=== PATIENT | female | born 1995 | race Caucasian/White ===

== ENCOUNTER 2024-05-08 23:03 | Inpatient (IN) ==
[2024-05-08] MEDS: LACTATED RINGER'S 1,000 ML IV PRN (23:45)
[2024-05-08] MEDS ORDERED: LIDOCAINE 1% LOCAL 20 ML VIAL INFIL PRN (23:49)
[2024-05-08] MEDS ORDERED: OXYTOCIN 30 UNITS/NSS 30 UNITS/500 ML BAG IV PRN (23:49)
[2024-05-09 00:12] LABS: Hematocrit (blood only) 36.6 % (37.0-47.0); Hemoglobin 12.1 g/dl (12.0-16.0); Mean Corpuscular Hemoglobin 28.9 pg (25.0-34.0); Mean Corpuscular Hgb Conc 33.1 g/dL (32.0-36.0); Mean Corpuscular Volume 87.6 fL (80.0-100.0); Mean Platelet Volume 10.7 fL (9.4-12.4); Platelet Count 194 K/uL (130-400); RDW Coefficient of Variation 13.1 % (11.5-14.5); RDW Standard Deviation 41.2 fL (36.4-46.3); Red Blood Count 4.18 M/uL (4.20-5.40); White Blood Count 13.92 K/ul (4.8-10.8)
[2024-05-09] MEDS ORDERED: BUPIVACAINE 0.25% PF 30 ML VIAL EPI PRN (00:38)
[2024-05-09] MEDS ORDERED: ePHEDrine sulfate 50 MG/ML AMP IV PRN (00:38)
[2024-05-09] MEDS ORDERED: NALOXONE HCL 1 MG in SODIUM CHLORIDE 0.9% 1,000 ML IV PRN (00:38)
[2024-05-09] MEDS ORDERED: NALBUPHINE HCL INJ 10 MG/ML AMP IV PRN (00:38)
[2024-05-09] MEDS ORDERED: LIDOCAINE 2% MPF LOCAL 5 ML VIAL EPI PRN (00:38)
[2024-05-09] MEDS ORDERED: ONDANSETRON INJ 2 MG/ML 2 ML VIAL IV PRN (00:38)
[2024-05-09] MEDS ORDERED: SODIUM CHLORIDE 0.9% PF INJ 10 ML VIAL EPI PRN (00:38)
[2024-05-09] MEDS ORDERED: fentaNYL citrate PF 100 MCG/2 ML VIAL EPI PRN (00:38)
[2024-05-09] MEDS ORDERED: ROPIVACAINE 0.5% PF 5 MG/ML 20 ML VIAL EPI PRN (00:38)
[2024-05-09] MEDS ORDERED: NALOXONE HCL 0.4 MG/1 ML VIAL/CARP IV PRN (00:38)
[2024-05-09] MEDS ORDERED: diphenhydrAMINE 50 MG/ML VIAL IV PRN (00:38)
--- NOTE | 2024-05-09 00:40 | Anesthesiology Consultation ---
Date of Service May 09, 2024 Assessment & Plan (1) Encounter for pre-operative examination: Chart Review Chart Review: Patient NOT seen in Pre Admission Testing and Acceptable Risk for Labor Epidural Consults Requested none History Height/Weight Height: 5 ft 5 in Weight: 114.759 kg Allergies Allergy/AdvReac Type Severity Reaction Status Date / Time No Known Allergies Allergy Unverified 02/27/19 08:46 Medications Home Medications Medication Instructions Recorded Confirmed Last Taken bupropion HCl 75 mg tablet 75 mg PO BID 02/26/19 02/27/19 02/26/19 08:00 desogestrel 0.15 mg-ethinyl 1 tab PO HS 02/26/19 02/27/19 02/25/19 estradiol 0.03 mg tablet (Apri) naltrexone 8 mg-bupropion 90 mg 1 tab PO BID 02/26/19 02/27/19 02/26/19 08:00 tablet,extended release hydrocodone 5 mg-acetaminophen 325 1 tab PO Q8H PRN pain #9 tabs 02/27/19 02/27/19 02/27/19 03:30 mg tablet ([place]) 1 tablet Active Medications Generic Name Dose Route Start Last Admin Trade Name Freq PRN Reason Stop Dose Admin Lactated Ringer's 1,000 mls @ 125 mls/hr 05/08/24 23:49 05/09/24 00:15 Lr IV 05/09/24 23:48 125 mls/hr .Q8H PRN Infusion L&D Protocol Protocol Past Medical History Medical History (Updated 05/09/24 @ 00:40 by Jamar Bedolla MD) Encounter for pre-operative examination No pertinent past medical history Exercise / Class Metabolic Activity II 4-5 Yardwork/Stairs/Walk up hill Past Surgical History Surgical History No pertinent past surgical history Social History Smoking Status: Never smoker Do You Dip or Chew Tobacco: No Hx Alcohol Use: No Hx Substance Use: No substance use type: does not use Physical Exam Vital Signs Last Vital Signs Temp 36.8 C 05/09/24 00:09 Pulse 71 05/09/24 01:00 Resp 18 05/09/24 00:09 BP 128/75 05/09/24 01:00 Pulse Ox 99 05/09/24 00:58 Testing Laboratory Results 05/09/24 00:00 05/09/24 00:00 05/09/24 00:05 POC Glucose 84
[2024-05-09] MEDS: BUPIVACAINE 0.25% PF 30 ML VIAL ONE (01:04)
[2024-05-09] MEDS: fentaNYL citrate PF 100 MCG/2 ML VIAL ONE (01:04)
[2024-05-09] MEDS: LIDOCAINE 2%/EPINEPHRINE 1:200,000 20 ML PF ONE (01:04)
[2024-05-09] MEDS: fentANYL 2 MCG/ML BUPIVacaine 0.125%-NSS 100ML BAG ONE (01:08)
[2024-05-09] MEDS: ePHEDrine sulfate 50 MG/ML AMP ONE (01:09)
[2024-05-09] MEDS: SODIUM CHLORIDE 0.9% PF INJ 10 ML VIAL ONE (01:09)
[2024-05-09] MEDS: SODIUM CHLORIDE 0.9% PF INJ 10 ML VIAL EPI STA (01:51)
[2024-05-09] MEDS: fentaNYL citrate PF 100 MCG/2 ML VIAL EPI STA (01:51)
[2024-05-09] MEDS: BUPIVACAINE 0.25% PF 30 ML VIAL EPI STA (01:51)
[2024-05-09] MEDS: LIDOCAINE 2%/EPINEPHRINE 1:200,000 20 ML PF EPI STA (01:51)
--- OUTSIDE RECORDS SUMMARY | 2024-05-09 03:48 | External Medical Summary ---
Author Name Unknown Address Unknown Organization K01:[facility] [address] [facility] [address] Laboratory Report Ordering Provider Test Date Status JUAN SAM 04/12/2024 15:25:14 Final Observation Date Value Abnormality Reference (Units ) Status Streptococcus agalactiae DNA [Presence] in Specimen by [place] with probe detection 04/12/2024 15:25:14 Negative Negative Final No Group B Streptococcus det ected by culture-enhanced PCR (amplified probe). GBS GBSCT - [facility] 04/12/2024 15:25:14 0.0 Final GBS SPCCT - [facility] 04/12/2024 15:25:14 32.6 Final Performing Location [facility] [place] [facility] [address] [place] [address]
--- OUTSIDE RECORDS SUMMARY | 2024-05-09 03:48 | External Medical Summary | Summary of Care ---
Author Name Unknown Organization [facility] Address [address] [place] [address] Phone [phone] Care Team Providers Care Lead Javascript Engineer Name Role Phone Sheila Hinton DEBRA Primary Care Provider [phone] Encounter Details Date Type Department Care Team (Late st Contact Info) Description 04/26/2024 11:00 AM EST Office Visit [facility], [address] [address] Inna Muro, DO [address] [place] [address] Obesity in , antepartum*; Diet controlled gestational diabetes mellitus (GDM) in third trimester; Ultrasound for screening for growth restriction; 37 weeks gestation of Allergies No known active allergiesdocumented as of this encounter (statuses as of 04/26/2024) Medications ALBUTEROL 90 MCG/ACT IN AERS 2 puffs every 4 hrs. as needed for cough, wheeze, chest tightness or shortness of breath and prior exercise 1 6 6 Active 27-0.8 MG Oral Tablet Take 1 Tablet by mouth daily at noon. Active Vitamin B-6 25 MG Oral TabletIndication s:Nausea and vomiting during Take 1 Tablet by mouth every 6 hours as needed for Nausea. 120 Tablet 1 4 Active Additional Information Patient not taking.Reported on 04/19/2024 Docusate Sodium 100 MG Oral Capsule (Colace)Indicati ons:Constipation during , antepartum Take 1 Capsule by mouth daily as needed for Constipation. 30 Capsule 2 4 Active Triamcinolone Acetonide 0.1 % External Ointment (Aristocort) Apply topically to affected area 2 times a day. To affected area. 15 g 1 4 Active Additional Information Patient not taking.Reported on 04/19/2024 Doxylamine Succinate (Sleep) 25 MG Oral Tablet (Unisom)Indicati ons:Nausea and vomiting during Take 0.5 Tablets by mouth at bedtime as needed for Nausea. 30 Tablet 1 4 Active Additional Information Patient not taking.Reported on 04/19/2024 Aspirin 81 MG Oral Tablet ChewableIndicati ons:Supervision of high-risk , second trimester Take 1 Tablet by mouth daily. 90 Tablet 2 4 Active Güdpod Verio In Vitro Strip (Glucose Blood)Indication s:Gestational diabetes mellitus (GDM) in third trimester, gestational diabetes method of control unspecified Test blood sugars 4 times a day (fasting and 1 hour after breakfast, lunch, and dinner). 125 Strip 3 4 Active Redwood SystemsTouch Verio w/Device KitIndications:G estational diabetes mellitus (GDM) in third trimester, gestational diabetes method of control unspecified Test blood sugars 4 times a day (fasting and 1 hour after breakfast, lunch, and dinner). 1 Kit 4 Active LancetsIndicatio ns:Gestational diabetes mellitus (GDM) in third trimester, gestational diabetes method of control unspecified Test blood sugars 4 times a day (fasting and 1 hour after breakfast, lunch, and dinner). 125 Each 3 4 Active documented as of this encounter (statuses as of 04/26/2024) Active Problems Problem Noted Date Diagnosed Date Diet controlled gestational diabetes mellitus (GDM) in third trimester 03/01/2024 Overview (04/25/2024): Diagnosed at 28 weeks Nutrition referral ordered; visit scheduled 03/08/2024 OneTouch Verio meter Lab Results Component Value Date/Time 50-G GESTATIONAL GLUCOSE, 1 HOUR - [facility] 139 (H) 02/16/2024 02:31 PM 100-G GESTATIONAL GLUCOSE, 1 HOUR - [facility] 180 (H) 02/23/2024 09:46 AM 100-G GESTATIONAL GLUCOSE, 2 HOUR - [facility] 133 02/23/2024 10:46 AM 100-G GESTATIONAL GLUCOSE, 3 HOUR - [facility] 51 (L) 02/23/2024 11:44 AM 100-G GESTATIONAL GLUCOSE, FASTING - [facility] 96 (H) 02/23/2024 08:45 AM 03/06/24: MFM [facility]T consult complete. Referred to Current [facility]. Instructions provided to report blood sugars each week for MFM review; recommend fasting 8-10 hours overnight along with having a bedtime snack of 30g CHO paired with protein; continue diet controlled 03/13/24: RPM reviewed; stable 03/20/20249636-TOO-wdkkgcc stable (< 50% elevated) 03/27/2024-RPM-2 of 8 elevated fasting blood sugars, 3 of 8 elevated post prandial breakfast, 1 elevated post prandial lunch, and 3 of 7 elevated post prandial dinner. Advised to watch diet, eat bedtime snack, and avoid fasting longer than 8 to 10 hours. Will review again next week. 04/03/20248532-GPK-nszzct (1 elevated post prandial breakfast and 1 post prandial dinner) 04/11/20242534-OYI-wfjcrqo stable (< 50% elevated) 04/17/20247718-KWM-jioqivp stable (< 50% elevated) 04/25/2024-RPM-4 of 7 elevated fasting blood sugars. Advised to watch diet, eat bedtime snack, and avoid fasting longer than 8 to 10 hours. Will review again next week. Assessment & Plan (04/26/2024 12:18 PM EST): Working with [facility]T. Assessment & Plan (03/03/2024 11:03 AM EST): CONSIDERATIONS: Reviewed etiology and risks associated with gestational diabetes mellitus (GDM), including risks to , fetus, and maternal progression to Type 2 DM. Instructed on proper use of glucometer; supplies ordered, if indicated. Advised that life-long screening for diabetes is recommended every 1-3 years. RECOMMENDATIONS: Recommend monitoring blood sugars with daily fasting blood sugar (maintained at less than 95) and 1 hour postprandial measurements (maintained at less than 140). Medications should be adjusted to maintain these target values. Report levels to MFM (Maternal- Medicine) weekly. Recommend nutrition consult with RDN (Registered Dietitian Data Entry Email Processor). Lifestyle changes are also indicated including optimizing gestational weight gain and physical activity of 30 minutes per day, if not otherwise contraindicated in . Insulin is preferred if medications are indicated to optimize euglycemia. Metformin (preferred over glyburide) may also be used in some circumstances. Reviewed the risks and benefits of each. Recommend ultrasound, surveillance and delivery as follows: A1GDM, delivery should be accomplished by 41w0d. A2GDM, recommend growth assessment with MFM every 4 weeks, initiate surveillance with twice weekly NSTs at 32 weeks and continue until delivery at 39 weeks. Recommend intrapartum monitoring every 1-2 hours (A2GDM) or every 4 hours (A1GDM) and treat with insulin if indicated. Recommend 2-hour glucose tolerance testing with 75-gram glucose load during admission (or 6-8 weeks if not completed). Assessment & Plan (03/01/2024 10:31 AM EST): 1'GTT and 3'GTT reviewed. Formal ADAPT consult scheduled for next week. Sharee has started checking sugars and reports all are within target range and she has an appt with the cook tortilla as well. We reviewed that additional u/s and surveillance will be needed it GDMA2 develops; encouraged follow up with ADAPT in case sugars do increase and medication is required. Questions answered. Low risk NIPT appreciated. Supervision of high-risk , [facility] 12/28/2023 Overview (04/16/2024): Estimated Date of Delivery: 05/11/24 Continue vitamin. O negative - Rhogam given on 02/16/2024. Rubella and varicella immune. Qnatal testing low risk. S/p anatomy ultrasound. Has GDM. S/p CBC - normal. No anemia. Tdap vaccine completed. GBS culture at 36 weeks. RSV vaccine - completed on 04/12/2024. Completed influenza vaccine. Desires to breastfeed. contraception: IUD at 6 weeks appointment. Constipation during , antepartum 2023 Overview (02/18/2024): Has Colace for constipation. May use Miralax as needed. Rh negative, antepartum 10/12/2023 Overview (02/18/2024): Rhogam given 02/16/2024. Obesity in , antepartum 10/12/2023 Overview (03/06/2024): Pre-gravid BMI 39.15. Class 2 Assessment & Plan (03/03/2024 11:03 AM EST): CONSIDERATIONS: Discussed obstetrical risks associated with class II obesity (pre- BMI of 35 to 39.9) Reviewed that the accuracy of ultrasound at diagnosing anomalies is significantly decreased for women with an increased BMI. RECOMMENDATIONS: Recommend restricting weight gain during to 11-20 pounds. Patient should be referred for a nutrition consult. Recommend evaluation for signs and symptoms (snoring, excessive daytime sleepiness witnessed apnea or unexplained hypoxia) of obstructive sleep apnea. If any of these are present, referral to Sleep Medicine specialist for further evaluation should be considered. Recommend Maternal- Medicine ultrasound for anatomy at 20 weeks and for growth every 4 weeks thereafter. For patients with Class 2 obesity, we recommend weekly surveillance starting at 37 weeks. Nausea and vomiting during 10/12/2023 NONALLERGIC RHINITIS 10/06/2005 Bronchospasm, exercise-induced Polycystic ovaries Estimated Date of Delivery Comme nts Yes 05/11/2024 Based on last me nstrual period of 08/05/2023 (Exact Date) documented as of this encounter (statuses as of 04/26/2024) Resolved Problems Problem Noted Date Diagnosed Date Resolved Date Low-lying placenta 02/18/2024 Overview (02/18/2024): Has follow up ultrasound scheduled. Advised no heavy lifting and no sexual intercourse. Declines Maternal Medicine referral. Assessment & Plan (03/01/2024 10:29 AM EST): Resolved. Migraine 12/23/2022 documented as of this encounter (statuses as of 04/26/2024) Immunizations Name Administration Dates Next Due COVID-19 mRNA, LNP-s, No Pre serve, 2-Dose Series ([facility]) 11/21/2020,10/31/2020 HEPATITIS B VACCINE, RECOMB, 20 MCG/ML, ADULT (HEPLISAV-B) 04/08/2023,03/04/2023 Pneumococcal Conjugate Vacci ne, 20-valent ([id number]) 12/23/2022 RSV Vac., Bivalent, Perfusio n F, Pf,0.5 Ml (Abrysvo) 04/12/2024 Seasonal Influenza Vac, Quad , Cell culture, with Preserve, 6 mon and above, (Flucelvax) 02/06/2019,01/31/2018,12/17/2016 Seasonal Influenza Virus Vac cine, Unspecified Formulation 01/31/2018,12/17/2016 Seasonal Influenza, PF, 6 M & above, IM , (FluLaval or Fluzone) 12/23/2022 Seasonal Influenza, Trivalen t, (IIV3), PF, (Fluzone) 12/22/2023 TDAP, Age 7 and older, IM (Adacel) 02/16/2024,,2004 documented as of this encounter Social History Tobacco Use Types Packs/Day Years Used Date Smoking Tobacco: Former Cigarettes 0.3 3 2 015 - 2018 Passive Smoke Exposure: Past Smokeless Tobacco: Never Comments:no passive smoke ex posures Alcohol Use Standard Drinks/Week Comments Not Currently 0 (1 standard drink = 0.6 oz pur e alcohol) denies in PHQ-2 Answer Date Recorded PHQ Adult Total Score 0 12/23/2022 Hunger Vital Sign Answer Date Recorded Within the past 12 months, y ou worried that your food would run out before you got the money to buy more. Never true 12/09/19 24 Within the past 12 months, t he food you bought just didn't last and you didn't have money to get more. Never true 12/09/2023 [place] Depression Scale Answer Date Recorded [place] Depression Scale Total 5 03/16/2024 The thought of harming myself has occurred to me . Never 03/16/2024 Childcare Answer Date Recorded Do you feel overwhelmed with taking care of a child, family member or friend? No 12/09/2023 Does your family need help f inding childcare? (Household - for ages 0-17 years) Not on file 12/09/2023 Clothing Answer Date Recorded Have you been unable to get clothing when it was really needed? No 12/09/2023 Is your family able to get c lothes or diapers when needed? (Household - for ages 0-17 years) Not on file 12/09/2023 Personal Safety Answer Date Recorded Do you feel unsafe or have concerns for your saf ety? No 12/09/2023 Do you have concerns for you r family's safety? (Household - for ages 0-17 years) Not on file 12/09/2023 Utilities Answer Date Recorded Do you have trouble paying y our heating, water, or electric bill? No 12/09/2023 Is your family able to pay t he heat, water, or electric bill? (Household - for ages 0-17 years) Not on file 12/09/2023 Does your family have access to good internet? (Household - for ages 0-17 years) Not on file 12/09/2023 Employment Status Answer Date Recorded Are you unemployed or without regular income? No 12/09/2023 Does the household have a [facility] source of income? (Household - for ages 0-17 years) Not on file 12/09/2023 Social Connections Answer Date Recorded How often do you feel lonely or isolated from th ose around you? Never 12/09/2023 Financial Resource Strain Answer Date R ecorded Do you have any trouble payi ng for your medications, or do you think you might in the future? No 12/09/2023 Does your family have troubl e paying for medicine? (Household - for ages 0-17 years) Not on file 12/09/2023 Transportation Needs Answer Date Record ed Do you have trouble getting a ride to medical visits or work? (Adult - for ages 18 years and over) Not on file 12/09/2023 Does your family have a hard time getting a ride to doctors visits? (Household - for ages 0-17 years) Not on file 12/09/2023 Has lack of transportation k ept you from medical appointments, meetings, work, or from getting things needed for daily living? Check all that apply. No 12/09/2023 Do you (or your family) have trouble finding or paying for a ride (transportation)? (Household - for ages 0-17 years) Not on file 12/09/2023 Housing Stability Answer Date Recorded Do you currently live in a s helter or have no steady place to sleep at night? No 12/09/2023 Do you think you are at risk of becoming homeless? (Adult - for ages 18 years and over) Not on file 12/09/2023 Does your family worry about paying for your home or becoming homeless? (Household - for ages 0-17 years) Not on file 0 12/09/2023 Are you homeless or worried that you might be in the future? No 12/09/2023 Are you (or your family) rogelio eless or worried that you might be in the future? (Household - for ages 0-17 years) Not on file Food Insecurity Answer Date Recorded Do you need food for this week? No 12/09/2023 Are you able to get enough f ood for your family? (Household - for ages 0-17 years) Not on file 12/09/2023 Does your family need food t his week? (Household - for ages 0-17 years) Not on file 12/09/2023 Do you always have enough fo od for your family? (Household - for ages 0-17 years) Not on file 12/09/2023 Food Insecurity Answer Date Recorded Within the past 12 months, y ou worried that your food would run out before you got the money to buy more. Never true 12/09/19 24 Within the past 12 months, t he food you bought just didn't last and you didn't have money to get more. Never true 12/09/2023 Do you need food for this week? 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 Ultrasound for screening for growth restriction 37 weeks gestation of Ultrasound summary: Patient presented at 37w 6d for growth assessment. Normal growth with EFW 3146 g at 44%ile. Normal SUJATA at 15 cm. Cephalic presentation. I reviewed the ultrasound images. Sharee was given the opportunity to meet with me if she had any questions. Please refer to the ultrasound report for additional details about today's ultrasound examination. RECOMMENDATIONS: Follow up with MFM for ultrasound as clinically indicated. See prior formal MFM consultation note. Thank you for allowing us to participate in the care of this patient. Please call with any questions. Inna Muro DO 04/26/2024 12:18 PM documented in this encounter Miscellaneous Notes * Assessment & Plan Note - Inna Muro DO - 04/26/2024 12:18 PM EST Associated Problem(s): Diet controlled gestational diabetes mellitus (GDM) in third trimester Working with [facility]. documented in this encounter Plan of Treatment Upcoming Encounters Date Type Department Care Team (Late st Contact Info) Description 04/27/2024 2:30 PM EST Telemedicine Nutrition Services [address] [place] [address] Michael Goddard, RDN [facility] [place] [address] 05/03/2024 1:30 PM EST Office Visit Gynecology/Obstetrics Paula Jean [address] [place] [address] Kezia Phillips, DNP, CNM [address] [place] [address] Ted, Non Stress Tests Paula [address] [place] [address] 05/09/2024 1:15 PM EST Office Visit Gynecology/Obstetrics Paula Jean [address] [place] [address] Magda Latif CRNP [address] [place] [address] Ted, Non Stress Tests Paula [address] [place] [address] Health Maintenance Due Date Last Done Comments HPV/Co-Test 09/20/2023 COVID-19 Vaccine ( season) 2023 11/21/2020, 10/31/2020 Depression Screening 12/24/2023 12/23/2022 Cervical Cancer Screening 01/20/2026 Pap Smear 01/20/2026 01/20/2023 DTap/Tdap Vaccines (4 - Td or Tdap) 02/15/2034 02/16/2024, 08/31/2018, 2004 Pneumococcal Vaccine: Pediatrics (0 to 5 Years) and At-Risk Patients (6 to 18 Years and 19+ Years) Completed 12/23/2022 Hepatitis B Vaccine Completed 04/08/2023, Influenza Vaccine (FLU shot) Completed 04/2023, 12/23/2022, 02/06/2019, Additional history exists HPV (Gardasil) Vaccine Aged Out No lo nger eligible based on patient's age to complete this topic MENINGOCOCCAL (MENACTRA/MENVEO) Aged Out No longer eligible based on patient's age to complete this topic documented as of this encounter Medical Devices Not on filedocumented as of this encounter Visit Diagnoses Diagnosis Diet controlled gestational diabetes mellitus (GDM) in third trimester- Primary Low-lying placenta Hemorrhage from placenta previa, unspecified as to episode of care Encounter for anatomic survey 29 weeks gestation of state, incidental Supervision of high risk in third trimester- Primary Unspecified high-risk 30 weeks gestation of state, incidental Diet controlled gestational diabetes mellitus (GDM) in third trimester Obesity in , antepartum Obesity complicating , childbirth, or the puerperium, antepartum condition or complication Obesity in , antepartum- Primary Obesity complicating , childbirth, or the puerperium, antepartum condition or complication Diet controlled gestational diabetes mellitus (GDM) in third trimester Ultrasound for screening for growth restriction screening for growth retardation using ultrasonics 37 weeks gestation of state, incidental documented in this encounter Care Teams Lead Javascript Engineer Relationship Specialty Start Date End Date Sheila Hinton CRNP [address] [place] [id number] PCP - General Nurse Practitioner 12/23/22 documented as of this encounter
--- OUTSIDE RECORDS SUMMARY | 2024-05-09 03:48 | External Medical Summary | Summary of Care ---
Author Name Unknown Organization [facility] Address [address] [place] [address] Phone [phone] Care Team Providers Care Drier Name Role Phone Sheila Hinton DEBRA Primary Care Provider [phone] Reason for Visit * Reason Comments Return Visit Encounter Details Date Type Department Care Team (Late st Contact Info) Description 04/12/2024 1:45 PM EST Office Visit Gynecology/Obstetics [place] [address] [place] [id number] Sasha Lima PA-C [address] [place] [address] Supervision of high-risk , third trimester*; Rh negative, antepartum; Diet controlled gestational diabetes mellitus (GDM) in third trimester; Obesity in , antepartum Allergies No known active allergiesdocumented as of this encounter (statuses as of 04/16/2024) Medications ALBUTEROL 90 MCG/ACT IN AERS 2 puffs every 4 hrs. as needed for cough, wheeze, chest tightness or shortness of breath and prior exercise 1 6 10/06/ 6 Active 27-0.8 MG Oral Tablet Take 1 Tablet by mouth daily at noon. Active Vitamin B-6 25 MG Oral TabletIndication s:Nausea and vomiting during Take 1 Tablet by mouth every 6 hours as needed for Nausea. 120 Tablet 1 4 Active Additional Information Patient not taking.Reported on 03/06/2024 Docusate Sodium 100 MG Oral Capsule (Colace)Indicati ons:Constipation during , antepartum Take 1 Capsule by mouth daily as needed for Constipation. 30 Capsule 2 4 Active Triamcinolone Acetonide 0.1 % External Ointment (Aristocort) Apply topically to affected area 2 times a day. To affected area. 15 g 1 4 Active Additional Information Patient not taking.Reported on 03/06/2024 Doxylamine Succinate (Sleep) 25 MG Oral Tablet (Unisom)Indicati ons:Nausea and vomiting during Take 0.5 Tablets by mouth at bedtime as needed for Nausea. 30 Tablet 1 4 Active Additional Information Patient not taking.Reported on 03/06/2024 Aspirin 81 MG Oral Tablet ChewableIndicati ons:Supervision of high-risk , second trimester Take 1 Tablet by mouth daily. 90 Tablet 2 4 Active OneTouch Verio In Vitro Strip (Glucose Blood)Indication s:Gestational diabetes mellitus (GDM) in third trimester, gestational diabetes method of control unspecified Test blood sugars 4 times a day (fasting and 1 hour after breakfast, lunch, and dinner). 125 Strip 3 4 Active OneTouch Verio w/Device KitIndications:G estational diabetes mellitus (GDM) [...] as of this encounter (statuses as of 04/16/2024) Active Problems Problem Noted Date Diagnosed Date Diet controlled gestational diabetes mellitus (GDM) in third trimester 03/01/2024 Overview (04/11/2024): Diagnosed at 28 weeks Nutrition referral ordered; [...] continue diet controlled 03/13/24: RPM reviewed; stable 03/20/20242394-RHR-omrpszo stable (< 50% elevated) 03/27/2024-RPM-2 of 8 elevated fasting blood sugars, 3 of 8 elevated post prandial breakfast, 1 elevated post prandial lunch, and 3 of 7 elevated post prandial dinner. Advised to watch diet, eat bedtime snack, and avoid fasting longer than 8 to 10 hours. Will review again next week. 04/03/20246733-EOW-rhcxix (1 elevated post prandial breakfast and 1 post prandial dinner) 04/11/20249714-YYC-selakuz stable (< 50% elevated) Assessment & Plan (03/03/2024 11:03 AM EST): [...] Recommend nutrition consult with RDN (Registered Dietitian Malted Milk Supervisor). Lifestyle changes are also indicated including optimizing [...] and she has an appt with the closet builder as well. We reviewed that additional u/s and surveillance will be needed it GDMA2 develops; encouraged follow up with [facility] in case sugars do increase and medication is required. Questions answered. Low risk NIPT appreciated. Supervision of high-risk , third [facility] 12/28/2023 Overview (04/16/2024): Estimated Date [...] as of this encounter (statuses as of 04/16/2024) Resolved Problems Problem Noted Date Diagnosed Date Resolved Date Low-lying placenta 02/18/2024 Overview (02/18/2024): Has follow up ultrasound scheduled. Advised no heavy lifting and no sexual intercourse. Declines Maternal Medicine referral. Assessment & Plan (03/01/2024 10:29 AM EST): Resolved. Migraine 12/23/2022 documented as of this encounter (statuses as of 04/16/2024) Immunizations Name Administration Dates Next Due COVID-19 mRNA, LNP-s, No Pre serve, 2-Dose Series ([employer]) 11/21/2020,10/31/2020 HEPATITIS B VACCINE, RECOMB, 20 MCG/ML, ADULT (HEPLISAV-B) 04/08/2023,03/04/2023 Pneumococcal Conjugate Vacci ne, 20-valent ([id number]) 12/23/2022 RSV Vac., Bivalent, Perfusio n F, [...] Former Cigarettes 0.3 3 2 015 - 2017 Passive Smoke Exposure: Past Smokeless Tobacco: Never [...] money to get more. Never true 12/09/2023 [place] Depression Scale Answer Date Recorded [place] Depression Scale Total 5 03/16/2024 The thought [...] No 12/09/2023 Does the household have a re lar source of income? 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 BP 108/72 | Wt 114 kg (251 lb 4.8 oz) | LMP 08/05/2023 (Exact Date) | BMI 41.87 kg/m | BSA 2.29 m Doing well. Denies vaginal bleeding, leaking of fluid, vaginal pressure, abdominal pain, or abnormal vaginal discharge. Denies blurry vision or right upper quadrant pain. Patient states she feels good movement. Patient has about two raisa ly contractions per day. Patient had a headache yesterday, but resolved. Physical Exam General: alert and oriented, no acute distress Pulmonary: normal respiratory effort, no accessory muscle use. Abdomen: gravid, soft, non-tender heart rate: 140's bpm Pelvic Exam: external genitalia and vagina anatomy within normal limits, GBS culture obtained today. Network Internship Documentation Patient offered fruit buying grader and declined. [facility] Problems (from 09/24/23 to present) Problem Noted Diagnosed Resolved Diet controlled gestational diabetes mellitus (GDM) in third trimester 03/01/2024 by Inna Muro DO No Diagnosed at 28 weeks Nutrition referral ordered; [...] continue diet controlled 03/13/24: RPM reviewed; stable 03/20/20241334-MMV-cifmkis stable (< 50% elevated) 03/27/2024-RPM-2 of 8 elevated fasting blood sugars, 3 of 8 elevated post prandial breakfast, 1 elevated post prandial lunch, and 3 of 7 elevated post prandial dinner. Advised to watch diet, eat bedtime snack, and avoid fasting longer than 8 to 10 hours. Will review again next week. 04/03/20249859-DTO-ebglub (1 elevated post prandial breakfast and 1 post prandial dinner) 04/11/20245884-JYE-iadvcym stable (< 50% elevated) Supervision of high-risk , third trimester 12/28/2023 by Sasha Lima PA-C No Estimated Date of Delivery: 05/11/24 Continue vitamin. O negative - Rhogam given on 02/16/2024. Rubella and varicella immune. Qnatal testing low risk. S/p anatomy ultrasound. Has GDM. S/p CBC - normal. No anemia. Tdap vaccine completed. GBS culture at 36 weeks. RSV vaccine - given on 04/12/2024. Completed influenza vaccine. contraception: IUD at 6 weeks appointment. Constipation during , antepartum 10/16/2023 by Sasha Lima PA-C No Has Colace for constipation. May use Miralax as needed. Rh negative, antepartum 10/12/2023 by Sasha Lima PA-C No Rhogam given 02/16/2024. Obesity in , antepartum 10/12/2023 by Sasha Lima PA-C No Pre-gravid BMI 39.15. Class 2 Plan: -GBS culture obtained today. -Desires to deliver at [facility]. Advised next appointment at [facility]. Patient agrees. -Desires to breastfeed. - contraception: IUD at 6 weeks appointment. -Advised weekly non stress test starting at 37 weeks. Patient aware. Counseled patient to call triage/go to labor and delivery if she has any vaginal bleeding, leaking of fluid, vaginal pressure, 6 or more painful contractions in an hour, abdominal pain, decreased movements, headaches, blurry vision, or right upper quadrant pain. Patient verbalized understanding. RTO in 1 week for return appointment or sooner if any concerns. Sasha Larson PA-C documented in this encounter Nursing Notes * Kath Fischer RN - 04/12/2024 2:26 PM EST Pre-Administration Time Out Procedure Performed: Yes Patient Identified (Ask Name/Date of ): Yes Does the patient have a fever greater than 101 degrees today? No Patient allergic to latex? No Has the patient ever fainted after receiving an injection? No VFC Stock: No Immunization(s) verified: Yes, Immunization Name: RSV Abrysvo, VIS Sheet(s) given: Yes Verified Side and Site: Yes Verified Shot(s) with Parent(s)/Patient: Yes * Kath Fischer RN - 04/12/2024 1:49 PM EST Pt presents for ALLA. Reports she has questions regarding her recent u/s results. documented in this encounter Plan of Treatment Upcoming Encounters Date Type Department Care Team (Late st Contact Info) Description 04/19/2024 1:45 PM EST Office Visit Gynecology/Obstetrics [facility] [address] [place] [address] BackerMagda CRNP [address] [place] [address] 04/26/2024 11:00 AM EST Imaging Radiology, [facility] [address] [place] [address] 04/26/2024 1:45 PM EST Office Visit Gynecology/Obstetics [place] [address] [place] [phone] Sasha Lima PA-C [address] [place] [address] 04/27/2024 2:30 PM EST Telemedicine Nutrition Services [place] [address] [place] [address] Michael Goddard, RDN [address] [place] [phone] 05/10/2024 1:45 PM EST Office Visit Gynecology/Obstetics [place] [address] [place] [phone] Sasha Lima PA-C [address] [place] [address] 05/17/2024 1:45 PM EST Office Visit Gynecology/Obstetics [place] [address] [place] [phone] Sasha Lima PA-C [address] [place] [address] Health Maintenance Due Date Last Done Comments [...] Not on filedocumented as of this encounter Procedures Procedure Name Priority Date/Time Associated Diagnosis Comments GROUP B STREP CULTURE/PCR Routine 04/12/2024 3:25 PM EST Supervision of high-risk , third trimester documented in this encounter Results * GROUP B STREP CULTURE/PCR (04/12/2024 3:25 PM EST) Group B Strep PCR Result Negative Negative 04/13/2024 7:52 PM EST LABORATORY [facility] Comment:No Group B Streptoco ccus detected by culture-enhanced PCR (amplified probe). GBS GBSCt 0.0 04/13/2024 7:52 PM EST LABORATORY [facility] GBS SPCCt 32.6 04/13/2024 7:52 PM EST LABORATORY [facility] Swab Rectum and vagina, CS / Unknown 04/12/2024 3:25 PM EST 04/12/2024 4:36 PM EST us Sasha Bosch PA-C LAB MICRO - GENER AL ORDERABLES Final Result LABORATORY [facility] [address] [place] [address] documented in this encounter Visit Diagnoses Diagnosis Diet controlled [...] or the puerperium, antepartum condition or complication Supervision of high-risk , third trimester- Primary Rh negative, antepartum Rhesus isoimmunization affecting management of mother, antepartum condition Diet controlled gestational diabetes mellitus (GDM) in third trimester Obesity in , antepartum Obesity complicating , childbirth, or the puerperium, antepartum condition or complication documented in this encounter Care Teams Drier Relationship Specialty Start Date End Date Sheila Hinton CRNP [address] [address] PCP - General Nurse Practitioner 12/23/22 documented as of this encounter"
--- OUTSIDE RECORDS SUMMARY | 2024-05-09 03:48 | External Medical Summary | Summary of Care ---
Author Name Unknown Organization [facility] Address [address] [place] [address] Phone [phone] Care Team Providers Care Mold Builder Name Role Phone Sheila Hinton DEBRA Primary Care Provider [phone] Reason for Visit * Reason Comments DSMT Follow-Up * Evaluate & Treat - Unlimited Visits (Within 3 days (urgent)) - Authorized Specialty Diagnoses / Procedures Referred By Contac t Referred To Contact Homicide Squad Captain / Nutrition Services Diagnoses Gestational diabetes mellitus (GDM) in third trimester, gestational diabetes method of control unspecified Sasha Lima PA-C [address] [place] [address] Phone: tel: fax: Referral ID Status Reason Start Date Expiration Date Visits Requested Visits Authorized [id number] Authorized Specialty Services Required 02/24/2024 02/26/[phone] Encounter Details Date Type Department Care Team (Late st Contact Info) Description 04/27/2024 2:30 PM EST Telemedicine Nutrition Services [place] [address] [place] [address] Rd [address] [place] [address] Michael Goddard RDN [address] [place] [address] Diet controlled gestational diabetes mellitus (GDM) in third trimester*; Gestational diabetes mellitus (GDM) in third trimester, gestational diabetes method of control unspecified Allergies No known active allergiesdocumented as of this encounter (statuses as of 04/28/2024) Medications ALBUTEROL 90 MCG/ACT IN AERS 2 [...] as of this encounter (statuses as of 04/28/2024) Active Problems Problem Noted Date Diagnosed Date [...] continue diet controlled 03/13/24: RPM reviewed; stable 03/20/20242263-CWF-cuqwjsk stable (< 50% elevated) 03/27/2024-RPM-2 of 8 elevated fasting blood sugars, 3 of 8 elevated post prandial breakfast, 1 elevated post prandial lunch, and 3 of 7 elevated post prandial dinner. Advised to watch diet, eat bedtime snack, and avoid fasting longer than 8 to 10 hours. Will review again next week. 04/03/20242689-CBI-jgyhwh (1 elevated post prandial breakfast and 1 post prandial dinner) 04/11/20245352-QZZ-pcskgny stable (< 50% elevated) 04/17/20241409-DLC-hvvvlwt stable (< 50% elevated) 04/25/2024-RPM-4 of 7 [...] Recommend nutrition consult with RDN (Registered Dietitian Consulting Business Developer). Lifestyle changes are also indicated including optimizing [...] and she has an appt with the bumper machine operator as well. We reviewed that additional u/s and surveillance will be needed it GDMA2 develops; encouraged follow up with [facility] in case sugars do increase and medication is required. Questions answered. Low risk NIPT appreciated. Supervision of high-risk , third trimbrenda ter 12/28/2023 Overview (04/16/2024): Estimated Date of Delivery: [...] as of this encounter (statuses as of 04/28/2024) Resolved Problems Problem Noted Date Diagnosed Date Resolved Date Low-lying placenta 02/18/2024 Overview (02/18/2024): Has follow up ultrasound scheduled. Advised no heavy lifting and no sexual intercourse. Declines Maternal Medicine referral. Assessment & Plan (03/01/2024 10:29 AM EST): Resolved. Migraine 12/23/2022 documented as of this encounter (statuses as of 04/28/2024) Immunizations Name Administration Dates Next Due COVID-19 mRNA, LNP-s, No Pre serve, 2-Dose Series ([employer]) 11/21/2020,10/31/2020 HEPATITIS B VACCINE, RECOMB, 20 MCG/ML, ADULT (HEPLISAV-B) 04/08/2023,03/04/2023 Pneumococcal Conjugate Vacci ne, 20-valent ([id number]) 12/23/2022 RSV Vac., Bivalent, Perfusio n F, [...] money to get more. Never true 12/09/2023 [place] Depression Scale Answer Date Recorded [place] Depression Scale Total 5 03/16/2024 The thought [...] 12/09/2023 Does the household have a re gular source of income? 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 I was not in a hospital or clinic location. After connecting through [email or web address], patient was verified with two unique identifiers. Patient (or authorized legal signs sales representative) was then informed that this was a Telemedicine visit and being conducted confidentially over secure lines. Methods to assure confidentiality were taken. Patient acknowledged consent and understanding of privacy and security of the Telemedicine visit. The patient agreed to participate. Last order of DIABETES MANAGEMENT EDUCATION (ADA) REFERRAL was found on 02/24/2024 from Telephone on02/24/2024 Last order of CLINICAL NUTRITION AND DIABETES EDUCATION ANNUAL RENEWAL was found on 03/27/2024 from Telephone on 03/27/2024 No order of PEDIATRIC DIABETES MANAGEMENT EDUCATION (ADA) REFERRAL OP is found. 38 weeks. JOSE ALFREDO 05/11/[address]? Yes Participant scheduled for 1:1 training due to lack of classes scheduled within 2 months of appointment. What diabetes concerns and/or barriers to care would you like to discuss in your appointment: No specific questions or concerns. In your words, what is diabetes? Managing blood sugar. Do you know the risks of uncontrolled diabetes? Yes Do you believe that diabetes can be controlled? Yes Are you ready to make small changes to help with diabetes self-management: Yes What type of diabetes do you have? Gestational Diabetes Mellitus: Are you aware of the post- glucose screening recommendations? Yes Diabetes diagnosis year: 2024 Do you have a family history of diabetes? Yes Have you had any previous diabetes education? Yes Support systems: Spouse Parents Barriers to care: None Special Needs: None Psychosocial Screening: Lately have you been feeling down, depressed or hopeless most of the day? No How Do You Manage Stress? Asked/Not Answered Food Insecurity: Within the past 12 months, I worried whether our food would run out before we got money to buy more. No Within the past 12 months, the food we bought just did not last and we did not have money to buy more. No Sleep Health: Reports she sleeps "like a rotisserie chicken." Diabetes Medications: None Monitoring blood glucose, interpreting and using results Self-Monitoring Blood Glucose Source of Information: Participant verbally reviewed from memory After meals >140mg/dL After potatoes: 160mg/dL AM <95mg/dL: 96mg/dL today but not regularly. Summary: High blood glucose ~3 times a week since taking GDM class. Hypoglycemia?: No Diet: Describes typical diet history/24-hour recall Breakfast: breakfast sandwich from work (126mg/dL) Snack: Protein bar Lunch: Chicken wrap (118mg/dL) Snacks: protein bar Dinner: Chicken and veg tonight. Taco in a carb friendly wrap last night. Snacks: none Drinks: Water, liquid IV, diet soda, poppy Restaurant meals: daily Counting Carbohydrates Weight management review: Wt Readings from Last 6 Encounters: 04/25/24 115.7 kg (255 lb) 04/19/24 115.4 kg (254 lb 6.4 oz) 04/12/24 114 kg (251 lb 4.8 oz) 03/29/24 115.6 kg (254 lb 12.8 oz) 03/16/24 116.4 kg (256 lb 9.6 oz) 03/01/24 116 kg (255 lb 11.2 oz) Recent weight changes: 38 weeks. weight gain 20lb Physical Activity: On feet all day at work. ADA STANDARDS OF CARE/BUNDLE MEASURES Diabetes Bundle / Standards of Care: Gestational Diabetes Participant Therapy Management Plan: Hypertension: BP Readings from Last 3 Encounters: 04/25/24 112/70 04/19/24 110/70 04/12/24 108/72 Gestational Diabetes Participant, being monitored by SUPERVISOR SOUND TECHNICIAN. Dyslipidemia: Lab Results Component Value Date/Time LDL CHOLESTEROL (CALCULATED) - [facility] 128 02/27/2023 09:56 AM Lab Results Component Value Date/Time TRIGLYCERIDES - [facility] 53 02/27/2023 09:56 AM CHOLESTEROL - [facility] 193 02/27/2023 09:56 AM HDL CHOLESTEROL - [facility] 54 02/27/2023 09:56 AM Gestational Diabetes Mellitus Participant Kidney function review: No results found for: "ESTIMATED GLOMERULAR FILTRATION RATE - [facility]" No results found for: "ALBUMIN / CREATININE RATIO", "ALBUMIN / CREATININE RATIO, URINE - [facility]" No results found for: "PROTEIN/ CREATININE RATIO", "PROTEIN/ CREATININE RATIO, URINE - [facility]" Gestational Diabetes Mellitus Participant DSMT/Diabetes MNT Diagnosis: Food and nutrition related knowledge deficit related to gestational diabetes management as evidenced by need for education DSMT Initial Visit Assessment of Content Areas: Choose the answer that represents the participant's competency in each area. All need to be assessed at initial. Areas taught must match intervention. If content area not assessed and/or intervened today, it will be deferred to future session. Diabetes disease process and treatment process: Needs review (2) Incorporating nutrition management into lifestyle: Needs review (2) Incorporating physical activity into lifestyle: Needs review (2) Using medications safely: Not assessed (0) Monitoring blood glucose, interpreting and using results: Comprehends storey points (3) Prevention, detection, and treatment of acute complications: Not assessed (0) Prevention, detection, and treatment of chronic complications: Needs review (2) Developing strategies to address psychosocial issues: Needs review (2) Developing strategies to promote health/change behavior: Needs review (2) DSMT/ Diabetes MNT intervention: Promote health/Change behavior: : Reviewed importance of glucose screening after having gestational diabetes. Participant Selected Behavioral Objective: Promoting health changes: I will follow up with GTT Recommended Medication Changes: No changes. Education materials given to participant/caregiver and reviewed during today's visit: None given today Diabetes Self-Management Support:: Websites: www.diabetes.org Possible Future Topics: Content areas that were not assessed in first visit: Medications Acute complications Time Spent With Patient: Time in: 2:33 PM Time out: 3:03 PM Billing: DSMT: 30 Minutes Plan for Return: PRN. JOSE ALFREDO 05/11/24. Participant provided with contact information for Diabetes Care and Mica Inspector. All [facility] providers within the system are able to see [place] [employer] education and outcomes within the participant's electronic medical record. Michael Goddard RDN, NUTRITION SERVICES [facility] Diabetes Care and Mica Inspector documented in this encounter Plan of Treatment Upcoming Encounters Date Type Department Care Team (Late st Contact Info) Description 05/03/2024 1:30 PM EST Office Visit Gynecology/Obstetrics [facility] [address] [place] [address] Kezia Phillips DNP, CNM [address] [place] [address] Ted Non Stress Tests [facility] [address] [place] [address] 05/09/2024 1:15 PM EST Office Visit Gynecology/Obstetrics [facility] [address] [place] [address] Backer, DEBRA [place] [address] [place] [address] Ted, Non Stress Tests [facility] [address] [place] [address] Health Maintenance Due Date Last Done Comments [...] ultrasonics 37 weeks gestation of state, incidental Gestational diabetes mellitus (GDM) in third trimester, gestational diabetes method of control unspecified documented in this encounter Care Teams Mold Builder Relationship Specialty Start Date End Date Sheila Hinton CRNP [address] [facility] [place] [address] PCP - General Nurse Practitioner 12/23/22 documented as of this encounter
--- OUTSIDE RECORDS SUMMARY | 2024-05-09 03:48 | External Medical Summary | Summary of Care ---
Author Name Unknown Organization [facility] Address [address] [place] [address] Phone [phone] Care Team Providers Care Restaurant General Manager Name Role Phone Sheila Hinton Primary Care Provider [phone] Reason for Visit * Reason Comments Return Visit Non Stress Test Encounter Details Date Type Department Care Team (Late st Contact Info) Description 04/25/2024 11:45 AM EST Office Visit Gynecology/Obstetric s [facility] [address] [place] [address] BackerMagda CRNP [address] [place] [address] Supervision of high-risk , third trimester*; Rh negative, antepartum; Obesity in , antepartum; Nausea and vomiting during ; Constipation during , antepartum; Diet controlled gestational diabetes mellitus (GDM) in third trimester Allergies No known active allergiesdocumented as of this encounter (statuses as of 04/25/2024) Medications ALBUTEROL 90 MCG/ACT IN AERS 2 [...] as of this encounter (statuses as of 04/25/2024) Active Problems Problem Noted Date Diagnosed Date [...] continue diet controlled 03/13/24: RPM reviewed; stable 03/20/20241176-NZZ-akxfgnt stable (< 50% elevated) 03/27/2024-RPM-2 of 8 elevated fasting blood sugars, 3 of 8 elevated post prandial breakfast, 1 elevated post prandial lunch, and 3 of 7 elevated post prandial dinner. Advised to watch diet, eat bedtime snack, and avoid fasting longer than 8 to 10 hours. Will review again next week. 04/03/20244330-VCO-qhbaew (1 elevated post prandial breakfast and 1 post prandial dinner) 04/11/20240962-DTS-vuphmgs stable (< 50% elevated) 04/17/20247757-GMR-mwhmhih stable (< 50% elevated) 04/25/2024-RPM-4 of 7 elevated fasting blood sugars. Advised to watch diet, eat bedtime snack, and avoid fasting longer than 8 to 10 hours. Will review again next week. Assessment & Plan (03/03/2024 11:03 AM EST): [...] Recommend nutrition consult with RDN (Registered Dietitian Box Loader). Lifestyle changes are also indicated including optimizing [...] and she has an appt with the last trimmer as well. We reviewed that additional u/s and surveillance will be needed it GDMA2 develops; encouraged follow up with [facility] in case sugars do increase and medication is required. Questions answered. Low risk NIPT appreciated. Supervision of high-risk , [facility] 12/28/2023 Overview (04/16/2024): Estimated Date of Delivery: [...] as of this encounter (statuses as of 04/25/2024) Resolved Problems Problem Noted Date Diagnosed Date Resolved Date Low-lying placenta 02/18/2024 Overview (02/18/2024): Has follow up ultrasound scheduled. Advised no heavy lifting and no sexual intercourse. Declines Maternal Medicine referral. Assessment & Plan (03/01/2024 10:29 AM EST): Resolved. Migraine 12/23/2022 documented as of this encounter (statuses as of 04/25/2024) Immunizations Name Administration Dates Next Due COVID-19 mRNA, LNP-s, No Pre serve, 2-Dose Series ([employer]) 11/21/2020,10/31/2020 HEPATITIS B VACCINE, RECOMB, 20 MCG/ML, ADULT (HEPLISAV-B) 04/08/2023,03/04/2023 Pneumococcal Conjugate Vacci ne, 20-valent ([id number]) 12/23/2022 RSV Vac., Bivalent, Perfusio n F, [...] money to get more. Never true 12/09/2023 [place] Depression Scale Answer Date Recorded [place] Depression Scale Total 5 03/16/2024 The thought [...] No 12/09/2023 Does the household have a [facility] source [facility] income? 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 No ctx, leaking/bleeding. Discussed MFM recommendation for delivery by 41 weeks due to GDMA 1, pt agreeable to IOL in 40th week. Scheduled for 05/11 at 40w0d. Scheduled for MFM growth scan tomorrow. Return in 1 week for ALLA/NST. ASSESSMENT assessment with Non-stress Test completed on 04/25/2024 at 37.5 weeks gestation for indication of obesity heart baseline: 140 bpm Variability: Moderate Decelerations: absent Accelerations: present Contractions: None NST start time: 1155 NST stop time: 1223 NST strip reviewed, interpreted, and approved by OB provider, DEBRA Solorzano . NST strip stored in clinic storage file documented in this encounter Plan of Treatment Upcoming Encounters Date Type Department Care Team (Late st Contact Info) Description 04/26/2024 11:00 AM EST Imaging Radiology, [address] [address] 04/26/2024 11:00 AM EST Office Visit Staff [employer] Officer Obstetrics Maternal Medicine, [address] [address] Inna Muro, DO [address] [facility] [address] 04/27/2024 2:30 PM EST Telemedicine Nutrition Services [address] [place] [address] Michael Goddard, RDN [address] [place] [id number] 05/03/2024 1:30 PM EST Office Visit Gynecology/Obstetrics [facility] [address] [place] [address] Kezia Phillips, DNP, CNM [address] [place] [address] Ted, Non Stress Tests Paula [address] [place] [address] 05/09/2024 1:15 PM EST Office Visit Gynecology/Obstetrics [facility] [address] [place] [address] Backer, DEBRA Townsend [address] [place] [address] Ted, Non Stress Tests Paula [address] [place] [address] Health Maintenance Due Date Last Done Comments [...] isoimmunization affecting management of mother, antepartum condition Obesity in , antepartum Obesity complicating , childbirth, or the puerperium, antepartum condition or complication Nausea and vomiting during Constipation during , antepartum Diet controlled gestational diabetes mellitus (GDM) in third trimester documented in this encounter Care Teams Restaurant General Manager Relationship Specialty Start Date End Date Sheila Hinton CRNP [address] [facility] [place] [address] PCP - General Nurse Practitioner 12/23/22 documented as of this encounter
--- OUTSIDE RECORDS SUMMARY | 2024-05-09 03:48 | External Medical Summary | Summary of Care ---
Author Name Unknown Organization [facility] Address [address] [place] [address] Phone [phone] Care Team Providers Care Seamless Tube Drawer Name Role Phone Sheila Hinton Primary Care Provider [phone] Reason for Visit * Reason Comments Return Visit Non Stress Test Encounter Details Date Type Department Care Team (Late st Contact Info) Description 05/03/2024 9:15 AM EST Office Visit Gynecology/Obstetric s [facility] [address] [place] [address] BackerMagda CRNP [address] [place] [address] Ted Non Stress Tests Paula [address] [place] [address] Supervision of high-risk , third trimester*; Rh negative, antepartum; Obesity in , antepartum; Nausea and vomiting during ; Constipation during , antepartum; Diet controlled gestational diabetes mellitus (GDM) in third trimester Allergies No known active allergiesdocumented as of this encounter (statuses as of 05/03/2024) Medications ALBUTEROL 90 MCG/ACT IN AERS 2 [...] as of this encounter (statuses as of 05/03/2024) Active Problems Problem Noted Date Diagnosed Date Diet controlled gestational diabetes mellitus (GDM) in third trimester 03/01/2024 Overview (05/01/2024): Diagnosed at 28 weeks Nutrition referral ordered; [...] continue diet controlled 03/13/24: RPM reviewed; stable 03/20/20246042-RTT-pxapzhw stable (< 50% elevated) 03/27/2024-RPM-2 of 8 elevated fasting blood sugars, 3 of 8 elevated post prandial breakfast, 1 elevated post prandial lunch, and 3 of 7 elevated post prandial dinner. Advised to watch diet, eat bedtime snack, and avoid fasting longer than 8 to 10 hours. Will review again next week. 04/03/20243751-ILR-otryzc (1 elevated post prandial breakfast and 1 post prandial dinner) 04/11/20246342-JXZ-lhvrkgv stable (< 50% elevated) 04/17/20244953-RDZ-pupgkil stable (< 50% elevated) 04/25/2024-RPM-4 of 7 elevated fasting blood sugars. Advised to watch diet, eat bedtime snack, and avoid fasting longer than 8 to 10 hours. Will review again next week. 05/01/2024-RPM-2 of 7 elevated fasting blood sugars and 3 of 6 elevated post prandial dinner values. Advised to watch diet and will follow up next week. Assessment & Plan (04/26/2024 12:18 [...] Recommend nutrition consult with RDN (Registered Dietitian Speech Assistant). Lifestyle changes are also indicated including optimizing [...] and she has an appt with the software systems engineer as well. We reviewed that additional u/s and surveillance will be needed it GDMA2 develops; encouraged follow up with [facility] in case sugars do increase and medication is required. Questions answered. Low risk NIPT appreciated. Supervision of high-risk , [facility] 12/28/2023 Overview (04/16/2024): Estimated Date of [...] as of this encounter (statuses as of 05/03/2024) Resolved Problems Problem Noted Date Diagnosed Date Resolved Date Low-lying placenta 02/18/2024 Overview (02/18/2024): Has follow up ultrasound scheduled. Advised no heavy lifting and no sexual intercourse. Declines Maternal Medicine referral. Assessment & Plan (03/01/2024 10:29 AM EST): Resolved. Migraine 12/23/2022 documented as of this encounter (statuses as of 05/03/2024) Immunizations Name Administration Dates Next Due COVID-19 mRNA, LNP-s, No Pre serve, 2-Dose Series ([employer]) 11/21/2020,10/31/2020 HEPATITIS B VACCINE, RECOMB, 20 MCG/ML, ADULT (HEPLISAV-B) 04/08/2023,03/04/2023 Pneumococcal Conjugate Vacci ne, 20-valent ([id number]) 12/23/2022 RSV Vac., Bivalent, Perfusio n F, [...] money to get more. 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 No regular ctx, LOF, bleeding. Notes increase in physiologic discharge. Working with [facility]. Normal growth with MFM last week. Reviewed [facility] and labor signs. Return in 1 week for NST/ALLA. DEBRA Solorzano ASSESSMENT assessment with Non-stress Test completed on 05/03/2024 at 38.6 weeks gestation for indicationof class 2 obesity heart baseline: 130 bpm Variability: Moderate Decelerations: absent Accelerations: present Contractions: None NST start time: 911 NST stop time: 950 NST strip reviewed, interpreted, and approved by OB provider, DEBRA Solorzano . NST strip stored in clinic storage file documented in this encounter Plan of Treatment Upcoming Encounters Date Type Department Care Team (Late st Contact Info) Description 05/09/2024 1:15 PM EST Office Visit Gynecology/Obstetrics [facility] [address] [place] [address] Magda Latif CRNP [address] [place] [address] Ted, Non Stress Tests Paula [address] [place] [address] Health Maintenance Due Date Last Done Comments [...] ultrasonics 37 weeks gestation of state, incidental Supervision of high-risk , third trimester- Primary Rh negative, antepartum [place] isoimmunization affecting management of mother, antepartum condition Obesity in , antepartum Obesity complicating , childbirth, or the puerperium, antepartum condition or complication Nausea and vomiting during Constipation during , antepartum Diet controlled gestational diabetes mellitus (GDM) in third trimester documented in this encounter Care Teams Seamless Tube Drawer Relationship Specialty Start Date End Date Sheila Hinton CRNP [address] [place] [address] PCP - General Nurse Practitioner 12/23/22 documented as of this encounter
--- OUTSIDE RECORDS SUMMARY | 2024-05-09 03:48 | External Medical Summary | Summary of Care ---
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 / Nutrition Services Diagnoses Gestational diabetes mellitus (GDM) in third trimester, gestational diabetes method of control unspecified Sasha Lima PA-C [address] [place] [address] Phone: tel: fax: Referral ID Status Reason Start Date Expiration Date Visits Requested Visits Authorized [id number] Authorized Specialty Services Required 02/24/2024 02/26/[id number] Encounter Details Date Type Department Care Team (Late st Contact Info) Description 03/28/2024 3:00 PM EST Telemedicine Virtual, Nutrition Services [address] [place] [address] Melquiades Parra, LILLY [address] [place] [address] [place] [id number] Gestational diabetes mellitus (GDM) in third trimester, gestational diabetes method of control unspecified* Allergies No known active allergiesdocumented as of this encounter (statuses as of 04/12/2024) Medications ALBUTEROL 90 MCG/ACT IN AERS 2 [...] mouth daily. 90 Tablet 2 4 Active [employer] Verio In Vitro Strip (Glucose Blood)Indication s:Gestational diabetes mellitus (GDM) in third trimester, gestational diabetes method of control unspecified Test blood sugars 4 times a day (fasting and 1 hour after breakfast, lunch, and dinner). 125 Strip 3 4 Active OcscTouch Verio w/Device KitIndications:G estational diabetes mellitus (GDM) [...] as of this encounter (statuses as of 04/12/2024) Active Problems Problem Noted Date Diagnosed Date [...] continue diet controlled 03/13/24: RPM reviewed; stable 03/20/20248986-OFV-hxdvuci stable (< 50% elevated) 03/27/2024-RPM-2 of 8 elevated fasting blood sugars, 3 of 8 elevated post prandial breakfast, 1 elevated post prandial lunch, and 3 of 7 elevated post prandial dinner. Advised to watch diet, eat bedtime snack, and avoid fasting longer than 8 to 10 hours. Will review again next week. 04/03/20247038-RDJ-zsiuhq (1 elevated post prandial breakfast and 1 post prandial dinner) 04/11/20246678-UXX-mdocarz stable (< 50% elevated) Assessment & Plan [...] Recommend nutrition consult with RDN (Registered Dietitian Medical Front Desk Coordinator). Lifestyle changes are also indicated including optimizing [...] and she has an appt with the color room attendant as well. We reviewed that additional u/s and surveillance will be needed it GDMA2 develops; encouraged follow up with [facility] in case sugars do increase and medication is required. Questions answered. Low risk NIPT appreciated. Supervision of high-risk , calvin trujillo 12/28/2023 Overview (03/18/2024): Estimated Date of Delivery: 05/11/24 Continue vitamin. O negative - Rhogam given on 02/16/2024. Rubella and varicella immune. Qnatal testing low risk. S/p anatomy ultrasound. Has GDM. S/p CBC - normal. No anemia. Tdap vaccine completed. GBS culture at 36 weeks. RSV vaccine at 32 to 36 weeks - desires NEXT appointment. Completed influenza vaccine. Constipation during , antepartum 2023 Overview (02/18/2024): [...] as of this encounter (statuses as of 04/12/2024) Resolved Problems Problem Noted Date Diagnosed Date Resolved Date Low-lying placenta 02/18/2024 Overview (02/18/2024): Has follow up ultrasound scheduled. Advised no heavy lifting and no sexual intercourse. Declines Maternal Medicine referral. Assessment & Plan (03/01/2024 10:29 AM EST): Resolved. Migraine 12/23/2022 documented as of this encounter (statuses as of 04/12/2024) Immunizations Name Administration Dates Next Due COVID-19 mRNA, LNP-s, No Pre serve, 2-Dose Series ([employer]) 11/21/2020,10/31/2020 HEPATITIS B VACCINE, RECOMB, 20 MCG/ML, ADULT (HEPLISAV-B) 04/08/2023,03/04/2023 Pneumococcal Conjugate Vacci ne, 20-valent (Ymvdeqj16) 12/23/2022 RSV Vac., Bivalent, Perfusio n F, [...] money to get more. 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 Not on file Not on file Not on michael e documented as of this encounter Patient Instructions * Patient Instructions* Melquiades Parra RDN - 03/28/2024 4:01 PM EST Nutrition: To improve blood glucose control I will follow meal plan of Breakfast: 15-30 grams carbohydrate Snack: 15-30 grams carbohydrate Lunch: 30-60 grams carbohydrate Snack: 15-30 grams carbohydrate Dinner: 30-60 grams carbohydrate Bedtime snack: 15-30 grams carbohydrate documented in this encounter Progress Notes * Melquiades Parra RDN - 03/28/2024 3:00 PM EST DIABETES SELF-MANAGEMENT TRAINING Gestational Diabetes Group Session Date: 03/28/2024 Patient location: HOME. I was in a hospital or clinic location. After connecting through [employer],patient was verified with two unique identifiers. Patient (or authorized legal nutrition representative) was then informed that this was a Telemedicine visit and being conducted confidentially over secure lines. Methods to assure confidentiality were taken. Patient acknowledged consent and understanding of pr ivacy and security of the Telemedicine visit. The patient agreed to participate. ADA referral in place? Yes What diabetes concerns and/or barriers to care would you like to discuss in your appointment: Diabetes with gestational diabetes. Here for education. What is gestational diabetes? What are the risks to me and my baby? When do I test my blood sugar? Will I need medication for gestational diabetes? What diet do I follow for gestational diabetes? What does exercise do to my blood sugar? Will this go away for me and the baby? What type of diabetes to you have? Gestational Diabetes DSMT Initial Visit Assessment of Content Areas: Choose the answer that represents the participant's competency in each area. All need to be assessed at initial. Areas taught must match intervention. If content area not assessed and/or intervened today, it will be deferred to future session. Diabetes disease process and treatment process: Needs instruction (1) Incorporating nutrition management into lifestyle: Needs instruction (1) Incorporating physical activity into lifestyle: Needs instruction (1) Using medications safely: Needs instruction (1) Monitoring blood glucose, interpreting and using results: Needs instruction (1) Prevention, detection, and treatment of acute complications: Needs instruction (1) Prevention, detection, and treatment of chronic complications: Needs instruction (1) Developing strategies to address psychosocial issues: Needs instruction (1) Developing strategies to promote health/change behavior: Needs instruction (1) Nutrition Diagnosis: Food and Nutrition Related Knowledge Deficit related to limited prior nutrition- related education as evidenced by referral to be seen for gestational diabetes and enrolled in group session for education. DSMT/ Diabetes MNT intervention: Pathophysiology: Defined disease process. Defined and discussed role of insulin resistance. Nutrition: GDM nutrition: Educated on rationale and guidelines of nutritional management of GDM. Emphasis on need for carbohydrate control/consistency with structured meal schedule. Taught participant how to read a food label. Importance of also meeting nutritional needs of reinforced. Stressed importance of avoiding sugar sweetened beverages, fruit juices. Encouraged bedtime snack 8-10 hours before fasting test the next day. Recommended starting meal pattern provided = Breakfast: 15-30 grams carbohydrate Snack: 15-30 grams carbohydrate Lunch: 30-60 grams carbohydrate Snack: 15-30 grams carbohydrate Dinner: 30-60 grams carbohydrate Bedtime snack: 15-30 grams carbohydrate Educated on using the plate method as a guide for balancing meals during Educated on nutrition related items affecting such as calcium, fish, caffeine, herbal supplements, and preventing listeria. Encouraged prenatals with folic acid, potassium iodide, and DHA/EPA. Physical Activity: Educated on the role of physical activity on glucose control. Educated on the options for physical activity given participant's diabetes complications or other health issues. Medication: Reviewed that due to hormonal insulin resistance in , there may be a need for medication to achieve blood glucose levels in target. Monitoring: blood glucose and targets: Educated on blood glucose monitoring and recommended testing times of fasting and 1-OR 2-hour post meals with targets of less than 95 fasting, 1-hour post meal ofless than 140 OR 2-hour post meal of less than 120. Encouraged logging blood glucoses and reported readings to care team. Provided troubleshooting trick/tips for Current Health Mili (Maternal Medicine) Educated on ways to improve fasting glucose levels Chronic Complications: Educated on the risks of uncontrolled blood glucose during and post for mom and /. Promote health/Change behavior: Reviewed importance of glucose screening after having gestational diabetes. Participant Selected Behavioral Objective: Nutrition: To improve blood glucose control I will follow meal plan of Breakfast: 15-30 grams carbohydrate Snack: 15-30 grams carbohydrate Lunch: 30-60 grams carbohydrate Snack: 15-30 grams carbohydrate Dinner: 30-60 grams carbohydrate Bedtime snack: 15-30 grams carbohydrate Education materials given to participant/caregiver and reviewed during today's visit: Vaishali Materials: What is Gestational Diabetes? Healthy Meals for Diabetes Possible Future Topics: Content areas that were not assessed in first visit: Acute complications Psychosocial/healthy coping Time Spent With Patient: Time in: 300 Time out: 349 Billing: MNT: 2 units This visit was completed as a virtual group session. Plan for Return: 2-4 week return Participant provided with contact information for Diabetes Care and People Manager. All [facility] providers within the system are able to see ADA education and outcomes within the participant electronic medical record. Melquiades Parra RDN, NUTRITION SERVICES VIRTUAL Diabetes Care and People Manager documented in this encounter Miscellaneous Notes * Addendum Note - Melquiades Parra RDN - 04/12/2024 3:06 PM ESTAddended by: MELQUIADES PARRA on: 04/12/2024 03:06 PM Modules accepted: Level of Service * Pt Handout (on AVS) - Melquiades Parra RDN - 03/28/2024 4:01 PM EST Images from the original note were not included. [id number] What Is Gestational Diabetes? Gestational diabetes is a type of diabetes that happens during . Unlike type 1 diabetes, gestational diabetes is not caused by having too little insulin. Instead, hormones made by your placenta keep your body from using insulin as it should. This is called insulin resistance. Blood sugar (glucose) then builds up in your blood instead of being absorbed by the cells in your body and used for energy. This can cause high blood sugar and can cause problems for both you and your baby. You can take steps to control your blood sugar. This will help reduce the risks for you and your baby. Managing gestational diabetes You need to control your blood sugar while you are . Your healthcare team will help you make a plan to do this. This plan will include: Eating the right foods. This is the main way to control your blood sugar. You need to eat a variety of healthy foods each day. To help you plan changes in your diet, you will likely work with a registered dietitian (GARRISON). This is an expert on food and nutrition. The dietitian may have you take part in a nutrition program to help you reach your goals. Getting exercise. Your body uses more blood sugar when you exercise. Your healthcare team can help you pick the best kinds of exercise for you. Checking your blood sugar. You will likely need to check your blood sugar at home. You will do this 2 or more times a day. You will likely check your fasting blood sugar and after meal (postprandial) blood sugar. Your healthcare team will teach you how. They will talk with you about your blood sugar goals. Your blood sugar may also be tested every week or so at a clinic. If your blood sugar stays too high, you may need to have insulin shots during your . Risks to your baby If your blood sugar stays high, your baby is at risk for these problems: Your baby may grow too large. If your blood sugar stays too high, your baby may grow too large. This is called macrosomia. This means a baby is too big for a safe vaginal . A large baby may get their shoulder stuck behind the pubic bone during . This is called shoulder dystocia. The baby's arms and shoulders could be injured. This may cause permanent arm damage. The baby may also have low oxygen levels (hypoxia) while they are stuck. Hypoxia can lead to cerebral palsy. In rare cases, it can lead to . Your baby?s organs may not be fully grown at . If you have diabetes, your baby may need to be delivered early. This may be because of problems with the . Or it may be because of risks to you or your baby. If your baby is delivered early, their lungs may not work well. This is called respiratory distress syndrome. Your baby's liver also may not work normally. And your baby may have yellow color in their skin and eyes (jaundice) after . Your baby?s blood sugar may be low after . If your blood sugar is too high, your baby makesextra insulin. The baby will keep making extra insulin right after . Your baby may need to be treated for low blood sugar. Your baby could be stillborn. This is very rare. But your baby could before if your blood sugar stays high for too long. Risks to you If you don?t control your blood sugar, you are more likely to have: High blood pressure. High blood sugar makes you more likely to have high blood pressure during your . This is a danger to your health. It could lead to early delivery for your baby. Infections. High blood sugar makes you more likely to have bladder, kidney, and vaginal infections. Trouble breathing. You may feel short of breath. High blood sugar can cause too much fluid around the baby. This is called polyhydramnios. Your abdomen gets big and pushes up on your lungs. Difficult labor. Your delivery may be harder. And your recovery may take longer. If your blood sugar stays too high, your baby may grow too large. A large baby might cause injury to you during . Or the baby may have to be delivered by section (). This means making a cut (incision) in your abdomen and uterus. A is a common risk of gestational diabetes. Reduce your future risk for type 2 diabetes Women who have gestational diabetes are at higher risk of type 2 diabetes later. You are also at higher risk for gestational diabetes in your next . You can help reduce your risk in these ways: Lose excess weight. Be as active as you can. Eat more fruits and vegetables. Eat fewer processed foods. Get regular blood tests to check for diabetes. Breastfeed your baby. Who is at risk for gestational diabetes? You're more at risk if you: Are overweight Have a family history of diabetes Have had a baby who before Had gestational diabetes in the past Are , , , South or East , or How daily issues affect your health Many things in your daily life impact your health. This can include transportation, money problems,housing, access to food, and childcare. If you can?t get to medical appointments, you may not receive the care you need. When money is tight, it may be difficult to pay for medicines. And living far from a grocery store can make it hard to buy healthy food. If you have concerns in any of these or other areas, talk with your healthcare team. They may know of local resources to assist you. Or they may have a staff person who can help. Last Reviewed Date: 2022 00:00:00 [id number] [employer]. All rights reserved. This information is not intended as a substitute for professional medical care. Always follow your healthcare professional's instructions. * Pt Handout (on AVS) - Melquiades Parra RDN - 03/28/2024 4:01 PM EST Images from the original note were not included. [id number] Healthy Meals for Diabetes Figuring out what to eat can be one of the most confusing parts of diabetes. It will help you to have a meal plan. You can ask your healthcare team to help you make a meal plan that fits your needs. Your meal plan tells you when to eat your meals and snacks, what kinds of foods to eat, and how muchof each food to eat. You don?t have to give up all the foods you like but following some guidelines will set you up for success in managing your diabetes. A healthcare provider will help you develop a meal plan that fits your needs. Choose healthy carbohydrates Starches, sugars, and fiber are all types of carbohydrates (carbs). Carbs can get a bad reputation since they affect your blood sugar the most. It is important to remember that your body benefits from the right amount of healthy carbs. Fiber can help lower your cholesterol and triglycerides. Fiber is also healthy for your heart. You should have 20 to 35 grams of total fiber each day. Fiber comes from plants. Fiber-rich foods include: Whole-grain breads and cereals Nuts Brown rice and quinoa Whole-wheat pasta Fruits and vegetables Beans and peas Keep track of the amount of carbs you eat. This can help you keep the right balance of physical activity and medicine. The amount of carbs needed will vary for each person. It depends on many things such as your health, the medicines you take, and how active you are. Your healthcare team will help you figure out the right amount of carbs for you. You may start with around 45 to 60 grams of carbs per meal, depending on your needs. Here are some examples of foods that have about 15 grams of carbs (1 serving of carbs): 1/2 cup of canned or frozen fruit A small piece of fresh fruit (4 ounces) 1 slice of bread 1/2 cup of oatmeal 1/3 cup of rice 4 to 6 crackers 1/2 Telugu muffin 1/2 cup of black beans 1/4 of a large baked potato (3 ounces) 2/3 cup of plain fat-free yogurt 1 cup of soup 1/2 cup of casserole 6 chicken nuggets [id number] brownie or cake without frosting 2 small cookies 1/2 cup of ice cream or sherbet Choose healthy protein foods Proteins play a storey role in building healthy muscles, bones, skin, and many other parts of your body. Eating protein that's low in fat can help you control your weight. It also helps keep your heart healthy. Low-fat protein foods include: Fish Plant proteins, such as lentils, beans, peas, nuts, and soy products like tofu and soymilk Lean meat with all visible fat removed Poultry with the skin removed Low-fat or nonfat milk, cheese, and yogurt Limit unhealthy fats and sugar Saturated and trans fats are unhealthy for your heart. They raise LDL (bad) cholesterol. Fat is also high in calories. To cut down on unhealthy fats and sugar, limit these foods: Butter or margarine Palm and palm kernel oils and coconut oil Cream Cheese Ashley Lunch meats Ice cream Sweet bakery goods such as pies, muffins, and donuts Jams and jellies Candy bars Regular sodas How much to eat The amount of food you eat affects your blood sugar. It also affects your weight. Your healthcare team will tell you how much of each type of food you should eat. Use measuring cups and spoons and a food scale to measure serving sizes. Learn what a correct serving size looks like on your plate. This will help when you're away fromhome and can?t measure your servings. For instance, a serving of meat is about the size of the palmof your hand. Eat only the number of servings given on your meal plan for each food. Don?t take seconds. Learn to read food labels. Be sure to look at serving size, total carbohydrates, fiber, calories, sugar, salt, and saturated and trans fats. Look for healthier options such as foods with no added sugar or salt. Plan ahead for parties. Then you can still have a good time without diving into unhealthy food choices. Bring a healthy dish to [employer]. Choose healthy snacks When it comes to snacks, we often think about foods with added sugar and fats. But there are many other options for healthier snack choices. Here are a few snack ideas to choose from: Snacks with less than 5 grams of carbohydrates 1 piece of string cheese 3 celery sticks plus 1 tablespoon of peanut butter 5 parada tomatoes plus 1 tablespoon of ranch dressing 1 hard-boiled egg 1/4 cup of fresh blueberries 5 baby carrots 1 cup of light popcorn 1/2 cup of sugar-free gelatin 15 almonds Snacks with about 10 to 20 grams of carbohydrates 1/3 cup of hummus plus 1 cup of fresh cut non-starchy vegetables (carrots, green peppers, broccoli, celery, or a mix) 1/2 cup of fresh or canned fruit plus 1/4 cup of cottage cheese 1/2 cup of tuna salad with 4 crackers 2 rice cakes and a tablespoon of peanut butter 1 small apple or orange 3 cups light popcorn 1/2 of a turkey sandwich (1 slice of whole-wheat bread, 2 ounces of turkey, and mustard) Portion sizes are important for controlling your blood sugar and staying at a healthy weight. Stockup on healthy snack foods so you always have them on hand. When to eat Your meal plan will likely include breakfast, lunch, dinner, and some snacks. Try to eat your meals and snacks at about the same times each day. Eat all your meals and snacks. Skipping a meal or snack can make your blood sugar drop too low. It can also cause you to eat too much at the next meal or snack. Then your blood sugar could get toohigh. Be patient It can be stressful trying to figure out what to eat. But over time, you?ll form new habits around your meal plan and healthy guidelines. Then eating right for your blood sugar will be much easier. Last Reviewed Date: 2023 00:00:00 [id number] [employer]. All rights reserved. This information is not intended as a substitute for professional medical care. Always follow your healthcare professional's instructions. documented in this encounter Plan of Treatment Upcoming Encounters Date Type Department Care Team (Late st Contact Info) Description 04/19/2024 1:45 PM EST Office Visit Gynecology/Obstetrics [facility] [address] [place] [id number] [place], DEBRA Townsend [address] [place] [id number] 04/26/2024 11:00 AM EST Imaging Radiology, [facility] [address] [place] [address] 04/26/2024 1:45 PM EST Office Visit Gynecology/Obstetics [facility] [address] [place] [phone] Sasha Lima PA-C [address] [place] [address] 04/27/2024 2:30 PM EST Telemedicine Nutrition Services [address] [place] [address] Michael Goddard, LILLY [address] [place] [address] 05/10/2024 1:45 PM EST [facility] [phone] Sasha Lima PA-C [address] [place] [address] 05/17/2024 1:45 PM EST Office Visit Gynecology/Obstetics [facility] [address] [place] [phone] Sasha Lima PA-C [address] [place] [address] Scheduled Referrals Name Type Priority Associated Diagnoses Orde r Schedule DIABETES MANAGEMENT EDUCATION (ADA) REFERRAL Referral Within 3 days (urgent) Gestational diabetes mellitus (GDM) in third trimester, gestational diabetes method of control unspecified Ordered: 02/24/2024 Health Maintenance Due Date Last Done Comments [...] or the puerperium, antepartum condition or complication Gestational diabetes mellitus (GDM) in third trimester, gestational diabetes method of control unspecified- Primary documented in this encounter Care Teams Cover Stripper Relationship Specialty Start Date End Date Sheila Hinton CRNP [address] [place] [id number] PCP - General Nurse Practitioner 12/23/22 documented as of this encounter
--- OUTSIDE RECORDS SUMMARY | 2024-05-09 03:49 | External Medical Summary | Summary of Care ---
Author Name Unknown Organization [facility] Address [address] [place] [address] Phone [phone] Care Team Providers Care Financial Aid Name Role Phone Sheila Hinton DEBRA Primary Care Provider [phone] Reason for Visit * Reason Comments Return Visit Encounter Details Date Type Department Care Team (Late st Contact Info) Description 03/29/2024 1:45 PM EST Office Visit Gynecology/Obstetics [facility] [address] [place] [phone] Sasha Lima PA-C [address] [place] [address] Supervision of high-risk , third trimester*; Rh negative, antepartum; Diet controlled gestational diabetes mellitus (GDM) in third trimester; Obesity in , antepartum; Constipation during , antepartum Allergies No known active allergiesdocumented as of this encounter (statuses as of 04/02/2024) Medications ALBUTEROL 90 MCG/ACT IN AERS 2 puffs every 4 hrs. as needed for cough, wheeze, chest tightness or shortness of breath and prior exercise 1 6 07/18/20 06 Active 27-0.8 MG Oral Tablet Take 1 Tablet by mouth daily at noon. Active Vitamin B-6 25 MG Oral TabletIndications :Nausea and vomiting during Take 1 Tablet by mouth every 6 hours as needed for Nausea. 120 Tablet 1 10/12/19 Active Additional Information Patient not taking.Reported on 03/06/2024 Docusate Sodium 100 MG Oral Capsule (Colace)Indicatio ns:Constipation during , antepartum Take 1 Capsule by mouth daily as needed for Constipation. 30 Capsule 2 10/12/19 24 Active Triamcinolone Acetonide 0.1 % External Ointment (Aristocort) Apply topically to affected area 2 times a day. To affected area. 15 g 1 10/12/19 Active Additional Information Patient not taking.Reported on 03/06/2024 Doxylamine Succinate (Sleep) 25 MG Oral Tablet (Unisom)Indicatio ns:Nausea and vomiting during Take 0.5 Tablets by mouth at bedtime as needed for Nausea. 30 Tablet 1 10/14/19 Active Additional Information Patient not taking.Reported on 03/06/2024 Aspirin 81 MG Oral Tablet ChewableIndicatio ns:Supervision of high-risk , second trimester Take 1 Tablet by mouth daily. 90 Tablet 2 12/22/19 Active [employer]Touch Verio In Vitro Strip (Glucose Blood)Indications :Gestational diabetes mellitus (GDM) in third trimester, gestational diabetes method of control unspecified Test blood sugars 4 times a day (fasting and 1 hour after breakfast, lunch, and dinner). 125 Strip 3 02/24/20 Active OneTouch Verio w/Device KitIndications:Ge stational diabetes mellitus (GDM) in third trimester, gestational diabetes method of control unspecified Test blood sugars 4 times a day (fasting and 1 hour after breakfast, lunch, and dinner). 1 Kit 02/24/20 Active LancetsIndication s:Gestational diabetes mellitus (GDM) in third trimester, gestational diabetes method of control unspecified Test blood sugars 4 times a day (fasting and 1 hour after breakfast, lunch, and dinner). 125 Each 3 02/24/20 24 Active Abrysvo 120 MCG/0.5ML Intramuscular Solution Reconstituted (RSV Pre-Fusion F A&B Vac Rcmb)Indications: Supervision of high-risk , third trimester Inject 0.5 mL into a large muscle once for 1 dose. 1 Each 03/29/19 25 025 documented as of this encounter (statuses as of 04/02/2024) Active Problems Problem Noted Date Diagnosed Date Diet controlled gestational diabetes mellitus (GDM) in third trimester 03/01/2024 Overview (03/27/2024): Diagnosed at 28 weeks Nutrition referral ordered; [...] continue diet controlled 03/13/24: RPM reviewed; stable 03/20/20248432-GJH-apfxaao stable (< 50% elevated) 03/27/2024-RPM-2 of 8 [...] Recommend nutrition consult with RDN (Registered Dietitian Sales Operations Consultant). Lifestyle changes are also indicated including optimizing [...] and she has an appt with the band presser as well. We reviewed that additional u/s and surveillance will be needed it GDMA2 develops; encouraged follow up with [facility] in case sugars do increase and medication is required. Questions answered. Low risk NIPT appreciated. Supervision of high-risk , [facility] 12/28/2023 Overview (03/18/2024): Estimated Date of Delivery: [...] as of this encounter (statuses as of 04/02/2024) Resolved Problems Problem Noted Date Diagnosed Date Resolved Date Low-lying placenta 02/18/2024 Overview (02/18/2024): Has follow up ultrasound scheduled. Advised no heavy lifting and no sexual intercourse. Declines Maternal Medicine referral. Assessment & Plan (03/01/2024 10:29 AM EST): Resolved. Migraine 12/23/2022 documented as of this encounter (statuses as of 04/02/2024) Immunizations Name Administration Dates Next Due COVID-19 mRNA, LNP-s, No Pre serve, 2-Dose Series ([employer]) 11/21/2020,10/31/2020 HEPATITIS B VACCINE, RECOMB, 20 MCG/ML, ADULT (HEPLISAV-B) 04/08/2023,03/04/2023 Pneumococcal Conjugate Vacci ne, 20-valent ([id number]) 12/23/2022 Seasonal Influenza Vac, Quad , Cell culture, [...] money to get more. 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 BP 128/74 | Wt 115.6 kg (254 lb 12.8 oz) | LMP 08/05/2023 (Exact Date) | BMI 42.45 kg/m | BSA 2.3m Doing well. Denies vaginal bleeding, leaking of fluid, vaginal pressure, abdominal pain, or abnormal vaginal discharge. Denies headaches, blurry vision, or right upper quadrant pain. Patient states she feels good movement. Patient reports that blood sugars are well controlled with diet. Patient has intermittent raisa ly contractions - not often. Patient had a headache today, but resolved with rest. Patient denies headaches typically. Physical Exam General: alert and oriented, no acute distress Pulmonary: normal respiratory effort, no accessory muscle use. Abdomen: gravid, soft, non-tender heart rate: 140's bpm OB [facility] Problems (from 09/24/23 to present) Problem Noted [...] continue diet controlled 03/13/24: RPM reviewed; stable 03/20/20247633-UTH-jogfasy stable (< 50% elevated) 03/27/2024-RPM-2 of 8 elevated fasting blood sugars, 3 of 8 elevated post prandial breakfast, 1 elevated post prandial lunch, and 3 of 7 elevated post prandial dinner. Advised to watch diet, eat bedtime snack, and avoid fasting longer than 8 to 10 hours. Will review again next week. Supervision of high-risk , third trimester 12/28/2023 by Sasha Lima PA-C No Estimated Date of Delivery: 05/11/24 Continue vitamin. O negative - Rhogam given on 02/16/2024. Rubella and varicella immune. Qnatal testing low risk. S/p anatomy ultrasound. Has GDM. S/p CBC - normal. No anemia. Tdap vaccine completed. GBS culture at 36 weeks. RSV vaccine - ordered. Completed influenza vaccine. Constipation during , antepartum 10/16/2023 by Sasha Lima PA-C No Has Colace for constipation. May use Miralax as needed. Rh negative, antepartum 10/12/2023 by Sasha Lima PA-C No Rhogam given 02/16/2024. Obesity in , antepartum 10/12/2023 by Sasha Lima PA-C No Pre-gravid BMI 39.15. Class 2 Plan: -Rhogam injection and Tdap vaccine completed. -RSV vaccine ordered. -Blood sugars well controlled with diet. -NSTs weekly at 37 weeks. Counseled patient to call triage/go to labor and delivery if she has any vaginal bleeding, leaking of fluid, vaginal pressure, 6 or more painful contractions in an hour, abdominal pain, decreased movements, headaches, blurry vision, or right upper quadrant pain. Patient verbalized understanding. RTO in 2 weeks for return appointment or sooner if any concerns. Sasha Larson PA-C documented in this encounter Nursing Notes * Elli Reza CMA - 03/29/2024 1:47 PM EST Routine OB check. Denies questions or complaints. documented in this encounter Plan of Treatment Upcoming Encounters Date Type Department Care Team (Late st Contact Info) Description 04/12/2024 1:45 PM EST Office Visit Gynecology/Obstetics [facility] [address] [place] [phone] Sasha Lima PA-C [address] [place] [address] 04/19/2024 1:45 PM EST Office Visit Gynecology/Obstetrics [facility] [address] [place] [address] Magda Latif CRNP [address] [facility] [address] 04/26/2024 11:00 AM EST Imaging Radiology, [facility] [address] [place] [address] 04/26/2024 1:45 PM EST Office Visit Gynecology/Obstetics [facility] [address] [place] [address] Sasha Lima PA-C [address] [place] [address] 04/27/2024 2:30 PM EST Telemedicine Nutrition Services [address] [place] [address] Michael Goddard, N [address] [place] [phone] 05/10/2024 1:45 PM EST Office Visit Gynecology/Obstetics [facility] [address] [place] [phone] Sasha Lima PA-C [address] [place], [place] [phone] 05/17/2024 1:45 PM EST Office Visit Gynecology/Obstetics [facility] [address] [facility] [place] [phone] Sasha Lima PA-C [address] [place] [address] Health Maintenance Due Date Last Done Comments [...] or the puerperium, antepartum condition or complication Constipation during , antepartum documented in this encounter Care Teams Financial Aid Relationship Specialty Start Date End Date Sheila Hinton CRNP [address] [place] [address] PCP - General Nurse Practitioner 12/23/22 documented as of this encounter"
--- OUTSIDE RECORDS SUMMARY | 2024-05-09 03:49 | External Medical Summary | Summary of Care ---
Author Name Unknown Organization [facility] Address [address] [place] [address] Phone [phone] Care Team Providers Care Licensed Massage Practitioner Name Role Phone Sheila Hinton DEBRA Primary Care Provider Encounter Details Date Type Department Care Team (Late st Contact Info) Description 03/29/2024 11:45 AM EST Office Visit Board Handler Obstetrics Maternal Medicine, [address] [address] Inna Muro, DO [address] [place] [address] Obesity in , antepartum*; Diet controlled gestational diabetes mellitus (GDM) in third trimester; Ultrasound for screening for growth restriction; with 33 completed weeks gestation Allergies No known active allergiesdocumented as of this encounter (statuses as of 03/29/2024) Medications ALBUTEROL 90 MCG/ACT IN AERS 2 [...] mouth daily. 90 Tablet 2 4 Active [employer] Verio In Vitro Strip (Glucose Blood)Indication s:Gestational diabetes mellitus (GDM) in third trimester, gestational diabetes method of control unspecified Test blood sugars 4 times a day (fasting and 1 hour after breakfast, lunch, and dinner). 125 Strip 3 4 Active [employer] Verio w/Device KitIndications:G estational diabetes mellitus (GDM) [...] as of this encounter (statuses as of 03/29/2024) Active Problems Problem Noted Date Diagnosed Date [...] continue diet controlled 03/13/24: RPM reviewed; stable 03/20/20240455-UIM-zjajwso stable (< 50% elevated) 03/27/2024-RPM-2 of 8 [...] Recommend nutrition consult with RDN (Registered Dietitian Soubrette). Lifestyle changes are also indicated including optimizing [...] and she has an appt with the buttonhole tacker as well. We reviewed that additional u/s and surveillance will be needed it GDMA2 develops; encouraged follow up with [facility] in case sugars do increase and medication is required. Questions answered. Low risk NIPT appreciated. Supervision of high-risk , third ltac, [facility] 12/28/2023 Overview (03/18/2024): Estimated Date of Delivery: [...] as of this encounter (statuses as of 03/29/2024) Resolved Problems Problem Noted Date Diagnosed Date Resolved Date Low-lying placenta 02/18/2024 Overview (02/18/2024): Has follow up ultrasound scheduled. Advised no heavy lifting and no sexual intercourse. Declines Maternal Medicine referral. Assessment & Plan (03/01/2024 10:29 AM EST): Resolved. Migraine 12/23/2022 documented as of this encounter (statuses as of 03/29/2024) Immunizations Name Administration Dates Next Due COVID-19 mRNA, LNP-s, No Pre serve, 2-Dose Series ([employer]) 11/21/2020,10/31/2020 HEPATITIS B VACCINE, RECOMB, 20 MCG/ML, ADULT (HEPLISAV-B) 04/08/2023,03/04/2023 Pneumococcal Conjugate Vacci ne, 20-valent ([id number]) 12/23/2022 Seasonal Influenza Vac, Quad , Cell [...] money to get more. 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 No evidence of structural abnormalities noted today, however some structures remain suboptimal as above. Normal interval growth with EFW 2383 g at 55%. Normal SUJATA. Cephalic presentation. I reviewed the ultrasound images. Sharee was given the opportunity to meet with me if she had any questions. Please refer to the ultrasound report for additional details about today's ultrasound examination. RECOMMENDATIONS: Recommend follow up ultrasound with MFM in 4-6 weeks for growth secondary to above indications. See prior formal MFM consultation note. Thank you for allowing us to participate in the care of this patient. Please call with any questions. Inna Muro DO 03/29/2024 3:17 PM documented in this encounter Plan of Treatment Upcoming Encounters Date Type Department Care Team (Late st Contact Info) Description 04/12/2024 1:45 PM EST Office Visit Gynecology/Obstetics [place] [address] [facility] [place] [phone] Sasha Lima PA-C [address] [facility] [place] [address] 04/19/2024 1:45 PM EST Office Visit Gynecology/Obstetrics [facility] [address] [facility] [place] [address] BackerMagda CRNP [address] [place] [address] 04/26/2024 11:00 AM EST Imaging Radiology, [facility] [address] [place] [address] 04/26/2024 1:45 PM EST Office Visit Gynecology/Obstetics [place] [address] [facility] [place] [phone] Sasha Lima PA-C [address] [facility] [address] 04/27/2024 2:30 PM EST Telemedicine Nutrition Services [address] [place] [address] Michael Goddard, RDN [facility] [facility] [place] [address] 05/10/2024 1:45 PM EST Office Visit Gynecology/Obstetics [place] [address] [facility] [place] [phone] Sasha Lima PA-C [address] [place] [address] 05/17/2024 1:45 PM EST Office Visit Gynecology/Obstetics [facility] [address] [place] [phone] Sasha Lima PA-C [address] [place] [address] Health Maintenance Due Date Last Done Comments [...] restriction screening for growth retardation using ultrasonics with 33 completed weeks gestation documented in this encounter Care Teams Licensed Massage Practitioner Relationship Specialty Start Date End Date Sheila Hinton CRNP [address] [facility] [place] [address] PCP - General Nurse Practitioner 12/23/22 documented as of this encounter
--- OUTSIDE RECORDS SUMMARY | 2024-05-09 03:49 | External Medical Summary | Summary of Care ---
Author Name Unknown Organization [facility] Address [address] [place] [address] Phone [phone] Care Team Providers Care Child Center Assistant Name Role Phone Sheila Hinton DEBRA Primary Care Provider [phone] Reason for Visit * Reason Comments DSMT INITIAL * Evaluate & Treat - Unlimited Visits (Within 3 days (urgent)) - Authorized Specialty Diagnoses / Procedures Referred By Contac t Referred To Contact Wine Sales Representative / Nutrition Services Diagnoses Gestational diabetes mellitus (GDM) in third trimester, gestational diabetes method of control unspecified Sasha Lima PA-C [address] [place] [address] Phone: tel: fax: Referral ID Status Reason Start Date Expiration Date Visits Requested Visits Authorized [id number] Authorized Specialty Services Required 02/24/2024 02/26/[phone] Encounter Details Date Type Department Care Team (Late st Contact Info) Description 03/28/2024 3:00 PM EST Telemedicine Virtual, Nutrition Services [address] [place] [address] Mirna Parra, LILLY [address] [place] [address] [place] [address] Gestational diabetes mellitus (GDM) in third trimester, gestational diabetes method of control unspecified* Allergies No known active allergiesdocumented as of this encounter (statuses as of 03/28/2024) Medications ALBUTEROL 90 MCG/ACT IN AERS 2 [...] mouth daily. 90 Tablet 2 4 Active [employer] Verio In Vitro Strip (Glucose Blood)Indication s:Gestational diabetes mellitus (GDM) in third trimester, gestational diabetes method of control unspecified Test blood sugars 4 times a day (fasting and 1 hour after breakfast, lunch, and dinner). 125 Strip 3 4 Active DiscGen[employer]Touch Verio w/Device KitIndications:G estational diabetes mellitus (GDM) [...] as of this encounter (statuses as of 03/28/2024) Active Problems Problem Noted Date Diagnosed Date [...] continue diet controlled 03/13/24: RPM reviewed; stable 03/20/20240047-OAY-iwffmdi stable (< 50% elevated) 03/27/2024-RPM-2 of 8 [...] Recommend nutrition consult with RDN (Registered Dietitian Concert Promoter). Lifestyle changes are also indicated including optimizing [...] and she has an appt with the automation consultant as well. We reviewed that additional u/s and surveillance will be needed it GDMA2 develops; encouraged follow up with [facility] in case sugars do increase and medication is required. Questions answered. Low risk NIPT appreciated. Low-lying placenta 02/18/2024 Overview (02/18/2024): Has follow up ultrasound scheduled. Advised no heavy lifting and no sexual intercourse. Declines Maternal Medicine referral. Assessment & Plan (03/01/2024 10:29 AM EST): Resolved. Supervision of high-risk , third trimes ter 12/28/2023 Overview (03/18/2024): Estimated Date of Delivery: [...] as of this encounter (statuses as of 03/28/2024) Resolved Problems Problem Noted Date Diagnosed Date Resolved Date Migraine 12/23/2022 documented as of this encounter (statuses as of 03/28/2024) Immunizations Name Administration Dates Next Due COVID-19 mRNA, LNP-s, No Pre serve, 2-Dose Series ([employer]) 11/21/2020,10/31/2020 HEPATITIS B VACCINE, RECOMB, 20 MCG/ML, ADULT (HEPLISAV-B) 04/08/2023,03/04/2023 Pneumococcal Conjugate Vacci ne, 20-valent ([id number]) 12/23/2022 Seasonal Influenza Vac, Quad , Cell [...] money to get more. Never true 12/09/2023 Saxton Depression Scale Answer Date Recorded Sa[place] Depression Scale Total 5 03/16/2024 The thought [...] No 12/09/2023 Does the household have a [facility] source of income? 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 Not on file Not on michael e documented as of this encounter Patient Instructions * Patient Instructions* Mirna Parra RDN - 03/28/2024 4:01 PM EST Nutrition: To improve blood glucose control I will follow meal plan of Breakfast: 15-30 grams carbohydrate Snack: 15-30 grams carbohydrate Lunch: 30-60 grams carbohydrate Snack: 15-30 grams carbohydrate Dinner: 30-60 grams carbohydrate Bedtime snack: 15-30 grams carbohydrate documented in this encounter Progress Notes * Mirna Parra RDN - 03/28/2024 3:00 PM EST DIABETES SELF-MANAGEMENT TRAINING Gestational Diabetes Group Session Date: 03/28/2024 Patient location: HOME. I was in a hospital or clinic location. After connecting through [employer],patient was verified with two unique identifiers. Patient (or authorized legal volunteer patient representative) was then informed that this was [...] with contact information for Diabetes Care and Hot Box Operator. All [facility] providers within the system are able to see ADA education and outcomes within the participant electronic medical record. Mirna Parra RDN, NUTRITION SERVICES VIRTUAL Diabetes Care and Hot Box Operator documented in this encounter Miscellaneous Notes * Pt Handout (on AVS) - Mirna Parra RDN - 03/28/2024 4:01 PM EST Images from the original note were not included. [id number] What Is Gestational Diabetes? Gestational diabetes is [...] can help. Last Reviewed Date: 2022 00:00:00 [id number] [employer]. All rights reserved. This information is not intended as a substitute for professional medical care. Always follow your healthcare professional's instructions. * Pt Handout (on AVS) - Mirna Parra RDN - 03/28/2024 4:01 PM EST Images from the original note were not included. [id number] Healthy Meals for Diabetes Figuring out what [...] of rice 4 to 6 crackers 1/2 Yemeni muffin 1/2 cup of black beans 1/4 of a large baked potato (3 ounces) 2/3 cup of plain fat-free yogurt 1 cup of soup 1/2 cup of casserole 6 chicken nuggets 5-pwvr-fctpfd brownie or cake without frosting 2 small [...] plate. This will help when you're [facility] and can?t measure your servings. For instance, [...] food choices. Bring a healthy dish to [employer]. Choose healthy snacks When it comes to [...] much easier. Last Reviewed Date: 2023 00:00:00 [id number] [employer]. All rights reserved. This information is not intended as a substitute for professional medical care. Always follow your healthcare professional's instructions. documented in this encounter Plan of Treatment Upcoming Encounters Date Type Department Care Team (Late st Contact Info) Description 03/29/2024 11:45 AM EST [facility] [place] [address] [place] [address] 03/29/2024 11:45 AM EST Office Visit Public Interviewer Obstetrics Maternal Medicine, [place] [address] [place] [address] Inna Muro Adam Paulina, DO [address] [place] [address] 03/29/2024 1:45 PM EST Office Visit Gynecology/Obstetics [place] [address] [place] [phone] Sasha Lima PA-C [address] [place] [address] 04/12/2024 1:45 PM EST Office Visit Gynecology/Obstetics [place] [address] [place] [phone] Sasha Lima PA-C [address] [place] [address] 04/19/2024 1:45 PM EST Office Visit Gynecology/Obstetics [place] [address] [place] [phone] Sasha Lima PA-C [address] [place] [address] 04/26/2024 1:45 PM EST Office Visit Gynecology/Obstetics [place] [address] [place] [phone] Sasha Lima PA-C [address] [place] [address] 05/10/2024 1:45 PM EST Office Visit Gynecology/Obstetics [place] [address] [place] [phone] Sasha Lima PA-C [address] [place] [address] 05/17/2024 1:45 PM EST Office Visit Gynecology/Obstetics [place] [address] [place] [phone] Sasha Lima PA-C [address] [place] [address] Scheduled Referrals Name Type Priority Associated Diagnoses [...] Primary documented in this encounter Care Teams Child Center Assistant Relationship Specialty Start Date End Date Sheila Hinton CRNP [address] [place] [address] PCP - General Nurse Practitioner 12/23/22 documented as of this encounter
--- OUTSIDE RECORDS SUMMARY | 2024-05-09 03:49 | External Medical Summary | Summary of Care ---
Author Name Unknown Organization [facility] Address [address] [place] [address] Phone [phone] Care Team Providers Care Band Tacker Name Role Phone Sheila Hinton DEBRA Primary Care Provider [phone] Reason for Visit * Reason Onset Date Comments Med Request 03/29/2024 Encounter Details Date Type Department Care Team ([facility] st Contact Info) Description 03/29/2024 Telephone Gynecology/Obstetics [place] [address] [place] [address] Sasha Lima PA-C [address] [place] [address] Med Request Allergies No known active allergiesdocumented as of this encounter (statuses as of 04/01/2024) Medications ALBUTEROL 90 MCG/ACT IN AERS 2 [...] as of this encounter (statuses as of 04/01/2024) Active Problems Problem Noted Date Diagnosed Date [...] continue diet controlled 03/13/24: RPM reviewed; stable 03/20/20241028-XJJ-erwjowh stable (< 50% elevated) 03/27/2024-RPM-2 of 8 [...] Recommend nutrition consult with RDN (Registered Dietitian Sba Business Development Officer). Lifestyle changes are also indicated including optimizing [...] and she has an appt with the counterintelligence agent as well. We reviewed that additional u/s and surveillance will be needed it GDMA2 develops; encouraged follow up with [facility] in case sugars do increase and medication is required. Questions answered. Low risk NIPT appreciated. Supervision of high-risk , third [facility] 12/28/2023 Overview (03/18/2024): Estimated Date of Delivery: [...] as of this encounter (statuses as of 04/01/2024) Resolved Problems Problem Noted Date Diagnosed Date Resolved Date Low-lying placenta 02/18/2024 Overview (02/18/2024): Has follow up ultrasound scheduled. Advised no heavy lifting and no sexual intercourse. Declines Maternal Medicine referral. Assessment & Plan (03/01/2024 10:29 AM EST): Resolved. Migraine 12/23/2022 documented as of this encounter (statuses as of 04/01/2024) Immunizations Name Administration Dates Next Due COVID-19 mRNA, LNP-s, No Pre serve, 2-Dose Series ([employer]) 11/21/2020,10/31/2020 HEPATITIS B VACCINE, RECOMB, 20 MCG/ML, ADULT (HEPLISAV-B) 04/08/2023,03/04/2023 Pneumococcal Conjugate Vacci ne, 20-valent ([id number]) 12/23/2022 Seasonal Influenza Vac, Quad , Cell [...] money to get more. 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 documented in this encounter Plan of Treatment Upcoming Encounters Date Type Department Care Team (Late st Contact Info) Description 04/12/2024 1:45 PM EST Office Visit Gynecology/Obstetics [place] [address] [place] [phone] Sasha Lima PA-C [address] [facility] [address] 04/19/2024 1:45 PM EST [facility] [address] [facility] [place] [address] BackerMagda CRNP [address] [facility] [place] [address] 04/26/2024 11:00 AM EST Imaging Radiology, [facility] [address] [place] [address] 04/26/2024 1:45 PM EST Office Visit Gynecology/Obstetics [place] [address] [place] [address] Sasha Lima PA-C [address] [place] [address] 04/27/2024 2:30 PM EST Telemedicine Nutrition Services [address] [place] [address] Michael Goddard, RDN [address] [place] [phone] 05/10/2024 1:45 PM EST Office Visit Gynecology/Obstetics [place] [address] [place] [address] Sasha Lima PA-C [address] [place] [address] 05/17/2024 1:45 PM EST Office Visit Gynecology/Obstetics [place] [address] [place] [address] Sasha Lima PA-C [address] [place] [address] Health Maintenance Due Date Last Done Comments [...] Not on filedocumented as of this encounter Care Teams Band Tacker Relationship Specialty Start Date End Date Sheila Hinton CRNP [address] [facility] [place] [address] PCP - General Nurse Practitioner 12/23/22 documented as of this encounter
--- OUTSIDE RECORDS SUMMARY | 2024-05-09 03:49 | External Medical Summary | Summary of Care ---
Author Name Unknown Organization [facility] Address [address] [place] [address] Phone [phone] Care Team Providers Care Center Punch Operator Name Role Phone Sheila Hinton DEBRA Primary Care Provider [phone] Reason for Referral * Evaluate & Treat - Unlimited Visits (Within 30 days (routine)) - Pending Review Specialty Diagnoses / Procedures Referred By Hadley layne Referred To Contact Dietitian Diagnoses Diet controlled gestational diabetes mellitus (GDM) in third trimester Sasha Lima PA-C [address] [place] [address] Phone: tel: fax: Referral ID Status Reason Start Date Expiration Date Visits Requested Visits Authorized [id number] Pending Review Specialty Services Required 03/27/[phone] Question Answer Referral Priority Within 30 days (routine) Where should this appointment be scheduled? Kristel Comments This referral/annual renewal order is for Medical Nutrition Therapy (MNT) or Diabetes Self-Management Training (DSMT). MNT is provided by a Registered Dietitian At Risk Paraprofessional. MNT is an evidence-based medical approach to treating certain chronic conditions through the use of an individually-tailored nutrition, lifestyle changes and behavior modification plan. Diabetes Self-Management Training (DSMT) is provided by a recognized [place] Diabetes Association (ADA) coding educator: Nurse (RN), Registered Dietitian At Risk Paraprofessional (RDN), and/or Diabetes Medical Nutrition Therapy (MNT) Management (dietitian only). Diabetes educators are responsible for assessing the participant's diabetes education needs, and providing diabetes self-management training in accordance with the standards set by the ADA for DSMT. Any adjustment in diabetes therapy will be made within the guidelines of standards of practice and [facility] approved policies and procedures. I understand that the coding educator will keep me informed. Areas of Education: Pathophysiology Nutrition Physical Activity Medications Monitoring Acute Complications Chronic Complications Psychosocial Management Promote Health/Behavior Change Participant will be offered 1:1 education training if there is a lack of classes available within 2 months. Providers can also order 1:1 training if indicated for participant for the following reasons: 1:1 Training for Insulin Initiation Participant Inappropriate for Class Setting By my electronic signature, I understand that my patient will be offered the comprehensive ADA content area above unless deemed not appropriate of I specify otherwise here: Reason for Visit * Reason Onset Date Comments Referral 03/27/2024 Encounter Details Date Type Department Care Team (Late st Contact Info) Description 03/27/2024 Telephone Nutrition Services [facility] Ena Lagos [address] [place] [address] [place] [address] Mirna Parra, RDN [address] [place] [address] Referral Allergies No known active allergiesdocumented as of this encounter (statuses as of 03/27/2024) Medications ALBUTEROL 90 MCG/ACT IN AERS 2 puffs every 4 hrs. as needed for cough, wheeze, chest tightness or shortness of breath and prior exercise 1 6 07/18/200 6 Active 27-0.8 MG Oral Tablet Take [...] mouth daily. 90 Tablet 2 4 Active OctmamiTouch Verio In Vitro Strip (Glucose Blood)Indication s:Gestational [...] as of this encounter (statuses as of 03/27/2024) Active Problems Problem Noted Date Diagnosed Date [...] continue diet controlled 03/13/24: RPM reviewed; stable 03/20/20247254-SPX-bgcnirj stable (< 50% elevated) 03/27/2024-RPM-2 of 8 [...] Recommend nutrition consult with RDN (Registered Dietitian At Risk Paraprofessional). Lifestyle changes are also indicated including optimizing [...] and she has an appt with the food and drug research scientist as well. We reviewed that additional u/s [...] AM EST): Resolved. Supervision of high-risk , [facility] 12/28/2023 Overview (03/18/2024): Estimated Date of [...] as of this encounter (statuses as of 03/27/2024) Resolved Problems Problem Noted Date Diagnosed Date Resolved Date Migraine 12/23/2022 documented as of this encounter (statuses as of 03/27/2024) Immunizations Name Administration Dates Next Due COVID-19 mRNA, LNP-s, No Pre serve, 2-Dose Series ([employer]OL[employer]) 11/21/2020,10/31/2020 HEPATITIS B VACCINE, RECOMB, 20 MCG/ML, ADULT (HEPLISAV-B) 04/08/2023,03/04/2023 Pneumococcal Conjugate Vacci ne, 20-valent ([id number]) 12/23/2022 Seasonal Influenza Vac, Quad , Cell [...] money to get more. Never true 12/09/2023 [place] Depression Scale Answer Date Recorded [place] Depression Scale Total 5 03/16/2024 The thought [...] No 12/09/2023 Does the household have a [facility] hospit[facility] source of income? 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 * Telephone Encounter - Mirna Prara RDN - 03/27/2024 3:42 PM EST Participant being seen for nutrition and/or diabetes education. For billing purposes, do you mind signing the pended referral for education for this present calendar year? Thank you, Electronically signed by: Mirna Parra RDN, KEVINN, CDCES Registered Dietitian, Certified Diabetes Care and Fountain Server documented in this encounter Plan of Treatment Upcoming Encounters Date Type Department Care Team (Late st Contact Info) Description 03/28/2024 3:00 PM EST Telemedicine Virtual, Nutrition Services [address] [place] [address] Mirna Parra, RDN [address] [place] [address] 03/29/2024 11:45 AM EST [facility] [address] [place] [address] 03/29/2024 11:45 AM EST Office Visit [employer] Commerce Retailer Obstetrics Maternal Medicine, [address] [address] Inna Muro, DO [address] [place] [address] 03/29/2024 1:45 PM EST Office Visit Gynecology/Obstetics [place] [address] [place] [phone] aSsha Lima PA-C [address] [place] [address] 04/12/2024 1:45 PM EST Office Visit Gynecology/Obstetics [place] [address] [place] [phone] Sasha Lima PA-C [address] [place] [address] 04/19/2024 1:45 PM EST Office Visit Gynecology/Obstetics [place] [address] [place] [phone] Sasha Lima PA-C [address] [place] [address] 04/26/2024 1:45 PM EST Office Visit Gynecology/Obstetics [place] [address] [place] [phone] Sasha Lima PA-C [address] [place] [address] 05/10/2024 1:45 PM EST Office Visit Gynecology/Obstetics [place] [address] [place] [phone] Sasha Lima PA-C [address] [place] [address] 05/17/2024 1:45 PM EST Office Visit Gynecology/Obstetics [place] [address] [place] [phone] Sasha Lima PA-C [address] [place] [address] Scheduled Referrals Name Type Priority Associated Diagnoses Orde r Schedule CLINICAL NUTRITION AND DIABETES EDUCATION ANNUAL RENEWAL Referral Within 30 days (routine) Diet controlled gestational diabetes mellitus (GDM) in third trimester Ordered: 03/27/2024 Health Maintenance Due Date Last Done Comments [...] diabetes mellitus (GDM) in third trimester- Primary Gestational diabetes mellitus (GDM) in third trimester, gestational diabetes method of control unspecified- Primary documented in this encounter Care Teams Center Punch Operator Relationship Specialty Start Date End Date Sheila Hinton CRNP [address] [place] [address] PCP - General Nurse Practitioner 12/23/22 documented as of this encounter
--- OUTSIDE RECORDS SUMMARY | 2024-05-09 03:49 | External Medical Summary | Summary of Care ---
Author Name Unknown Organization [facility] Address [address] [place] [address] Phone [phone] Care Team Providers Care Prescription Clerk Name Role Phone Sheila Hinton DEBRA Primary Care Provider [phone] Reason for Visit * Reason Onset Date Comments Med Request 03/29/2024 Encounter Details Date Type Department Care Team ([facility] st Contact Info) Description 03/29/2024 Telephone Gynecology/Obstetics [place] [address] [place] [address] Sasha Lima PA-C [address] [place] [address] Med Request Allergies No known active allergiesdocumented as of this encounter (statuses as of 04/03/2024) Medications ALBUTEROL 90 MCG/ACT IN AERS 2 [...] as of this encounter (statuses as of 04/03/2024) Active Problems Problem Noted Date Diagnosed Date [...] continue diet controlled 03/13/24: RPM reviewed; stable 03/20/20245208-QUY-johhmae stable (< 50% elevated) 03/27/2024-RPM-2 of 8 [...] Recommend nutrition consult with RDN (Registered Dietitian Service Director). Lifestyle changes are also indicated including optimizing [...] and she has an appt with the one piece expansion maker hand as well. We reviewed that additional u/s and surveillance will be needed it GDMA2 develops; encouraged follow up with [facility] in case sugars do increase and medication is required. Questions answered. Low risk NIPT appreciated. Supervision of high-risk , third [facility] 12/28/2023 Overview (03/18/2024): Estimated Date of Delivery: [...] as of this encounter (statuses as of 04/03/2024) Resolved Problems Problem Noted Date Diagnosed Date Resolved Date Low-lying placenta 02/18/2024 Overview (02/18/2024): Has follow up ultrasound scheduled. Advised no heavy lifting and no sexual intercourse. Declines Maternal Medicine referral. Assessment & Plan (03/01/2024 10:29 AM EST): Resolved. Migraine 12/23/2022 documented as of this encounter (statuses as of 04/03/2024) Immunizations Name Administration Dates Next Due COVID-19 mRNA, LNP-s, No Pre serve, 2-Dose Series ([employer]) 11/21/2020,10/31/2020 HEPATITIS B VACCINE, RECOMB, 20 MCG/ML, ADULT (HEPLISAV-B) 04/08/2023,03/04/2023 Pneumococcal Conjugate Vacci ne, 20-valent ([id number]) 12/23/2022 Seasonal Influenza Vac, Quad , Cell [...] money to get more. 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 * Telephone Encounter - Sasha Lima PA-C [...] 04/12/2024 1:45 PM EST Office Visit Gynecology/Obstetics [address] [place] [address] Sasha Lima PA-C [address] [place] [address] 04/19/2024 1:45 PM EST Office Visit Gynecology/Obstetrics [facility] [address] [facility] [place] [address] BackerMagda CRNP [address] [facility] [place] [address] 04/26/2024 11:00 AM EST Imaging Radiology, [facility] [address] [place] [address] 04/26/2024 1:45 PM EST Office Visit Gynecology/Obstetics [place] [address] [place] [address] Sasha Lima PA-C [address] [place] [address] 04/27/2024 2:30 PM EST Telemedicine Nutrition Services [address] [place] [address] Michael Goddard, RDN [address] [place] [phone] 05/10/2024 1:45 PM EST Office Visit Gynecology/Obstetics [place] [address] [facility] [place] [address] Sasha Lima PA-C [address] [place] [address] 05/17/2024 1:45 PM EST Office Visit Gynecology/Obstetics [place] [address] [facility] [place] [address] Sasha Lima PA-C [address] [place] [address] Health Maintenance Due Date Last Done Comments HPV/Co-Test 09/20/2023 COVID-19 Vaccine (2023- season) 2023 11/21/2020, 10/31/2020 Depression Screening 12/24/2023 [...] filedocumented as of this encounter Care Teams Prescription Clerk Relationship Specialty Start Date End Date Sheila Hinton CRNP [address] [place] [address] PCP - General Nurse Practitioner 12/23/22 documented as of this encounter
--- OUTSIDE RECORDS SUMMARY | 2024-05-09 03:50 | External Medical Summary | Summary of Care ---
Author Name Unknown Organization [facility] Address [address] [place] [address] Phone [phone] Care Team Providers Care Student Truck Driver Name Role Phone Sheila Hinton Primary Care Provider [phone] Reason for Visit * Reason Onset Date Comments Home Monitoring Orders Only 03/06/2024 Encounter Details Date Type Department Care Team ([facility] st Contact Info) Description 03/06/2024 Home Monitoring Diagnostic Imaging Manager Obstetric MFM [facility] [address] [place] [address] Deneen Martines CRNP [address] [place] [address] Diet controlled gestational diabetes mellitus (GDM) in third trimester* Allergies No known active allergiesdocumented as of this encounter (statuses as of 03/06/2024) Medications ALBUTEROL 90 MCG/ACT IN AERS 2 [...] mouth daily. 90 Tablet 2 4 Active [employer] Verio In Vitro Strip (Glucose Blood)Indication s:Gestational diabetes mellitus (GDM) in third trimester, gestational diabetes method of control unspecified Test blood sugars 4 times a day (fasting and 1 hour after breakfast, lunch, and dinner). 125 Strip 3 4 Active CAPS EntrepriseTouch Verio w/Device KitIndications:G estational diabetes mellitus (GDM) [...] as of this encounter (statuses as of 03/06/2024) Active Problems Problem Noted Date Diagnosed Date Diet controlled gestational diabetes mellitus (GDM) in third trimester 03/01/2024 Overview (03/06/2024): Diagnosed at 28 weeks Nutrition referral ordered; [...] - [facility] 96 (H) 02/23/2024 08:45 AM She reports her home blood glucose as following: DATE Fasting 1 hr after Breakfast 1 hr after Lunch 1 hr after Dinner 02/29/24 73 105 103 97 03/01/24 89 111 114 88 03/02/24 96 104 122 123 03/03/24 78 134 119 114 03/04/24 104 133 122 116 03/05/24 118 84 108 104 03/06/24 89 x x x 03/06/24: MFM [facility] consult complete. Referred to [facility]. Instructions provided to report blood sugars each week for MFM review; recommend fasting 8-10 hours overnight along with having a bedtime snack of 30g CHO paired with protein; continue diet controlled Assessment & Plan (03/03/2024 11:03 AM EST): [...] Recommend nutrition consult with RDN (Registered Dietitian Timber Management Assistant). Lifestyle changes are also indicated including [...] and she has an appt with the family consumer scientist as well. We reviewed that additional [...] EST): Resolved. Supervision of high-risk , third [facility] ter 12/28/2023 Overview (03/04/2024): Estimated Date of Delivery: 05/11/24 Continue vitamin. O negative - Rhogam given on 02/16/2024. Rubella and varicella immune. Qnatal testing low risk. S/p anatomy ultrasound. Has GDM. S/p CBC - normal. No anemia. Tdap vaccine completed. GBS culture at 36 weeks. RSV vaccine at 32 to 36 weeks - desires. Completed influenza vaccine. Constipation during , antepartum [...] as of this encounter (statuses as of 03/06/2024) Resolved Problems Problem Noted Date Diagnosed Date Resolved Date Migraine 12/23/2022 documented as of this encounter (statuses as of 03/06/2024) Immunizations Name Administration Dates Next Due COVID-19 mRNA, LNP-s, No Pre serve, 2-Dose Series ([employer]) 11/21/2020,10/31/2020 HEPATITIS B VACCINE, RECOMB, 20 MCG/ML, ADULT (HEPLISAV-B) 04/08/2023,03/04/2023 Pneumococcal Conjugate Vacci ne, 20-valent ([id number]) 12/23/2022 Seasonal Influenza Vac, Quad , Cell [...] money to get more. Never true 12/09/2023 [place] Depression Scale Answer Date Recorded [place] Depression Scale Total 5 10/12/2023 The thought of harming myself has occurred to me . 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 Standard alarm settings have been set as follows: Singular glucose level > 200 Singular glucose level < 60 Patient has been advised to take blood sugar four times a day (fasting upon waking, and one hour after each meal). Patient has been oriented to remote patient monitoring, assisted with initial device set-up, and provided with instruction and education regarding the program. Patient understands that this monitoring should not be used as a replacement for emergency and/or urgent care. If patient experiences any urgent symptoms, they are aware to call office/trigonometry tutor provider for additional instructions. In emergency situations, they will report directly to the ED for further evaluation. If you would like to customize the alert parameters and/or instructions for this patient, please let me know and we can have them changed. documented in this encounter Plan of Treatment Upcoming Encounters Date Type Department Care Team (Late st Contact Info) Description 03/08/2024 8:00 AM EST Telemedicine Virtual, Nutrition Services [address] [place] [address] Sasha Watts, RDN [address] [place] [address] [place] [address] 03/16/2024 3:00 PM EST Office Visit Gynecology/Obstetics [place] [address] [place] [phone] Sasha Lima PA-C [address] [place] [address] 03/23/2024 8:15 AM EST Imaging Radiology, [address] [address] 03/29/2024 11:45 AM EST Imaging Radiology, [facility] [address] [place] [address] 03/29/2024 1:45 PM EST Office Visit Gynecology/Obstetics [place] [address] [place] [phone] Sasha Lima PA-C [address] [place] [address] 04/12/2024 1:45 PM EST Office Visit Gynecology/Obstetics [place] [address] [place] [phone] Sasha Lima PA-C [address] [place] [address] 04/19/2024 1:45 PM EST Office Visit Gynecology/Obstetics [place] [address] [place] [phone] Sasha Lima PA-C [address] [place] [address] 04/26/2024 1:45 PM EST Office Visit Gynecology/Obstetics [place] [address] [facility] [place] [address] Sasha Lima PA-C 68 [place] [address] 05/03/2024 1:45 PM EST Office Visit Gynecology/Obstetics [place] [address] [facility] [place] [phone] Sasha Lima PA-C 68 [place] [address] 05/10/2024 1:45 PM EST Office Visit Gynecology/Obstetics [place] [address] [facility] [place] [phone] Sasha Lima PA-C [address] [place] [address] 05/17/2024 1:45 PM EST Office Visit Gynecology/Obstetics [place] [address] [facility] [place] [phone] Sasha Lima PA-C 68 [place] [address] Health Maintenance Due Date Last Done Comments HPV/Co-Test 09/20/2023 COVID-19 Vaccine ( season) 2023 11/21/2020, 10/31/2020 Depression Screening 12/24/2023 12/23/2022 Cervical Cancer Screening 01/20/2026 Pap Smear 01/20/2026 01/20/2023 DTap/Tdap Vaccines (4 - Td or Tdap) 02/15/2034 02/16/2024, 08/31/2018, 2004 Pneumococcal Vaccine: Pediatrics (0 to 5 Years) and At-Risk Patients (6 to 64 Years) Completed 12/23/2022 Hepatitis B Vaccine Completed [...] diabetes mellitus (GDM) in third trimester- Primary documented in this encounter Care Teams Student Truck Driver Relationship Specialty Start Date End Date Sheila Hinton CRNP [address] [place] [address] PCP - General Nurse Practitioner 12/23/22 documented as of this encounter
--- OUTSIDE RECORDS SUMMARY | 2024-05-09 03:50 | External Medical Summary | Summary of Care ---
Author Name Unknown Organization [facility] Address [address] [place] [address] Phone [phone] Care Team Providers Care Log Stacker Operator Name Role Phone Sheila Hinton DEBRA Primary Care Provider [phone] Reason for Visit * Reason Onset Date Comments Appointment 02/28/2024 Encounter Details Date Type Department Care Team (Late st Contact Info) Description 02/28/2024 Telephone Chief Nuclear Medicine Technologist Obstetrics Maternal Medicine, [place] [address] [place] [address] [place], Nurse Chief Nuclear Medicine Technologist [facility] [address] [place], [place] [id number] Appointment Allergies No known active allergiesdocumented as of this encounter (statuses as of 02/28/2024) Medications ALBUTEROL 90 MCG/ACT IN AERS 2 [...] for Nausea. 120 Tablet 1 4 Active Docusate Sodium 100 MG Oral Capsule (Colace)Indicati ons:Constipation during , antepartum Take 1 Capsule by mouth daily as needed for Constipation. 30 Capsule 2 4 Active Triamcinolone Acetonide 0.1 % External Ointment (Aristocort) Apply topically to affected area 2 times a day. To affected area. 15 g 1 4 Active Doxylamine Succinate (Sleep) 25 MG Oral Tablet (Unisom)Indicati ons:Nausea and vomiting during Take 0.5 Tablets by mouth at bedtime as needed for Nausea. 30 Tablet 1 4 Active Aspirin 81 MG Oral Tablet ChewableIndicati ons:Supervision [...] as of this encounter (statuses as of 02/28/2024) Active Problems Problem Noted Date Diagnosed Date Low-lying placenta 02/18/2024 Overview (02/18/2024): Has follow up ultrasound scheduled. Advised no heavy lifting and no sexual intercourse. Declines Maternal Medicine referral. Supervision of high-risk , second trime ster 12/28/2023 Overview (02/18/2024): Estimated Date of Delivery: 05/11/24 Continue vitamin. O negative - Rhogam given on 02/16/2024. Rubella and varicella immune. Qnatal testing low risk. S/p anatomy ultrasound. Doing lab work on 02/16/2024: CBC, type and screen, syphilis screen, and one hour glucose test to be completed at 28 weeks. Tdap vaccine completed. GBS culture at 36 weeks. RSV vaccine at 32 to 36 weeks. Completed influenza vaccine. Constipation during , antepartum 2023 Overview (02/18/2024): Has Colace for constipation. May use Miralax as needed. Rh negative, antepartum 10/12/2023 Overview (02/18/2024): Rhogam given 02/16/2024. BMI 39.0-39.9,adult 10/12/2023 Overview (11/14/2023): Pre-gravid BMI 39.15. 11 to 20 lbs weight gain during . Baseline pre-eclampsia lab work completed. Passed early one hour glucose test. Growth ultrasound every 4 weeks. NST's weekly at 34 weeks. Delivery at 39 weeks. Patient declines MATERNAL MEDICINE referral. Nausea and vomiting during 10/12/2023 NONALLERGIC RHINITIS 10/06/2005 Bronchospasm, exercise-induced Polycystic ovaries Estimated Date of Delivery Comme nts Yes 05/11/2024 Based on last me nstrual period of 08/05/2023 (Exact Date) documented as of this encounter (statuses as of 02/28/2024) Resolved Problems Problem Noted Date Diagnosed Date Resolved Date Migraine 12/23/2022 documented as of this encounter (statuses as of 02/28/2024) Immunizations Name Administration Dates Next Due COVID-19 mRNA, LNP-s, No Pre serve, 2-Dose Series (mLED) 11/21/2020,10/31/2020 HEPATITIS B VACCINE, RECOMB, 20 MCG/ML, ADULT (HEPLISAV-B) 04/08/2023,03/04/2023 Pneumococcal Conjugate Vacci ne, 20-valent ([id number]) 12/23/2022 Seasonal Influenza Vac, Quad , Cell [...] drink = 0.6 oz pur e alcohol) occasionally PHQ-2 Answer Date Recorded PHQ Adult Total [...] money to get more. 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 Appointment scheduled. Patient aware of date, time and location of Maternal Medicine appointment. documented in this encounter Plan of Treatment Upcoming Encounters Date Type Department Care Team (Late st Contact Info) Description 03/01/2024 1:45 PM EST Office Visit Gynecology/Obstetics [facility] [address] [place] [address] Sasha Lima PA-C [address] [facility] [place] [address] 03/06/2024 8:10 AM EST Telemedicine Chief Nuclear Medicine Technologist Obstetric [facility] [address] [place] [phone] Deneen Martines CRNP [address] [place] [address] 03/08/2024 8:00 AM EST Telemedicine Virtual, Nutrition Services [address] [place] [address] Sasha Watts, RDN [address] [place] [address] 03/16/2024 3:00 PM EST Office Visit Gynecology/Obstetics [facility] [address] [place] [phone] Sasha Lima PA-C [address] [place] [address] 03/23/2024 8:15 AM EST Imaging Radiology, [facility] [address] [place] [phone] 03/29/2024 1:45 PM EST Office Visit Gynecology/Obstetics [facility] [address] [place] [phone] Sasha Lima PA-C [address] [place] [address] 04/12/2024 1:45 PM EST Office Visit Gynecology/Obstetics [facility] [address] [place] [address] Sasha Lima PA-C [address] [place] [address] 04/19/2024 1:45 PM EST Office Visit Gynecology/Obstetics [facility] [address] [place] [phone] Sasha Lima PA-C [address] [place] [address] 04/26/2024 1:45 PM EST Office Visit Gynecology/Obstetics [facility] [address] [place] [address] Sasha Lima PA-C [address] [place] [address] 05/03/2024 1:45 PM EST Office Visit Gynecology/Obstetics [facility] [address] [place] [phone] Sasha Lima PA-C [address] [place] [address] 05/10/2024 1:45 PM EST Office Visit Gynecology/Obstetics [facility] [address] [place] [address] Sasha Lima PA-C [address] [place] [address] 05/17/2024 1:45 PM EST Office Visit Gynecology/Obstetics [facility] [address] [facility] [place] [phone] Sasha Lima PA-C [address] [place] [address] Health Maintenance Due Date Last Done Comments HPV/Co-Test 09/20/2023 COVID-19 Vaccine ( season) 2023 11/21/2020, 10/31/2020 Depression Screening 12/24/2023 12/23/2022 Cervical Cancer Screening 01/20/2026 Pap Smear 01/20/2026 01/20/2023 DTap/Tdap Vaccines (4 - Td or Tdap) 02/15/2034 02/16/2024, 08/31/2018, 2004 Pneumococcal Vaccine: Pediatrics (0 to 5 Years) and At-Risk Patients (6 to 64 Years) Completed 12/23/2022 Hepatitis B Vaccine Completed 04/08/2023, 3 Influenza Vaccine (FLU shot) Completed 04/2023, 12/23/2022, 02/06/2019, Additional history exists HPV (Gardasil) Vaccine Aged Out No lo nger eligible based on patient's age to complete this topic MENINGOCOCCAL (MENACTRA/MENVEO) Aged Out No longer eligible based on patient's age to complete this topic documented as of this encounter Medical Devices Not on filedocumented as of this encounter Care Teams Log Stacker Operator Relationship Specialty Start Date End Date Sheila Hinton CRNP [address] [place] [address] PCP - General Nurse Practitioner 12/23/22 documented as of this encounter
--- OUTSIDE RECORDS SUMMARY | 2024-05-09 03:50 | External Medical Summary | Summary of Care ---
Author Name Unknown Organization [facility] Address [address] [place] [address] Phone [phone] Care Team Providers Care Storage Management Architect Name Role Phone Sheila Hinton DEBRA Primary Care Provider [phone] Reason for Referral * Evaluate & Treat - Unlimited Visits (Within 3 days (urgent)) - Pending Review Specialty Diagnoses / Procedures Referred By Hadley layne Referred To Contact Obstetrics/Gynecology / Maternal Medicine Diagnoses Gestational diabetes mellitus (GDM) in third trimester, gestational diabetes method of control unspecified Sasha Lima PA-C [address] [place] [phone] Phone: tel: fax: Referral ID Status Reason Start Date Expiration Date Visits Requested Visits Authorized [id number] Pending Review Specialty Services Required 02/24/2024 [id number] Question Answer Referral Priority Within 3 days (urgent) Has the patient had a viability scan? Yes Date performed 10/12/2023 Location performed Radiology Reason for referral Diabetes Diabetes type Gestational Where should this appointment be scheduled? [facility] Comments /Para: LMP: Patient's last menstrual period was 08/05/2023 (exact date). Patient is . JOSE ALFREDO: 05/11/2024, by Last Menstrual Period Pre-Gravid BMI: 39.15 * Evaluate & Treat - Unlimited Visits (Within 3 days (urgent)) - Pending Review Specialty Diagnoses / Procedures Referred By Hadley layne Referred To Contact Packing Shed Supervisor / Nutrition Services Diagnoses Gestational diabetes mellitus (GDM) in third trimester, gestational diabetes method of control unspecified Sasha Lima PA-C [address] [place] [address] Phone: tel: fax: Referral ID Status Reason Start Date Expiration Date Visits Requested Visits Authorized [id number] Pending Review Specialty Services Required 02/24/[phone] Question Answer Referral Priority Within 3 days (urgent) Where should this appointment be scheduled? [facility] Is the patient ? Yes Reason for Referral Gestational Diabetes Comments This referral is for Diabetes Self-Management Training (DSMT) by a recognized [place] Diabetes Association (ADA) nurse informatics educator: Nurse (RN), Registered Dietitian Director Of Outpatient Services (RDN), and/or Diabetes Medical Nutrition Therapy (MNT) Management (dietitian only). Diabetes educators are responsible for assessing the participant's diabetes education needs, and providing diabetes self-management training in accordance with the standards set by the ADA for DSMT. Any adjustment in diabetes therapy will be made within the guidelines of standards of practice and [facility] approved policies and procedures. I understand that the nurse informatics educator will keep me informed. Areas of [...] for Visit * Reason Onset Date Comments Test Results 02/24/2024 Encounter Details Date Type Department Care Team (Late st Contact Info) Description 02/24/2024 Telephone Gynecology/Obstetics [place] [address] [place] [phone] Sasha Lima PA-C [address] [place] [address] Test Results Allergies No known active allergiesdocumented as of this encounter (statuses as of 02/24/2024) Medications ALBUTEROL 90 MCG/ACT IN AERS 2 [...] after breakfast, lunch, and dinner). 1 Kit Active LancetsIndicatio ns:Gestational diabetes mellitus (GDM) in third trimester, gestational diabetes method of control unspecified Test blood sugars 4 times a day (fasting and 1 hour after breakfast, lunch, and dinner). 125 Each 3 4 Active documented as of this encounter (statuses as of 02/24/2024) Active Problems Problem Noted Date Diagnosed Date [...] as of this encounter (statuses as of 02/24/2024) Resolved Problems Problem Noted Date Diagnosed Date Resolved Date Migraine 12/23/2022 documented as of this encounter (statuses as of 02/24/2024) Immunizations Name Administration Dates Next Due COVID-19 mRNA, LNP-s, No Pre serve, 2-Dose Series ([employer]) 11/21/2020,10/31/2020 HEPATITIS B VACCINE, RECOMB, 20 MCG/ML, ADULT (HEPLISAV-B) 04/08/2023,03/04/2023 Pneumococcal Conjugate Vacci ne, 20-valent ([id number]) 12/23/2022 Seasonal Influenza Vac, Quad , Cell [...] money to get more. 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 Patient notified that ultrasound for growth is normal. Patient notified that her blood sugars show that she has gestational diabetes. Prescription sent for glucose meter and testing supplies. Advised patient to start testing blood sugars and record numbers. Patient agrees. Patient agreeable to MATERNAL MEDICINE referral for blood sugar monitoring only - advised patient to notify MATERNAL MEDICINE about this. Nutrition referral made. Next ultrasound ordered for in 4 weeks. documented in this encounter Plan of Treatment Upcoming Encounters Date Type Department Care Team (Late st Contact Info) Description 03/01/2024 1:45 PM EST Office Visit Gynecology/Obstetics [place] [address] [place] [address] [phone] Sasha Lima PA-C [address] [place] [address] 03/16/2024 3:00 PM EST Office Visit Gynecology/Obstetics [place] [address] [place] [address] Sasha Lima PA-C [address] [place] [address] 03/29/2024 1:45 PM EST Office Visit Gynecology/Obstetics [place] [address] [place] [address] Sasha Lima PA-C [address] [place] [address] 04/12/2024 1:45 PM EST Office Visit Gynecology/Obstetics [place] [address] [place] [address] Sasha Lima PA-C [address] [place] [address] 04/19/2024 1:45 PM EST Office Visit Gynecology/Obstetics [place] [address] [place] [phone] Sasha Lima PA-C [address] [place] [address] 04/26/2024 1:45 PM EST Office Visit Gynecology/Obstetics [place] [address] [place] [phone] Sasha Lima PA-C [address] [place] [address] 05/03/2024 1:45 PM EST Office Visit Gynecology/Obstetics [place] [address] [place] [phone] Sasha Lima PA-C [address] [place] [address] 05/10/2024 1:45 PM EST Office Visit Gynecology/Obstetics [place] [address] [place] [address] Sasha Lima PA-C [address] [place] [address] 05/17/2024 1:45 PM EST Office Visit Gynecology/Obstetics [place] [address] [place] [phone] Sasha Lima PA-C [address] [place] [address] Scheduled Orders Name Type Priority Associated Diagnoses Orde r Schedule MFM US MATERNAL 1ST FETUS Medical Imaging Routine Gestational diabetes mellitus (GDM) in third trimester, gestational diabetes method of control unspecified Expected: 02/24/2024, Expires: 03/26/2025 PREG FOLLOW-UP EACH FETUS Medical Imaging Routine Obesity during Expected: 03/23/2024 (Approximate), Expires: 08/24/2024 Scheduled Referrals Name Type Priority Associated Diagnoses Orde r Schedule DIABETES MANAGEMENT EDUCATION (ADA) REFERRAL Referral Within 3 days (urgent) Gestational diabetes mellitus (GDM) in third trimester, gestational diabetes method of control unspecified Ordered: 02/24/2024 MATERNAL MEDICINE REFERRAL OP Referral Within 3 days (urgent) Gestational diabetes [...] as of this encounter Visit Diagnoses Diagnosis Gestational diabetes mellitus (GDM) in third trimester, gestational diabetes method of control unspecified- Primary related conditions, unspecified, second trimester Obesity during documented in this encounter Care Teams Storage Management Architect Relationship Specialty Start Date End Date Sheila Hinton CRNP [address] [place] [address] PCP - General Nurse Practitioner 12/23/22 documented as of this encounter
--- OUTSIDE RECORDS SUMMARY | 2024-05-09 03:50 | External Medical Summary | Summary of Care ---
Author Name Unknown Organization [facility] Address [address] [place] [address] Phone [phone] Care Team Providers Care Investments Manager Name Role Phone Sheila Hinton DEBRA Primary Care Provider [phone] Encounter Details Date Type Department Care Team (Late st Contact Info) Description 03/01/2024 8:00 AM EST Office Visit Customer Specialist Obstetrics Maternal Medicine, [address] [address] Inna Muro, DO [address] [place] [address] Diet controlled gestational diabetes mellitus (GDM) in third trimester*; Low-lying placenta; Encounter for anatomic survey; 29 weeks gestation of Allergies No known active allergiesdocumented as of this encounter (statuses as of 03/01/2024) Medications ALBUTEROL 90 MCG/ACT IN AERS 2 [...] as of this encounter (statuses as of 03/01/2024) Active Problems Problem Noted Date Diagnosed Date Diet controlled gestational diabetes mellitus (GDM) in third trimester 03/01/2024 Assessment & Plan (03/01/2024 10:31 AM EST): 1'GTT and 3'GTT reviewed. Formal ADAPT consult scheduled for next week. Sharee has started checking sugars and reports all are within target range and she has an appt with the pipe stem aligner as well. We reviewed that additional u/s [...] AM EST): Resolved. Supervision of high-risk , second trime ster [...] as of this encounter (statuses as of 03/01/2024) Resolved Problems Problem Noted Date Diagnosed Date Resolved Date Migraine 12/23/2022 documented as of this encounter (statuses as of 03/01/2024) Immunizations Name Administration Dates Next Due COVID-19 mRNA, LNP-s, No Pre serve, 2-Dose Series ([employer]) 11/21/2020,10/31/2020 HEPATITIS B VACCINE, RECOMB, 20 MCG/ML, ADULT (HEPLISAV-B) 04/08/2023,03/04/2023 Pneumococcal Conjugate Vacci ne, 20-valent ([id number]) 12/23/2022 Seasonal Influenza Vac, Quad , Cell [...] money to get more. 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 I was not in a hospital or clinic location. After connecting through televideo, patient was verified with two unique identifiers. Patient (or authorized legal field support representative) was then informed that this was a Telemedicine visit and being conducted confidentially over secure lines. My office door was closed. No one else was in the room with me. Patient acknowledged consent and understanding of privacy and security of the Telemedicine visit, and gave permission to have atelemedicine presenter stay in the room in order to assist with the history and to conduct the examas needed. I informed the patient that I have reviewed their record in [employer] and presented the opportunity for them to ask any questions regarding the visit today. The patient agreed to participate. Sharee Whitfield presented today at 29w6d for an ultrasound and follow-up of her high risk . She was seen for the following indications: Problem List Items Addressed This Visit Low-lying placenta Resolved. Diet controlled gestational diabetes mellitus (GDM) in third trimester - Primary 1'GTT and 3'GTT reviewed. Formal ADAPT consult scheduled for next week. Sharee has started checking sugars and reports all are within target range and she has an appt with the pipe stem aligner as well. We reviewed that additional u/s and surveillance will be needed it GDMA2 develops; encouraged follow up with ADAPT in case sugars do increase and medication is required. Questions answered. Low risk NIPT appreciated. Other Visit Diagnoses Encounter for anatomic survey 29 weeks gestation of We reviewed today's ultrasound findings. Normal growth with no evidence of structural abnormalities, however exam suboptimal dueto advanced gestational age and position. (For full details, please refer to ultrasound report provided separately). Ms. Whitfield's questions were answered to her satisfaction. She was advised to contact our office or her OB provider for any additional questions regarding her . RECOMMENDATIONS: Follow up with MFM for ultrasound as clinically indicated pending sugar control. Thank you for allowing us to participate in the care of this patient. Please call with any questions. Inna Muro DO 03/01/2024 10:31 AM documented in this encounter Miscellaneous Notes * Assessment & Plan Note - Inna Muro DO - 03/01/2024 10:30 AM EST Associated Problem(s): Diet controlled gestational diabetes mellitus (GDM) in third trimester 1'GTT and 3'GTT reviewed. Formal ADAPT consult scheduled for next week. Sharee has started checking sugars and reports all are within target range and she has an appt with the pipe stem aligner as well. We reviewed that additional u/s and surveillance will be needed it GDMA2 develops; encouraged follow up with ADAPT in case sugars do increase and medication is required. Questions answered. Low risk NIPT appreciated. * Assessment & Plan Note - Inna Muro DO - 03/01/2024 10:29 AM EST Associated Problem(s): Low-lying placenta Resolved. documented in this encounter Plan of Treatment Upcoming Encounters Date Type Department Care Team (Late st Contact Info) Description 03/01/2024 1:45 PM EST Office Visit Gynecology/Obstetics [place] [address] [place] [phone] Sasha Lima PA-C [address] [place] [address] 03/06/2024 8:10 AM EST Telemedicine Customer Specialist Obstetric MFM [facility] [address] [place] [phone] Deneen Martines CRNP [address] [place] [address] 03/08/2024 8:00 AM EST Telemedicine Virtual, Nutrition Services [address] [place] [address] Sasha Watts RDN [address] [place] [address] [place] [address] 03/16/2024 3:00 PM EST Office Visit Gynecology/Obstetics [place] [address] [place] [phone] Sasha Lima PA-C [address] [place] [address] 03/23/2024 8:15 AM EST Imaging Radiology, [place] [address] [place] [address] 03/29/2024 1:45 PM EST Office Visit Gynecology/Obstetics [place] [address] [place] [phone] Sasha Lima PA-C [address] [place] [address] 04/12/2024 1:45 PM EST Office Visit Gynecology/Obstetics [place] [address] [place] [phone] Sasha Lima PA-C [address] [place] [address] 04/19/2024 1:45 PM EST Office Visit Gynecology/Obstetics [place] [address] [place] [phone] Sasha Lima PA-C [address] [place] [address] 04/26/2024 1:45 PM EST Office Visit Gynecology/Obstetics [place] [address] [place] [phone] Sasha Lima PA-C [address] [place] [address] 05/03/2024 1:45 PM EST Office Visit Gynecology/Obstetics [place] [address] [place] [address] Sasha Lima PA-C [address] [place] [address] 05/10/2024 1:45 PM EST Office Visit Gynecology/Obstetics [place] [address] [place] [phone] Sasha Lima PA-C [address] [place] [address] 05/17/2024 1:45 PM EST Office Visit Gynecology/Obstetics [place] [address] [place] [phone] Sasha Lima PA-C [address] [place], [place] [phone] Scheduled Orders Name Type Priority Associated Diagnoses Orde r Schedule MFM US PREG FOLLOW UP EACH FETUS Medical Imaging Routine Low-lying placenta Diet controlled gestational diabetes mellitus (GDM) in third trimester Encounter for anatomic survey 29 weeks gestation of 2 Occurrences starting 03/01/2024 until 05/11/2024 Health Maintenance Due Date Last Done Comments [...] survey 29 weeks gestation of state, incidental documented in this encounter Care Teams Investments Manager Relationship Specialty Start Date End Date Sheila Hinton CRNP [address] [facility] [place] [address] PCP - General Nurse Practitioner 12/23/22 documented as of this encounter
--- OUTSIDE RECORDS SUMMARY | 2024-05-09 03:50 | External Medical Summary | Summary of Care ---
Author Name Unknown Organization [facility] Address [address] [place] [address] Phone [phone] Care Team Providers Care Warp Spinner Name Role Phone Sheila Hinton DEBRA Primary Care Provider [phone] Reason for Visit * Reason Comments Non Stress Test Encounter Details Date Type Department Care Team (Late st Contact Info) Description 03/07/2024 2:00 PM EST Nurse Only Gynecology/Obstetics [place] [address] [place] [phone] [place], Nurse Soft Tile Setter [place] [address] [place] [address] Non Stress Test Allergies No known active allergiesdocumented as of this encounter (statuses as of 03/07/2024) Medications ALBUTEROL 90 MCG/ACT IN AERS 2 [...] as of this encounter (statuses as of 03/07/2024) Active Problems Problem Noted Date Diagnosed Date [...] Recommend nutrition consult with RDN (Registered Dietitian Ballast Cleaning Operator). Lifestyle changes are also indicated including optimizing [...] and she has an appt with the public relations analyst as well. We reviewed that additional u/s [...] EST): Resolved. Supervision of high-risk , third [facility] ter 12/28/2023 Overview (03/04/2024): Estimated Date of [...] as of this encounter (statuses as of 03/07/2024) Resolved Problems Problem Noted Date Diagnosed Date Resolved Date Migraine 12/23/2022 documented as of this encounter (statuses as of 03/07/2024) Immunizations Name Administration Dates Next Due COVID-19 mRNA, LNP-s, No Pre serve, 2-Dose Series (Triage) 11/21/2020,10/31/2020 HEPATITIS B VACCINE, RECOMB, 20 MCG/ML, ADULT (HEPLISAV-B) 04/08/2023,03/04/2023 Pneumococcal Conjugate Vacci ne, 20-valent ([id number]) 12/23/2022 Seasonal Influenza Vac, Quad , Cell [...] money to get more. 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 NON STRESS TEST is reactive. Patient has felt good movements that past several days. Sasha Larson PA-C documented in this encounter Nursing Notes * Elana Esparza RN - 03/07/2024 2:04 PM EST Patient presents for NST. Denies any concerns. EFM applied at 1402. documented in this encounter Plan of Treatment Upcoming Encounters Date Type Department Care Team (Late st Contact Info) Description 03/08/2024 8:00 AM EST Telemedicine Virtual, Nutrition Services [address] [place] [address] Sasha Watts, LILLY [address] [place] [address] [place] [address] 03/16/2024 3:00 PM EST Office Visit Gynecology/Obstetics [place] [address] [place] [address] Sasha Lima PA-C [address] [place] [address] 03/29/2024 11:45 AM EST Imaging Radiology, [facility] [address] [place] [address] 03/29/2024 1:45 PM EST Office Visit Gynecology/Obstetics [place] [address] [place] [address] Sasha Lima PA-C [address] [place] [address] 04/12/2024 1:45 PM EST Office Visit Gynecology/Obstetics [place] [address] [place] [address] Sasha Lima PA-C [address] [place] [address] 04/19/2024 1:45 PM EST Office Visit Gynecology/Obstetics [place] [address] [place] [address] Sasha Lima PA-C [address] [place] [address] 04/26/2024 1:45 PM EST Office Visit Gynecology/Obstetics [place] [address] [place] [address] Sasha Lima PA-C [address] [place] [address] 05/10/2024 1:45 PM EST Office Visit Gynecology/Obstetics [place] [address] [place] [address] Sasha Lima PA-C [address] [place] [address] 05/17/2024 1:45 PM EST Office Visit Gynecology/Obstetics [place] [address] [place] [address] Sasha Lima PA-C [address] [place] [address] Health Maintenance Due Date Last Done Comments [...] Procedure Name Priority Date/Time Associated Diagnosis Comments NON-STRESS TEST Routine 03/07/2024 2:02 PM EST Decreased movements in third trimester, single or unspecified fetus documented in this encounter Results * NON-STRESS TEST (03/07/2024 2:02 PM EST) NST Reactive 03/07/2024 2:02 PM EST Narrative Sasha Lima PA-C - 03/07/2024 2:02 PM EST ASSESSMENT assessment with Non-stress Test completed on 03/07/2024 at 30 weeks, 5 days gestation for indication of decreased movements. heart baseline: 145 bpm Variability: Moderate Decelerations: absent Accelerations: present (more than two 15 x 15 accelerations) Contractions: None NST start time: 2:02 pm NST stop time: 2:23 pm NST strip reviewed, interpreted, and approved by OB provider, Sasha Larson PA-C. NST strip stored in clinic storage file. Sasha Bosch PA-C SURGERY F inal Result documented in this encounter Visit Diagnoses Diagnosis [...] or the puerperium, antepartum condition or complication Decreased movements in third trimester, single or unspecified fetus- Primary documented in this encounter Care Teams Warp Spinner Relationship Specialty Start Date End Date Sheila Hinton CRNP [address] [facility] [place] [address] PCP - General Nurse Practitioner 12/23/22 documented as of this encounter
--- OUTSIDE RECORDS SUMMARY | 2024-05-09 03:50 | External Medical Summary | Summary of Care ---
Author Name Unknown Organization [facility] Address [address] [place] [address] Phone [phone] Care Team Providers Care Home Office Representative Name Role Phone Sheila Hinton DEBRA Primary Care Provider [phone] Reason for Visit * Reason Comments Outpatient Testing Encounter Details Date Type Department Care Team (Late st Contact Info) Description 02/23/2024 8:30 AM [facility] Laboratory [facility] [phone] [place], Lab Lock [address] [place] [address] Abnormal glucose tolerance in mother complicating Allergies No known active allergiesdocumented as of this encounter (statuses as of 02/24/2024) Medications ALBUTEROL 90 MCG/ACT IN AERS 2 puffs every 4 hrs. as needed for cough, wheeze, chest tightness or shortness of breath and prior exercise 1 6 6 Active 27-0.8 MG Oral Tablet Take 1 Tablet by mouth daily at noon. Active Vitamin B-6 25 MG Oral TabletIndicatio ns:Nausea and vomiting during Take 1 Tablet by mouth every 6 hours as needed for Nausea. 120 Tablet 1 4 Active Docusate Sodium 100 MG Oral Capsule (Colace)Indicat ions:Constipati on during , antepartum Take 1 Capsule by mouth daily as needed for Constipation. 30 Capsule 2 4 Active Triamcinolone Acetonide 0.1 % External Ointment (Aristocort) Apply topically to affected area 2 times a day. To affected area. 15 g 1 4 Active Doxylamine Succinate (Sleep) 25 MG Oral Tablet (Unisom)Indicat ions:Nausea and vomiting during Take 0.5 Tablets by mouth at bedtime as needed for Nausea. 30 Tablet 1 4 Active Aspirin 81 MG Oral Tablet ChewableIndicat ions:Supervisio n of high-risk , second trimester Take 1 Tablet by mouth daily. 90 Tablet 2 4 Active documented as of this encounter [...] mRNA, LNP-s, No Pre serve, 2-Dose Series (howsimple) 11/21/2020,10/31/2020 HEPATITIS B VACCINE, RECOMB, 20 MCG/ML, ADULT (HEPLISAV-B) 04/08/2023,03/04/2023 Pneumococcal Conjugate Vacci ne, 20-valent ([id number]) 12/23/2022 Seasonal Influenza Vac, Quad , Cell [...] money to get more. 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 Not on file Not on file documented as of this encounter Plan of Treatment Upcoming Encounters Date Type Department Care Team (Late st Contact Info) Description 03/01/2024 1:45 PM EST Office Visit Gynecology/Obstetics [place] [address] [place] [phone] Sasha Lima PA-C [address] [place] [address] 03/16/2024 3:00 PM EST Office Visit Gynecology/Obstetics [place] [address] [place] [address] Sasha Lima PA-C [address] [place] [address] 03/29/2024 1:45 PM EST Office Visit Gynecology/Obstetics [place] [address] [place] [phone] Sasha Lima PA-C [address] [place] [address] 04/12/2024 1:45 PM EST Office Visit Gynecology/Obstetics [place] [address] [facility] [place] [address] Sasha Lima PA-C [address] [place] [address] 04/19/2024 1:45 PM EST Office Visit Gynecology/Obstetics [place] [address] [place] [phone] Sasha Lima PA-C [address] [place] [address] 04/26/2024 1:45 PM EST Office Visit Gynecology/Obstetics [place] [address] [facility] [place] [address] Sasha Lima PA-C [address] [facility] [address] 05/03/2024 1:45 PM EST Office Visit Gynecology/Obstetics [place] [address] [facility] [place] [address] Sasha Lima PA-C [address] [place] [address] 05/10/2024 1:45 PM EST Office Visit Gynecology/Obstetics [place] [address] [facility] [place] [address] Sasha Lima PA-C [address] [place] [address] 05/17/2024 1:45 PM EST Office Visit Gynecology/Obstetics [place] [address] [place] [address] Sasha Lima PA-C [address] [place] [address] Health Maintenance Due Date Last Done Comments [...] Procedure Name Priority Date/Time Associated Diagnosis Comments 100-G GESTATIONAL GLUCOSE, 3 HOUR Routine 02/23/2024 11:44 AM EST Abnormal glucose tolerance in mother complicating 100-G GESTATIONAL GLUCOSE, 2 HOUR Routine 02/23/2024 10:46 AM EST Abnormal glucose tolerance in mother complicating 100-G GESTATIONAL GLUCOSE, 1 HOUR Routine 02/23/2024 9:46 AM EST Abnormal glucose tolerance in mother complicating GESTATIONAL GLUCOSE TOLERANCE, 3 HOUR Routine 02/23/2024 8:45 AM EST Abnormal glucose tolerance in mother complicating 100-G GESTATIONAL GLUCOSE, FASTING Routine 02/23/2024 8:45 AM EST Abnormal glucose tolerance in mother complicating documented in this encounter Results * (ABNORMAL) 100-G GESTATIONAL GLUCOSE, 3 HOUR (02/23/2024 11:44 AM EST) 100-g Gestational Glucose, 3 Hour 51(L) 70 - 139 mg/dL 02/23/2024 8:40 PM EST [facility] Blood Venous blood specimen / Unknown Venipuncture / Unknown 02/23/2024 11:44 AM EST 02/23/2024 11:44 AM EST Sasha Bosch PA-C LAB BLOOD ORDERAB LES Final Result Performing Organization Address [facility] Co de Phone Number [facility]ATORY [facility] [address] [place] [address] * 100-G GESTATIONAL GLUCOSE, 2 HOUR (02/23/2024 10:46 AM EST) 100-g Gestational Glucose, 2 Hour 133 70 - 154 mg/dL 02/23/2024 8:21 PM EST LAB[facility]ATORY [facility] Blood Venous blood specimen / Unknown Venipuncture / Unknown 02/23/2024 10:46 AM EST 02/23/2024 10:46 AM EST us Sasha Bosch PA-C LAB BLOOD ORDERAB LES Final Result Performing Organization Address [facility] de Phone Number [facility]ATORY [facility] [address] [place] [address] * (ABNORMAL) 100-G GESTATIONAL GLUCOSE, 1 HOUR (02/23/2024 9:46 AM EST) 100-g Gestational Glucose, 1 Hour 180(H) 70 - 179 mg/dL 02/23/2024 5:48 PM EST LAB[facility]ORY [facility] Blood Venous blood specimen / Unknown Venipuncture / Unknown 02/23/2024 9:46 AM EST 02/23/2024 9:46 AM EST us Sasha Bosch PA-C LAB BLOOD ORDERAB LES Final Result Performing Organization Address [facility] Co de Phone Number [facility]ORY [facility] [address] [place] [address] * (ABNORMAL) 100-G GESTATIONAL GLUCOSE, FASTING (02/23/2024 8:45 AM EST) 100-g Gestational Glucose, Fasting 96(H) 70 - 94 mg/dL 02/23/2024 8:24 PM EST [facility] Blood Venous blood specimen / Unknown Venipuncture / Unknown 02/23/2024 8:45 AM EST 02/23/2024 8:45 AM EST Narrative [facility] - 02/23/2024 8:24 PM EST Based on ACOG guideline, gestational diabetes mellitus is diagnosed when any of the following is met: Fasting is greater than or equal to 95 mg/dL 1 hour is greater than or equal to 180 mg/dL 2 hour is greater than or equal to 155 mg/dL 3 hour is greater than or equal to 140 mg/dL Sasha Bosch PA-C LAB BLOOD ORDERAB LES Final Result [facility] [address] [facility] [place] [address] documented in this encounter Visit Diagnoses Diagnosis Abnormal glucose tolerance in mother complicating Abnormal maternal glucose tolerance, complicating , childbirth, or the puerperium, unspecified as to episode of care documented in this encounter Care Teams Home Office Representative Relationship Specialty Start Date End Date Sheila Hinton CRNP [address] [facility] [place] [address] PCP - General Nurse Practitioner 12/23/22 documented as of this encounter
--- OUTSIDE RECORDS SUMMARY | 2024-05-09 03:50 | External Medical Summary | Summary of Care ---
Author Name Unknown Organization [facility] Address [address] [place] [address] Phone [phone] Care Team Providers Care Stringer Machine Tender Name Role Phone Sheila Hinton DEBRA Primary Care Provider [phone] Reason for Visit * Reason Onset Date Comments Appointment 03/06/2024 Encounter Details Date Type Department Care Team ([facility] st Contact Info) Description 03/06/2024 Telephone Gynecology/Obstetics [place] [address] [place] [address] Sasha Lima PA-C [address] [place] [address] Appointment Allergies No known active allergiesdocumented as [...] Recommend nutrition consult with RDN (Registered Dietitian Criminal Attorney). Lifestyle changes are also indicated including optimizing [...] and she has an appt with the video news editor as well. We reviewed that additional u/s [...] high-risk , third trimes ter 12/28/2023 Overview (03/04/2024): Estimated Date of [...] mRNA, LNP-s, No Pre serve, 2-Dose Series ([employer]) 11/21/2020,10/31/2020 HEPATITIS B VACCINE, RECOMB, 20 MCG/ML, ADULT (HEPLISAV-B) 04/08/2023,03/04/2023 Pneumococcal Conjugate Vacci ne, 20-valent ([id number]) 12/23/2022 Seasonal Influenza Vac, Quad , Cell [...] money to get more. 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 I informed pt the NST is handled by clinic but they are not in for the day so I would pass a message over for a return call if able. Please assist. Thank you. * Telephone Encounter - Sasha Lima PA-C - 03/06/2024 6:45 PM EST Please get patient scheduled for NON STRESS TEST on Wednesday at 2:45 pm. Thank you. documented in this encounter Plan of Treatment Upcoming Encounters Date Type Department Care Team (Late st Contact Info) Description 03/08/2024 8:00 AM EST Telemedicine Virtual, Nutrition Services [address] [place] [address] Sasha Watts, RDN [address] [place] [address] [place] [address] 03/16/2024 3:00 PM EST Office Visit Gynecology/Obstetics [place] [address] [place] [phone] Sasha Lima PA-C [address] [place] [address] 03/29/2024 11:45 AM EST Imaging Radiology, [place] [address] [place] [address] 03/29/2024 1:45 PM EST Office Visit Gynecology/Obstetics [place] [address] [place] [address] Sasha Lima PA-C [address] [place] [address] 04/12/2024 1:45 PM EST Office Visit Gynecology/Obstetics [place] [address] [place] [phone] Sasha Lima PA-C [address] [place] [address] 04/19/2024 1:45 PM EST Office Visit Gynecology/Obstetics [place] [address] [place] [address] Sasha Lima PA-C [address] [place] [address] 04/26/2024 1:45 PM EST Office Visit Gynecology/Obstetics [place] [address] [place] [phone] Sasha Lima PA-C [address] [place] [address] 05/10/2024 1:45 PM EST Office Visit Gynecology/Obstetics [place] [address] [place] [address] Sasha Lima PA-C [address] [place] [address] 05/17/2024 1:45 PM EST Office Visit Gynecology/Obstetics [place] [address] [place] [address] Sasha Lima PA-C [address] [place] [address] Health Maintenance Due Date Last Done Comments [...] filedocumented as of this encounter Care Teams Stringer Machine Tender Relationship Specialty Start Date End Date Sheila Hinton CRNP [address] [place] [address] PCP - General Nurse Practitioner 12/23/22 documented as of this encounter
--- OUTSIDE RECORDS SUMMARY | 2024-05-09 03:50 | External Medical Summary | Summary of Care ---
Author Name Unknown Organization [facility] Address [address] [place] [address] Phone [phone] Care Team Providers Care Tomahawk Weapon System Operator Name Role Phone Sheila Hinton DEBRA Primary Care Provider [phone] Reason for Visit * Reason Comments Return Visit Encounter Details Date Type Department Care Team (Late st Contact Info) Description 03/01/2024 1:45 PM EST Office Visit Gynecology/Obstetics [place] [address] [place] [phone] Sasha Lima PA-C [address] [place] [address] Supervision of high-risk , third trimester*; Rh negative, antepartum; Diet controlled gestational diabetes mellitus (GDM) in third trimester; BMI 39.0-39.9,adult Allergies No known active allergiesdocumented as of this encounter (statuses as of 03/04/2024) Medications ALBUTEROL 90 MCG/ACT IN AERS 2 puffs every 4 hrs. as needed for cough, wheeze, chest tightness or shortness of breath and prior exercise 1 6 10/06/200 6 Active 27-0.8 MG Oral Tablet Take [...] as of this encounter (statuses as of 03/04/2024) Active Problems Problem Noted Date Diagnosed Date Diet controlled gestational diabetes mellitus (GDM) in third trimester 03/01/2024 Overview (03/03/2024): Diagnosed at 28 weeks Nutrition referral ordered; [...] - [facility] 96 (H) 02/23/2024 08:45 AM Assessment & Plan (03/01/2024 10:31 AM EST): 1'GTT and 3'GTT reviewed. Formal ADAPT consult scheduled for next week. Sharee has started checking sugars and reports all are within target range and she has an appt with the short filler bunch machine operator as well. We reviewed that [...] as of this encounter (statuses as of 03/04/2024) Resolved Problems Problem Noted Date Diagnosed Date Resolved Date Migraine 12/23/2022 documented as of this encounter (statuses as of 03/04/2024) Immunizations Name Administration Dates Next Due COVID-19 mRNA, LNP-s, No Pre serve, 2-Dose Series ([employer]) 11/21/2020,10/31/2020 HEPATITIS B VACCINE, RECOMB, 20 MCG/ML, ADULT (HEPLISAV-B) 04/08/2023,03/04/2023 Pneumococcal Conjugate Vacci ne, 20-valent ([id number]) 12/23/2022 Seasonal Influenza Vac, Quad , Cell [...] money to get more. 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 BP 116/62 | Wt 116 kg (255 lb 11.2 oz) | LMP 08/05/2023 (Exact Date) | BMI 42.60 kg/m | BSA 2.31 m Doing well. Denies vaginal bleeding, leaking of fluid, vaginal pressure, contractions, abdominal pain, or abnormal vaginal discharge. Denies headaches, blurry vision, or right upper quadrant pain. Patient states she feels good movement. Patient reports that she has noticed some toenail concerns. Blood sugars: Fastin, 97, 91, 73, 89, 1 Hour After Meals: All less than 140, one 170 Physical Exam General: alert and oriented, no acute distress Pulmonary: normal respiratory effort, no accessory muscle use. Abdomen: gravid, soft, non-tender heart rate: 140's bpm OB [place] Problems (from 09/24/23 to present) Problem Noted Diagnosed Resolved Diet controlled gestational diabetes mellitus (GDM) in third trimester 03/01/2024 by Jina, Inna De Paulina, DO No Diagnosed at 28 weeks Nutrition [...] - [facility] 96 (H) 02/23/2024 08:45 AM Supervision of high-risk , third trimester 12/28/2023 [...] Sasha Lima PA-C No Rhogam given 02/16/2024. BMI 39.0-39.9,adult 10/12/2023 by Sasha Lima PA-C No Pre-gravid BMI 39.15. 11 to 20 lbs weight gain during . Baseline pre-eclampsia lab work completed. Passed early one hour glucose test. Growth ultrasound every 4 weeks. NST's weekly at 34 weeks. Delivery at 39 weeks. Plan: -Advised Epsom Salts baths for toenails. -Rhogam given and Tdap given. -Following with [facility]ERNAL [facility]ICINE for blood sugar management with gestational diabetes. -CBC shows no anemia. -RSV vaccine at 32 to 36 weeks. Counseled patient to call triage/go to [...] documented in this encounter Nursing Notes * Leora Monroy LPN - 03/01/2024 1:50 PM EST Routine OB check. Denies questions or complaints. documented in this encounter Plan of Treatment Upcoming Encounters Date Type Department Care Team (Late st Contact Info) Description 03/06/2024 8:10 AM EST Telemedicine Terrazzo Worker Obstetric MFM [facility] [address] [place] [address] Deneen Martines CRNP [address] [place] [address] 03/08/2024 8:00 AM EST Telemedicine Virtual, Nutrition Services [address] [place] [address] Sasha Watts, RDN [address] [place] [address] [place] [address] 03/16/2024 3:00 PM EST Office Visit Gynecology/Obstetics [place] [address] [place] [address] Sasha Lima PA-C [address] [place] [address] 03/23/2024 8:15 AM EST Imaging Radiology, [place] [address] [place] [address] 03/29/2024 1:45 PM EST Office Visit Gynecology/Obstetics [place] [address] [place] [address] Sasha Lima PA-C [address] [facility] [place] [address] 04/12/2024 1:45 PM EST Office Visit Gynecology/Obstetics [place] [address] [place] [address] Sasha Lima PA-C [address] [place] [address] 04/19/2024 1:45 PM EST Office Visit Gynecology/Obstetics [place] [address] [place] [address] Sasha Lima PA-C [address] [place] [address] 04/26/2024 1:45 PM EST Office Visit Gynecology/Obstetics [place] [address] [place] [address] Sasha Lima PA-C [address] [place] [address] 05/03/2024 1:45 PM EST Office Visit Gynecology/Obstetics [place] [address] [place] [address] Sasha Lima PA-C [address] [place] [address] 05/10/2024 1:45 PM EST Office Visit Gynecology/Obstetics [place] [address] [facility] [place] [address] Sasha Lima PA-C [address] [place] [address] 05/17/2024 1:45 PM EST Office Visit Gynecology/Obstetics [place] [address] [place] [address] Sasha Lima PA-C [address] [place] [address] Health Maintenance Due Date Last Done Comments [...] as of this encounter Visit Diagnoses Diagnosis Supervision of high-risk , third trimester- Primary Rh negative, antepartum Rhesus isoimmunization affecting management of mother, antepartum condition Diet controlled gestational diabetes mellitus (GDM) in third trimester BMI 39.0-39.9,adult Body Mass Index 39.0-39.9, adult Diet controlled gestational diabetes mellitus (GDM) in third trimester- Primary Low-lying placenta Hemorrhage from placenta previa, unspecified as to episode of care Encounter for anatomic survey 29 weeks gestation of state, incidental documented in this encounter Care Teams Tomahawk Weapon System Operator Relationship Specialty Start Date End Date Sheila Hinton CRNP [address] [place] [address] PCP - General Nurse Practitioner 12/23/22 documented as of this encounter"
--- OUTSIDE RECORDS SUMMARY | 2024-05-09 03:50 | External Medical Summary | Summary of Care ---
Author Name Unknown Organization [facility] Address [address] [place] [address] Phone [phone] Care Team Providers Care Water Filter Cleaner Name Role Phone Sheila Hinton DEBRA Primary Care Provider [phone] Encounter Details Date Type Department Care Team (Late st Contact Info) Description 03/06/2024 Telephone Wildlife Veterinarian Obstetrics Maternal Medicine, [place] [address] [place] [address] [place], Nurse Wildlife Veterinarian [facility] [address] [place] [address] Allergies No known active allergiesdocumented as of [...] Tablet by mouth daily. 90 Tablet 2 Active OneTouch Verio In Vitro Strip (Glucose [...] Recommend nutrition consult with RDN (Registered Dietitian Votator Machine Operator). Lifestyle changes are also indicated including [...] and she has an appt with the inspector multifocal lens as well. We reviewed that additional u/s [...] EST): Resolved. Supervision of high-risk , [facility] 12/28/2023 Overview (03/04/2024): Estimated Date [...] mRNA, LNP-s, No Pre serve, 2-Dose Series ([employer]edge[employer]) 11/21/2020,10/31/2020 HEPATITIS B VACCINE, RECOMB, 20 MCG/ML, ADULT (HEPLISAV-B) 04/08/2023,03/04/2023 Pneumococcal Conjugate Vacci ne, 20-valent ([id number]) 12/23/2022 Seasonal Influenza Vac, Quad , Cell [...] money to get more. 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 Appointment scheduled. Patient aware of date, time and location of Maternal Medicine appointment. * Telephone Encounter - Nikole Gleason OSA - 03/06/2024 9:39 AM EST ----- Message from Deneen Martines sent at 03/06/2024 9:21 AM EST ----- Regarding: needs growth scan Please assist patient with scheduling a growth scan in 3-4 weeks; last MFM scan was 03/01/2024; indications of gestational diabetes and class 2 obesity. Thanks! documented in this encounter Plan of Treatment Upcoming Encounters Date Type Department Care Team (Late st Contact Info) Description 03/08/2024 8:00 AM EST Telemedicine Virtual, Nutrition Services [facility] [address] [place] [phone] Sasha Watts, LILLY [address] [place] [address] RENEE Ferreira [phone] 03/16/2024 3:00 PM EST Office Visit Gynecology/Obstetics [place] [address] [place] [phone] Sasha Lima PA-C [address] [place] [address] 03/23/2024 8:15 AM EST Imaging Radiology, [place] [address] [place] [phone] 03/29/2024 11:45 AM EST Imaging Radiology, [facility] [address] [place] [address] 03/29/2024 1:45 PM EST Office Visit Gynecology/Obstetics [place] [address] [place] [phone] Sasha Lima PA-C [address] [place] [address] 04/12/2024 1:45 PM EST Office Visit Gynecology/Obstetics [place] [address] [place] [phone] Sasha Lima PA-C [address] [place] [address] 04/19/2024 1:45 PM EST Office Visit Gynecology/Obstetics [place] [address] [place] [phone] Sasha Lima PA-C [address] [place] [address] [phone] 04/26/2024 1:45 PM EST Office Visit Gynecology/Obstetics [place] [address] [place] [phone] Sasha Lima PA-C [address] [place] [address], [place] [address] 05/03/2024 1:45 PM EST Office Visit Gynecology/Obstetics [place] [address] [facility] [place] [phone] Sasha Lima PA-C [address] [facility] [place] [address] 05/10/2024 1:45 PM EST Office Visit Gynecology/Obstetics [place] [address] [facility] [place] [phone] Sasha Lima PA-C [address] [facility] [place] [address] 05/17/2024 1:45 PM EST Office Visit Gynecology/Obstetics [place] [address] [facility] [place] [phone] Sasha Lima PA-C [address] [place] [address] Health Maintenance Due Date Last Done Comments [...] filedocumented as of this encounter Care Teams Water Filter Cleaner Relationship Specialty Start Date End Date Sheila Hinton CRNP [address] [place] [phone] PCP - General Nurse Practitioner 12/23/22 documented as of this encounter
--- OUTSIDE RECORDS SUMMARY | 2024-05-09 03:50 | External Medical Summary | Summary of Care ---
Author Name Unknown Organization [facility] Address [address] [place] [address] Phone [phone] Care Team Providers Care Grain Miller Helper Name Role Phone Sheila Hinton Primary Care Provider Reason for Referral * Evaluate & Treat - Unlimited Visits (Within 3 days (urgent)) - Pending Review Specialty Diagnoses / Procedures Referred By Hadley layne Referred To Contact Thermospray Operator Diagnoses Supervision of high risk in third trimester Diet controlled gestational diabetes mellitus (GDM) in third trimester Deneen Martines CRNP [address] [place] [address] Phone: tel: fax: Referral ID Status Reason Start Date Expiration Date Visits Requested Visits Authorized [id number] Pending Review Specialty Services Required 4 1 1 Question Answer Referral Priority Within 3 days (urgent) [facility] Chronic Disease Management Chronic Disease Management Diabetes in Alarm Settings Standard per protocol Reason for Visit * Reason Comments Consultation High-risk * Evaluate & Treat - Unlimited Visits (Within 3 days (urgent)) - Pending Review Specialty Diagnoses / Procedures Referred By Hadley layne Referred To Contact Obstetrics/Gynecology / Maternal Medicine Diagnoses Gestational diabetes mellitus (GDM) in third trimester, gestational diabetes method of control unspecified Sasha Lima PA-C [address] [place] [address] Phone: tel: fax: Referral ID Status Reason Start Date Expiration Date Visits Requested Visits Authorized [id number] Pending Review Specialty Services Required 02/24/[phone] Encounter Details Date Type Department Care Team ([facility] Contact Info) Description 03/06/2024 8:10 AM EST Telemedicine Life Skills Worker Obstetric MFM [facility] [address] [facility] [id number] [facility] [address] [facility] [id number] Supervision of high risk in third trimester*; 30 weeks gestation of ; Diet controlled gestational diabetes mellitus (GDM) in [...] Recommend nutrition consult with RDN (Registered Dietitian Alteration Manager). Lifestyle changes are also indicated including optimizing [...] and she has an appt with the graphic design teacher as well. We reviewed that additional u/s [...] mRNA, LNP-s, No Pre serve, 2-Dose Series (modulR) 11/21/2020,10/31/2020 HEPATITIS B VACCINE, RECOMB, 20 MCG/ML, ADULT (HEPLISAV-B) 04/08/2023,03/04/2023 Pneumococcal Conjugate Vacci ne, 20-valent ([id number]) 12/23/2022 Seasonal Influenza Vac, Quad , Cell [...] money to get more. 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 I was in a hospital or clinic location. After connecting through [employer],patient was verified with two unique identifiers. Patient (or authorized legal international representative) was then informed that this was a Telemedicine visit and being conducted confidentially over secure lines. Methods to assure confidentiality were taken. Patient acknowledged consent and understanding of pr ivacy and security of the Telemedicine visit. The patient agreed to participate. Sharee Whitfield is a 28 year old with intrauterine at 30w4d (Estimated Date of Delivery: 05/11/24 by exact LMP) who presents today for an MFM consult due to gestational diabetes andclass II obesity. HPI/CURRENT : pre- BMI=class 2 obesity (106.6 kg (235 lb); ); FOB #1; complicated by above. Genetic testing: Low Risk Cell Free DNA [facility] [place] Problems (from 09/24/23 to present) Problem Noted Diagnosed Resolved Diet controlled gestational diabetes mellitus (GDM) in third trimester Overview Addendum 03/06/2024 9:21 AM by Deneen Martines CRNP Diagnosed at 28 weeks Nutrition referral ordered; [...] CHO paired with protein; continue diet controlled Obesity in , antepartum Overview Addendum 03/06/2024 9:20 AM by Deneen Martines CRNP Pre-gravid BMI 39.15. Class 2 I have reviewed this patient's previous OB ultrasound reports, pertinent labwork and testing provided by her referring OB provider. Current Outpatient Medications Medication Sig Dispense Refill ALBUTEROL 90 MCG/ACT IN AERS 2 puffs every 4 hrs. as needed for cough, wheeze, chest tightness or shortness of breath and prior exercise (Patient not taking: Reported on 03/06/2024) 1 6 Aspirin 81 MG Oral Tablet Chewable Take 1 Tablet by mouth daily. 90 Tablet 2 Docusate Sodium 100 MG Oral Capsule (Colace) Take 1 Capsule by mouth daily as needed for Constipation. 30 Capsule 2 Doxylamine Succinate (Sleep) 25 MG Oral Tablet (Unisom) Take 0.5 Tablets by mouth at bedtime as needed for Nausea. (Patient not taking: Reported on 03/06/2024) 30 Tablet 1 Lancets Test blood sugars 4 times a day (fasting and 1 hour after breakfast, lunch, and dinner). 125 Each 3 OneTouch Verio In Vitro Strip (Glucose Blood) Test blood sugars 4 times a day (fasting and 1 hour after breakfast, lunch, and dinner). 125 Strip 3 OneTouch Verio w/Device Kit Test blood sugars 4 times a day (fasting and 1 hour after breakfast, lunch, and dinner). 1 Kit 0 27-0.8 MG Oral Tablet Take 1 Tablet by mouth daily at noon. Triamcinolone Acetonide 0.1 % External Ointment (Aristocort) Apply topically to affected area 2 times a day. To affected area. (Patient not taking: Reported on 03/06/2024) 15 g 1 Vitamin B-6 25 MG Oral Tablet Take 1 Tablet by mouth every 6 hours as needed for Nausea. (Patient not taking: Reported on 03/06/2024) 120 Tablet 1 No current facility-administered medications for this visit. Review of patient's allergies indicates: No Known Allergies OB History Para Term AB Living 1 0 0 0 0 0 SAB IAB Ectopic Multiple Live Births 0 0 0 0 0 # Outcome Date GA Lbr Koby/2nd Weight Sex Type Anes PTL Lv 1 Current Obstetric Comments 2023 FOB#1 Demar Mustafa" 28YO, healthy, no children outside relationship Past Medical History: Diagnosis Date Bronchospasm, exercise-induced Chronic rhinitis Exercise-induced asthma denies concerns; reports last required inhaler years ago as of 2023 GDM (gestational diabetes mellitus) 2023 Migraine Other chronic sinusitis Polycystic ovaries does not have PCOS per pt Past Surgical History: Procedure Laterality Date REMOVE TONSILS & ADENOIDS, UNDER 10 age 2 T & A, age<10 Family History Problem Relation Name Age of Onset Allergies Mother hayfever and food allergies Allergies Father hayfever Allergies Sister eczema, hives Thyroid Disorder Sister Other (Asperger) Sister Allergies Grandmother (Maternal) hayfever and hives Other (bladder cancer) Grandmother (Maternal) in remission Allergies Grandfather (Maternal) hayfever Heart disease Grandfather (Maternal) Alzheimer's disease Grandmother (Paternal) Cataracts Grandfather (Paternal) Asthma Aunt (Unspecified) maternal Social History Tobacco Use Smoking status: Former Current packs/day: 0.00 Average packs/day: 0.3 packs/day for 3.0 years (0.8 ttl pk-yrs) Types: Cigarettes Start date: 2014 Quit date: 2018 Years since quittin.9 Passive exposure: Past Smokeless tobacco: Never Tobacco comments: no passive smoke exposures Vaping Use Vaping status: Never Used Substance Use Topics Alcohol use: Not Currently Comment: denies in Drug use: Never REVIEW OF SYSTEMS: headaches: no nausea/vomiting: denies reports movement: yes abdominal pain/tenderness/cramping/contractions: no vaginal bleeding: no vaginal leaking of fluid: no all other systems negative PHYSICAL EXAM: LMP 08/05/2023 (Exact Date) General: Well appearing and in no acute distress Psych: Alert to time, place, and person and [place] DISCUSSION/RECOMMENDATIONS: Problem List Items Addressed This Visit [facility] [place] Supervision of high risk in third trimester Obesity in , antepartum CONSIDERATIONS: Discussed obstetrical risks associated with class [...] recommend weekly surveillance starting at 37 weeks. Diet controlled gestational diabetes mellitus (GDM) in third trimester CONSIDERATIONS: Reviewed etiology and risks associated with gestational diabetes mellitus (GDM), including risks topregnancy, fetus, and maternal progression to Type 2 DM. Instructed on proper use of glucometer; supplies ordered, if indicated. Advised that life-long screening for diabetes is recommended every 1-3 years. RECOMMENDATIONS: Recommend monitoring blood sugars with daily fasting blood sugar (maintained at less than 95) and 1hour postprandial measurements (maintained at less than 140). Medications should be adjusted to maintain these target values. Report levels to MFM (Maternal- Medicine) weekly. Recommend nutrition consult with RDN (Registered Dietitian Alteration Manager). Lifestyle changes are also indicated including optimizing gestational weight gain and physical activity of 30 minutes per day, if not otherwise contraindicated in . Insulin is preferred if medications are indicated to optimize euglycemia. Metformin (preferred overglyburide) may also be used in some circumstances. [...] admission (or 6-8 weeks if not completed). Relevant Orders REMOTE PATIENT MONITORING REFERRAL Recommend follow up growth ultrasound with Maternal Medicine in 3-4 weeks. MFM PARS notified to assist patient with scheduling same. DEBRA Pandey 03/06/2024 9:27 AM documented in this encounter Miscellaneous Notes * Pt Handout (on AVS) - Deneen Martines CRNP - 03/06/2024 9:22 AM EST Images from the original note were not included. [id number] Gestational Diabetes: Exercise Exercise can help you keep your blood sugar in a normal range. That?s because your body uses more blood sugar when you exercise. Diabetes in can often be managed with careful nutrition and exercise alone. Then you may not need medicine to control your blood sugar. Exercise regularly Your healthcare provider may want you to exercise each day. The best time depends on when your blood sugar is highest. Exercising may also help ease some common symptoms of . These include bloating, constipation, and backaches. Ask about exercise at your first care visit. Your provider will work with you to make an exercise plan that fits your needs. Here are some tips: Aim to exercise for 30 to 60 minutes a day. Do this at moderate intensity. This means you're moving enough to raise your heart rate and start sweating. But you can still talk normally. Try breaking up daily exercise into 2 or 3 sessions. For example, take a 15- minute walk after each meal. Exercise with a friend or your partner. This may help you stick to your exercise plan. Go at a comfortable pace. Don?t tire yourself out. Exercise safely Ask your provider about exercise safety for you and your baby. Walking, swimming, and low-impact orwater aerobics are often the safest things to do. Other safety tips include: Don't do activities where you jump, turn, twist, stop or start quickly. Don't lift heavy weights. Don't exercise on your back after the first trimester. This can put too much pressure on an important vein. It can limit blood flow to the baby. If you do yoga or Pilates, find a class designed for . Use a sports bra to support your breasts. You may also want to use a belly support belt later inpregnancy. Don't get overheated. Don't do hot yoga or hot Pilates. Don't raise your heart rate to a level that makes it hard to talk. Drink plenty of water. If you use insulin, carry a carbohydrate snack with you. If you walk or do low-impact aerobics, wear sturdy shoes. If you haven?t eaten in 2 or more hours, have a light snack before exercising. Don't do contact sports that put you at risk of being hit in the belly. These include boxing, ice hockey, soccer, and basketball. Don't go skydiving or scuba diving. Don't do things that may cause a serious fall. These include horseback riding, gymnastics, and off-road cycling. Use a stationary bike. It's a safer choice than a standard bike. It will stop you from getting off balance with your growing belly. When it's not safe to exercise It's not advised to exercise when if you have any of these health conditions: Some types of heart and lung diseases with twins or more, and at risk for labor labor of your water has broken (ruptured membranes) Placenta previa later than 26 weeks of Preeclampsia or high blood pressure due to Severe anemia Cervical insufficiency or cerclage When to call your healthcare provider Call your provider right away or go to the emergency room (ER) if you have any of these: Belly pain Shortness of breath before starting exercise Vaginal bleeding Dizziness or feeling faint Chest pain Headache Decreased movement contractions Muscle weakness Calf pain or swelling Fluid leaking from the vagina Last Reviewed Date: 2021 00:00:00 2482-0978 The [employer]. All rights reserved. This information is not intended as a substitute for professional medical care. Always follow your healthcare professional's instructions. * Pt Handout (on AVS) - Deneen Martines CRNP - 03/06/2024 9:22 AM EST Images from the original note were not included. 94257 Healthy Meals for Diabetes Figuring out what [...] of rice 4 to 6 crackers 1/2 American muffin 1/2 cup of black beans 1/4 of a large baked potato (3 ounces) 2/3 cup of plain fat-free yogurt 1 cup of soup 1/2 cup of casserole 6 chicken nuggets 2-xyqt-olwbgx brownie or cake without frosting 2 small [...] plate. This will help when [facility] and can?t measure your servings. For instance, [...] food choices. Bring a healthy dish to [employer]. Choose healthy snacks When it comes to [...] much easier. Last Reviewed Date: 2023 00:00:00 2188-0585 The [employer]. All rights reserved. This information is not intended as a substitute for professional medical care. Always follow your healthcare professional's instructions. * Pt Handout (on AVS) - Deneen Martines TamaraDEBRA - 03/06/2024 9:22 AM EST Images from the original note were not included. 45016 If You Need Extra Insulin During During , your body may not be able to make enough insulin to control your blood sugar. If this happens, you may need extra insulin. This will help control your blood sugar. In some cases, anoral antidiabetic medicine may be used. An example of this is glyburide. But insulin is used most often. Insulin is a natural substance. It is not addictive. It does not harm your baby. It does not cross the placenta. That means it does not affect your baby the way taking a pill would. If you did not have diabetes before , you will likely stop taking insulin after your baby is born. Learning to use insulin Your healthcare provider will prescribe your insulin. They will teach you how to give yourself a shot. With practice, you?ll get comfortable doing it. You will need to inject it 1 or more times a day. Insulin is injected into fatty tissue. The best site for a shot of insulin is in your belly area. But you can also do the shot in your upper arm or thigh. Talk with your healthcare provider about where to give the shot. Here are some steps to follow: Choose an injection site. Clean it with alcohol if the skin is dirty. Pinch a fold of skin. Insert the needle at a steep angle. The best angle will depend on your body type, the length of the needle, and where you put the shot. Your healthcare provider will help youfind the best angle. Keeping the skin pinched, push the plunger down. This injects the insulin. Release the pinched skin. Remove the needle from your skin. If you see blood or insulin leaking from your skin, press firmly on the site for 5 to 8 seconds. Don?t rub your skin in the area. [place] and syringes should be used only 1 time. After using, throw them away in a puncture-proof container. This is known as a sharps container. Don?t throw needles in your household trash. Talk to your healthcare provider if you have any questions or concerns about taking insulin. The best site for injecting insulin is your abdomen. But you can also inject into an upper arm or thigh. Talk with your health care provider about where to give yourself a shot. Finding the right dose for you Your healthcare provider will work with you to find the right dose of insulin for you. It may take time. This is because you need to balance your insulin with your food and exercise. And your body needs more insulin as your baby grows. You must check your blood sugar several times a day. This is to be sure your insulin is working. Ifyour blood sugar is too high or too low, your healthcare provider will adjust your dose. Low blood sugar Taking insulin puts you at risk of low blood sugar. Symptoms of low blood sugar include: Shakiness Dizziness Weakness Confusion If you feel any of these symptoms, check your blood sugar right away. Always treat low blood sugar quickly. To do this, eat 15 grams of fast-acting sugar, such as: 3 glucose tablets 5 to 6 pieces of hard candy 1 to 2 tablespoons of honey or sugar cup fruit juice or regular, nondiet soda 1 cup fat-free milk Then check your blood sugar again in 15 minutes. If your blood sugar is still low, eat another 15 grams of sugar. If your blood sugar does not return to the target range in 30 minutes, call your healthcare provider. Last Reviewed Date: 2022 00:00:00 7252-3958 The [employer]. All rights reserved. This information is not intended as a substitute for professional medical care. Always follow your healthcare professional's instructions. * Pt Handout (on AVS) - Deneen Martines CRNP - 03/06/2024 9:22 AM EST Images from the original note were not included. 32146 Understanding Carbohydrates Just like a car needs the right type of fuel to run, you need the right kind of food to function. To keep your energy level up, your body needs food that has carbohydrates (carbs). But carbs raise blood sugar levels higher and faster than other kinds of food. Your dietitian will work with you to figure out the amount of carbs you need. Carbs come in 3 types: starches, sugars, and fiber. Starches Starches are found in grains, some vegetables, and beans. Grain products include bread, pasta, cereal, and tortillas. Starchy vegetables include potatoes, peas, corn, [place] beans, yams, and squash. Kidney beans, ikrk beans, black beans, garbanzo beans, and lentils also have starches. Sugars Sugars are found naturally in many foods. Or they can be added. Foods that contain natural sugar include fruits and fruit juices, dairy products, honey, and molasses. Added sugars are found in most desserts, processed foods, candy, regular soda, and fruit drinks. These are very helpful to treat lowblood sugar (hypoglycemia). They give you sugar quickly. Try to keep at least 15 to 20 grams of these simple sugars with you at all times. Eat or drink these if you start to have symptoms of low blood sugar. Fiber Fiber comes from plant foods. Your body can't digest most fiber. Instead of raising blood sugar levels like other carbs, fiber stops blood sugar from rising too quickly. Fiber is found in fruits, vegetables, whole grains, beans, peas, and many nuts. Understanding how to count your carbs Keep track of the amount of carbs you eat. This can help you keep the right balance of carbs, physical activity, and medicine. The amount of carbs you need will be different from what other people need. How much you need depends on many things. These include your health, the medicines you take, andhow active you are. Your healthcare team will help you figure out the right amount of carbs for you. You may start with 45 to 60 grams of carbs per meal, depending on your case. Carb counting is a system that helps you keep track of the carbohydrates you eat at each meal. Carbs come from many foods. These include grains, starchy vegetables, fruit, milk, beans, and snackfoods. You can either count carbohydrate grams or carbohydrate servings. When you count carbohydrate servings, 1 carbohydrate serving = 15 grams of carbohydrates. Here are some examples of foods that have about 15 grams of carbs (1 serving of carbohydrates): 1/2 cup of canned or frozen fruit A small piece of fresh fruit (4 ounces) 1 slice of bread 1/2 cup of oatmeal 1/3 cup of rice 4 to 6 crackers 1/2 American muffin 1/2 cup of black beans 1/4 of a large baked potato (3 ounces) 2/3 cup of plain fat-free yogurt 1 cup of soup 1/2 cup of casserole 6 chicken nuggets 1-ppfk-sxphtn brownie or cake without frosting 2 small cookies 1/2 cup of ice cream or sherbet Carb counting is easier when food labels are available. Look at the label to see how many grams of total carbs per serving the food contains. Then you can figure out how much you should eat. If your food doesn't have a nutrition label, you should be able to get an idea of how many carbs there are per serving by using a book or website. Two very important lines to look at on the label are the serving size and the total carbohydrate amount per serving. Here are some tips for using food labels to count your carbs: Check the serving size. The information on the label is based on that serving size. If you eat more than the listed serving size, you may have to double or triple the other information on the label. Check the total grams of carbs. Total carbohydrate from the label includes sugar, starch, and fiber. Be sure to use the total carbohydrate number (minus the fiber) and not sugar alone. Know how many grams of carbs you can have. Be familiar with the matching portion sizes. Compare labels. Compare the labels of different products. Look at serving sizes and total carbs to find the products that work best for you. Don't forget protein and fat. With the focus on carb counting, it might be easy to forget protein and fat in your meals. Don't forget to include sources of protein and healthy fat to balance your meals. Also watch how much salt (sodium) you eat. This is especially true if you have high blood pressure. If you have diabetes, limit the amount of sodium to less than 2,300 mg a day. It?s also important to be consistent with the amount of carbs and time you eat when taking a fixed dose of diabetes medicine. Work with your healthcare provider or dietitian if you need more help. They can help you keep track of your carbs. They can also help you figure out how many grams of carbs you should have. Last Reviewed Date: 2023 00:00:00 [id number] The [employer]. All rights reserved. This information is not intended as a substitute for professional medical care. Always follow your healthcare professional's instructions. * Pt Handout (on AVS) - Deneen Martines CRNP - 03/06/2024 9:22 AM EST Images from the original note were not included. 84731 What Is Gestational Diabetes? Gestational diabetes is [...] will likely work with a registered dietitian (RD). This is an expert on food and [...] can help. Last Reviewed Date: 2022 00:00:00 6306-2411 The [employer]. All rights reserved. This information is not intended as a substitute for professional medical care. Always follow your healthcare professional's instructions. * Pt Handout (on AVS) - Deneen Martines CRNP - 03/06/2024 9:22 AM EST Images from the original note were not included. 22695 Gestational Diabetes: After Your blood sugar will most likely return to normal after delivery. But gestational diabetes is a warning sign that you are at risk of getting diabetes later in life. You?re also more likely to have gestational diabetes with your next . But you can take steps to reduce these risks. Taking care of yourself Even if your blood sugar goes back to normal, you still need to take care of yourself. This will help prevent diabetes later in life. You'll need to: Keep your weight down. Eating food that is low in fat and sugar can help you control your weight. If you?re overweight, your risk of getting diabetes in 10 to 15 years more than doubles. Keeping your weight down also reduces your risk of gestational diabetes in your next . Get regular exercise. Exercise helps lower your blood sugar. It can also help you control your weight. Try to work up to at least 150 to 300 minutes of moderate exercise every week. This is at least 30 minutes each day. Have your blood sugar checked. Make an appointment to have your blood sugar checked 6 to 8 weeksafter delivery. If your blood sugar is still high, you may have type 2 diabetes. Your healthcare provider will tell you more about how to manage diabetes long-term. Have regular diabetes screenings. Have blood tests every year, or as often as your healthcare provider advises. Breastmilk is the best food for your baby. Giving only breastmilk is advised for at least your baby's first 6 months. may also help lower your blood sugar. Your healthcare provider can show you how to breastfeed. Be sure to eat healthy foods and drink extra water while you?re . You may find exercise easier right after . This is when your breasts may feel internet manager. Planning a future Your blood sugar needs to be back to normal before you get again. Have your blood sugar checked before you plan your next . And remember that it?s possible to get again soon after you give . Talk with your healthcare provider about the best method of control for you and your partner. Last Reviewed Date: 2021 00:00:00 [id number] The [employer]. All rights reserved. This information is not intended as a substitute for professional medical care. Always follow your healthcare professional's instructions. * Assessment & Plan Note - Deneen Martines CRNP - 03/03/2024 11:03 AM ESTAssociated Problem(s): Obesity in , antepartum CONSIDERATIONS: Discussed obstetrical risks associated with class [...] recommend weekly surveillance starting at 37 weeks. * Assessment & Plan Note - Deneen Martines CRNP - 03/03/2024 11:03 AM ESTAssociated Problem(s): Diet controlled gestational diabetes mellitus (GDM) in third trimester CONSIDERATIONS: Reviewed etiology and risks associated with gestational diabetes mellitus (GDM), including risks topregnancy, fetus, and maternal progression to Type 2 DM. Instructed on proper use of glucometer; supplies ordered, if indicated. Advised that life-long screening for diabetes is recommended every 1-3 years. RECOMMENDATIONS: Recommend monitoring blood sugars with daily fasting blood sugar (maintained at less than 95) and 1hour postprandial measurements (maintained at less than 140). Medications should be adjusted to maintain these target values. Report levels to MFM (Maternal- Medicine) weekly. Recommend nutrition consult with RDN (Registered Dietitian Alteration Manager). Lifestyle changes are also indicated including optimizing gestational weight gain and physical activity of 30 minutes per day, if not otherwise contraindicated in . Insulin is preferred if medications are indicated to optimize euglycemia. Metformin (preferred overglyburide) may also be used in some circumstances. [...] admission (or 6-8 weeks if not completed). documented in this encounter Plan of Treatment Upcoming Encounters Date Type Department Care Team (Late st Contact Info) Description 03/08/2024 8:00 AM EST Telemedicine Virtual, Nutrition Services [address] [place] [address] Sasha Watts, RDN [address] [place] [address] [place] [address] 03/16/2024 3:00 PM EST Office Visit Gynecology/Obstetics [place] [address] [place] [phone] Sasha Lima PA-C [address] [place] [address] 03/23/2024 8:15 AM EST Imaging Radiology, [place] [address] [place] [phone] 03/29/2024 11:45 AM EST Imaging Radiology, [facility] [address] [place] [address] 03/29/2024 1:45 PM EST Office Visit Gynecology/Obstetics [place] [address] [place] [phone] Sasha Lima PA-C [address] [place] [address] 04/12/2024 1:45 PM EST Office Visit Gynecology/Obstetics [place] [address] [place] [phone] Sasha Lima PA-C [address] [place] [address] 04/19/2024 1:45 PM EST Office Visit Gynecology/Obstetics [place] [address] [place] [phone] Sasha Lima PA-C [address] [place] [address] 04/26/2024 1:45 PM EST Office Visit Gynecology/Obstetics [place] [address] [place] [phone] Sasha Lima PA-C 68 [place] [address] 05/03/2024 1:45 PM EST Office Visit Gynecology/Obstetics [place] [address] [place] [phone] Sasha Lima PA-C 68 [place] [address] 05/10/2024 1:45 PM EST Office Visit Gynecology/Obstetics [place] [address] [place] [phone] Sasha Lima PA-C [address] [place] [address] 05/17/2024 1:45 PM EST Office Visit Gynecology/Obstetics [place] [address] [place] [phone] Sasha Lima PA-C [address] [place] [address] Scheduled Referrals Name Type Priority Associated Diagnoses Orde r Schedule REMOTE PATIENT MONITORING REFERRAL Referral Within 3 days (urgent) Supervision of high risk in third trimester Diet controlled gestational diabetes mellitus (GDM) in third trimester Ordered: 03/06/2024 Health Maintenance Due Date Last Done Comments [...] complication documented in this encounter Care Teams Grain Miller Helper Relationship Specialty Start Date End Date Sheila Hinton CRNP [address] [facility] [place] [address] PCP - General Nurse Practitioner 12/23/22 documented as of this encounter
--- OUTSIDE RECORDS SUMMARY | 2024-05-09 03:50 | External Medical Summary | Summary of Care ---
Author Name Unknown Organization [facility] Address [address] [place] [address] Phone [phone] Care Team Providers Care Canned Food Reconditioning Inspector Name Role Phone Sheila Hinton DEBRA Primary Care Provider [phone] Reason for Visit * Reason Comments Return Visit Encounter Details Date Type Department Care Team (Late st Contact Info) Description 03/16/2024 3:00 PM EST Office Visit Gynecology/Obstetics [place] [address] [place] [phone] Sasha Lima PA-C [address] [place] [address] Supervision of high-risk , third trimester*; Rh negative, antepartum; Diet controlled gestational diabetes mellitus (GDM) in third trimester; Obesity in , antepartum; Constipation during , antepartum Allergies No known active allergiesdocumented as of this encounter (statuses as of 03/18/2024) Medications ALBUTEROL 90 MCG/ACT IN AERS 2 puffs every 4 hrs. as needed for cough, wheeze, chest tightness or shortness of breath and prior exercise 1 6 /18/200 6 Active 27-0.8 MG Oral Tablet Take [...] mouth daily. 90 Tablet 2 4 Active AnagearTouch Verio In Vitro Strip (Glucose Blood)Indication s:Gestational [...] as of this encounter (statuses as of 03/18/2024) Active Problems Problem Noted Date Diagnosed Date Diet controlled gestational diabetes mellitus (GDM) in third trimester 03/01/2024 Overview (03/13/2024): Diagnosed at 28 weeks Nutrition referral ordered; [...] continue diet controlled 03/13/24: RPM reviewed; stable Assessment & Plan (03/03/2024 11:03 AM EST): [...] Recommend nutrition consult with RDN (Registered Dietitian Orchardist). Lifestyle changes are also indicated including optimizing [...] and she has an appt with the java security architect as well. We reviewed that additional u/s [...] as of this encounter (statuses as of 03/18/2024) Resolved Problems Problem Noted Date Diagnosed Date Resolved Date Migraine 12/23/2022 documented as of this encounter (statuses as of 03/18/2024) Immunizations Name Administration Dates Next Due COVID-19 mRNA, LNP-s, No Pre serve, 2-Dose Series (CELLFOR) 11/21/2020,10/31/2020 HEPATITIS B VACCINE, RECOMB, 20 MCG/ML, ADULT (HEPLISAV-B) 04/08/2023,03/04/2023 Pneumococcal Conjugate Vacci ne, 20-valent ([id number]) 12/23/2022 Seasonal Influenza Vac, Quad , Cell [...] money to get more. 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 BP 108/70 | Wt 116.4 kg (256 lb 9.6 oz) | LMP 08/05/2023 (Exact Date) | BMI 42.75 kg/m | BSA 2.31m Doing well. Denies vaginal bleeding, leaking of fluid, contractions, abdominal pain, or abnormal vaginal discharge. Denies headaches, blurry vision, or right upper quadrant pain. Patient states she feels good movement. Patient reports that she tossing and turning at night, but managing. Patient had vaginal pressure one time so far. Patient has some round ligament pain with change of position. Patient reports that she is managing overall fine with constipation with medication. Patient reports that she has blood vessel broken right eye. Physical Exam General: alert and oriented, no acute distress Pulmonary: normal respiratory effort, no accessory muscle use. Abdomen: gravid, soft, non-tender heart rate: 130's bpm OB [place] Problems (from 09/24/23 to present) Problem Noted [...] continue diet controlled 03/13/24: RPM reviewed; stable Supervision of high-risk , third trimester 12/28/2023 [...] No Pre-gravid BMI 39.15. Class 2 Plan: -RSV vaccine NEXT appointment. -GBS culture at 36 weeks. -Tdap vaccine completed. -Blood sugars well controlled with diet. Following with MATERNAL MEDICINE. -Rhogam given. Counseled patient to call triage/go to labor and delivery if she has any vaginal bleeding, leaking of fluid, vaginal pressure, 6 or more painful contractions in an hour, abdominal pain, decreased movements, headaches, blurry vision, or right upper quadrant pain. Patient verbalized understanding. RTO in 2 weeks for return appointment or sooner if any concerns. Sasha Larson PA-C' documented in this encounter Nursing Notes * Kath Fischer RN - 03/16/2024 3:08 PM EST Routine OB check. Denies questions or complaints. documented in this encounter Plan of Treatment Upcoming Encounters Date Type Department Care Team (Late st Contact Info) Description 03/28/2024 3:00 PM EST Telemedicine Virtual, Nutrition Services [facility] [address] [place] [address] Mirna Parra, LILLY [address] [place] [address] 03/29/2024 11:45 AM EST Imaging Radiology, [facility] [address] [place] [address] 03/29/2024 1:45 PM EST Office Visit Gynecology/Obstetics [place] [address] [place] [phone] Sasha Lima PA-C [address] [place] [address] 04/12/2024 1:45 PM EST Office Visit Gynecology/Obstetics [place] [address] [place] [address] Sasha Lima PA-C 68 [facility] [place] [address] 04/19/2024 1:45 PM EST Office Visit Gynecology/Obstetics [place] [address] [place] [address] Sasha Lima PA-C 68 [place] [address] 04/26/2024 1:45 PM EST Office Visit Gynecology/Obstetics [place] [address] [place] [phone] Sasha Lima PA-C [address] [facility] [place] [address] 05/10/2024 1:45 PM EST Office Visit Gynecology/Obstetics [place] [address] [place] [address] Sasha Lima PA-C 68 [facility] [place] [address] 05/17/2024 1:45 PM EST Office Visit Gynecology/Obstetics [place] [address] [place] [address] Sasha Lima PA-C [address] [facility] [place] [address] Health Maintenance Due Date Last Done Comments [...] condition or complication Constipation during , antepartum Gestational diabetes mellitus (GDM) in third trimester, gestational diabetes method of control unspecified- Primary documented in this encounter Care Teams Canned Food Reconditioning Inspector Relationship Specialty Start Date End Date Sheila Hinton CRNP [address] [place] [address] PCP - General Nurse Practitioner 12/23/22 documented as of this encounter"
--- OUTSIDE RECORDS SUMMARY | 2024-05-09 03:50 | External Medical Summary | Summary of Care ---
Author Name Unknown Organization [facility] Address [address] [place] [address] Phone [phone] Care Team Providers Care Adventure Education Teacher Name Role Phone Sheila Hinton DEBRA Primary Care Provider [phone] Reason for Visit * Reason Onset Date Comments Referral 02/25/2024 Encounter Details Date Type Department Care Team (Late st Contact Info) Description 02/25/2024 Telephone Picker And Sorter Load And Unload Obstetrics Maternal Medicine [facility] [address] [place] [phone] Nurse Referral Allergies No known active allergiesdocumented as of this encounter (statuses as of 02/25/2024) Medications ALBUTEROL 90 MCG/ACT IN AERS 2 [...] as of this encounter (statuses as of 02/25/2024) Active Problems Problem Noted Date Diagnosed Date [...] as of this encounter (statuses as of 02/25/2024) Resolved Problems Problem Noted Date Diagnosed Date Resolved Date Migraine 12/23/2022 documented as of this encounter (statuses as of 02/25/2024) Immunizations Name Administration Dates Next Due COVID-19 mRNA, LNP-s, No Pre serve, 2-Dose Series (This Week In) 11/21/2020,10/31/2020 HEPATITIS B VACCINE, RECOMB, 20 MCG/ML, ADULT (HEPLISAV-B) 04/08/2023,03/04/2023 Pneumococcal Conjugate Vacci ne, 20-valent ([id number]) 12/23/2022 Seasonal Influenza Vac, Quad , Cell [...] money to get more. 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 Video Appointment scheduled, Pt was unwilling to schedule Ultrasound and requested to keep her appts in [place]. I advised her to reach out to her OB because we typically do theultrasound in [facility] with Gestational Diabetes. Patient aware of date, time and location of Maternal Medicine appointment. * Telephone Encounter - Meena Schwarz MED ASSIST - 02/25/2024 11:29 AM EST Estimated Date of Delivery: 05/11/24 Please schedule for 45 MINUTE ADAPT WITH MACHINE TOOL TECHNICIAN INSTRUCTOR, in time frame of next available or at patient's earliest convenience at location [facility] with the indication of gestational diabetes . Please schedule anatomy within 1-2 weeks. Referring Provider: Sasha Bosch PA-C documented in this encounter Plan of Treatment Upcoming Encounters Date Type Department Care Team (Late st Contact Info) Description 03/01/2024 1:45 PM EST Office Visit Gynecology/Obstetics [place] [address] [place] [phone] Sasha Lima PA-C [address] [place] [address] 03/06/2024 8:10 AM EST Telemedicine Picker And Sorter Load And Unload Obstetric M[facility] [address] [place] [address] Deneen Martines CRNP [address] [place] [address] 03/08/2024 8:00 AM EST Telemedicine Virtual, Nutrition Services [address] [place] [address] Sasha Watts, LILLY [address] [place] [address] [place] [address] 03/16/2024 3:00 PM EST Office Visit Gynecology/Obstetics [address] [phone] Sasha Lima PA-C [address] [place] [address] 03/23/2024 8:15 AM EST Imaging Radiology, [address] [phone] 03/29/2024 1:45 PM EST Office Visit Gynecology/Obstetics [address] [phone] Sasha Lima PA-C [address] [place] [address] 04/12/2024 1:45 PM EST Office Visit Gynecology/Obstetics [place] [address] [place] [phone] Sasha Lima PA-C 68 [place] [address] 04/19/2024 1:45 PM EST Office Visit Gynecology/Obstetics [place] [address] [place] [phone] Sasha Lima PA-C 68 [place] [address] 04/26/2024 1:45 PM EST Office Visit Gynecology/Obstetics [place] [address] [place] [phone] Sasha Lima PA-C [address] [place] [address] 05/03/2024 1:45 PM EST Office Visit Gynecology/Obstetics [place] [address] [place] [phone] Sasha Lima PA-C [address] [place] [address] 05/10/2024 1:45 PM EST Office Visit Gynecology/Obstetics [place] [address] [place] [address] Sasha Lima PA-C [address] [place] [address] 05/17/2024 1:45 PM EST Office Visit Gynecology/Obstetics [place] [address] [place] [phone] Sasha Lima PA-C 68 [place] [address] Health Maintenance Due Date Last Done Comments [...] filedocumented as of this encounter Care Teams Adventure Education Teacher Relationship Specialty Start Date End Date Sheila Hinton CRNP [address] [place] [address] PCP - General Nurse Practitioner 12/23/22 documented as of this encounter
--- OUTSIDE RECORDS SUMMARY | 2024-05-09 03:50 | External Medical Summary | Summary of Care ---
Author Name Unknown Organization [facility] Address [address] [place] [address] Phone [phone] Care Team Providers Care Workers Compensation Legal Secretary Name Role Phone Sheila Hinton DEBRA Primary Care Provider [phone] Reason for Visit * Reason Onset Date Comments Referral 02/25/2024 Encounter Details Date Type Department Care Team (Late st Contact Info) Description 02/25/2024 Telephone [place] Manager Obstetrics Maternal Medicine [facility] [address] [facility] [place] [address] Nurse Referral Allergies No known active allergiesdocumented [...] mRNA, LNP-s, No Pre serve, 2-Dose Series (SugarSync) 11/21/2020,10/31/2020 HEPATITIS B VACCINE, RECOMB, 20 MCG/ML, ADULT (HEPLISAV-B) 04/08/2023,03/04/2023 Pneumococcal Conjugate Vacci ne, 20-valent ([id number]) 12/23/2022 Seasonal Influenza Vac, Quad , Cell [...] money to get more. 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 Appointment scheduled. Patient aware of date, time and location of Maternal Medicine appointment. * Telephone Encounter - Meena Schwarz MED ASSIST - 02/25/2024 11:29 AM EST Estimated Date of Delivery: 05/11/24 Please schedule for 45 MINUTE ADAPT WITH ANALYTIC PROGRAMMER, in time frame of next available or at patient's earliest convenience at location [facility] with the indication of gestational diabetes . Please schedule anatomy within 1-2 weeks. Referring Provider: Sasha Bosch PA-C documented in this encounter Plan of Treatment Upcoming Encounters Date Type Department Care Team (Late st Contact Info) Description 03/01/2024 1:45 PM EST Office Visit Gynecology/Obstetics [address] [place] [phone] Sasha Lima PA-C [address] [place] [address] 03/06/2024 8:10 AM EST Telemedicine [place] Manager Obstetric [facility] [address] [facility] [place] [address] Deneen Martines CRNP [address] [facility] [place] [address] 03/08/2024 8:00 AM EST Telemedicine Virtual, Nutrition Services [address] [facility] [address] [place] [address] Sasha Watts, RDN [address] [place] [address] [place] [address] 03/16/2024 3:00 PM EST Office Visit Gynecology/Obstetics [place] [phone] Sasha Lima PA-C [address] [place] [address] 03/23/2024 8:15 AM EST Imaging Radiology, [place] [address] [place] [address] 03/29/2024 1:45 PM EST Office Visit Gynecology/Obstetics [address] [address] Sasha Lima PA-C [address] [place] [address] 04/12/2024 1:45 PM EST Office Visit Gynecology/Obstetics [address] [address] Sasha Lima PA-C [address] [place] [address] 04/19/2024 1:45 PM EST Office Visit Gynecology/Obstetics [place] [address] [place] [phone] Sasha Lima PA-C [address] [place] [address] 04/26/2024 1:45 PM EST Office Visit Gynecology/Obstetics [place] [address] [place] [phone] Sasha Lima PA-C [address] [place] [address] 05/03/2024 1:45 PM EST Office Visit Gynecology/Obstetics [place] [address] [place] [phone] Sasha Lima PA-C [address] [place] [address] 05/10/2024 1:45 PM EST Office Visit Gynecology/Obstetics [place] [address] [place] [phone] Sasha Lima PA-C [address] [place] [address] 05/17/2024 1:45 PM EST Office Visit Gynecology/Obstetics [place] [address] [place] [phone] Sasha Lima PA-C [address] [place] [address] Health Maintenance Due Date Last Done Comments [...] filedocumented as of this encounter Care Teams Workers Compensation Legal Secretary Relationship Specialty Start Date End Date Sheila Hinton CRNP [address] [place] [address] PCP - General Nurse Practitioner 12/23/22 documented as of this encounter
--- OUTSIDE RECORDS SUMMARY | 2024-05-09 03:51 | External Medical Summary | Summary of Care ---
Author Name Unknown Organization [facility] Address [address] [place] [address] Phone [phone] Care Team Providers Care Truck Jumper Name Role Phone Sheila Hinton DEBRA Primary Care Provider [phone] Reason for Visit * Reason Comments Outpatient Testing Encounter Details Date Type Department Care Team (Late st Contact Info) Description 02/16/2024 1:20 PM [facility] Laboratory [facility] [phone] [facility] [address] [place] [phone] Supervision of high-risk , second trimester Allergies No known active allergiesdocumented as of this encounter (statuses as of 02/16/2024) Medications ALBUTEROL 90 MCG/ACT IN AERS 2 [...] by mouth daily. 90 Tablet 2 Active Hospital, Clinic, or Other Facility Administered Medication Ordered Dose Route Frequency Start Date End Date Status Rho D Immune Globulin (Rhophylac) inj 300 mcgIndications:Rh negative, antepartum 300 mcg IM ONCE 02/16/2024 02/16/2024 Ended documented as of this encounter (statuses as of 02/16/2024) Active Problems Problem Noted Date Diagnosed Date Supervision of high-risk , second trime ster 12/28/2023 Overview (01/23/2024): Estimated Date of Delivery: 05/11/24 Continue vitamin. O negative - needs Rhogam injection at 28 weeks and if patient has vaginal bleeding in . Rubella and varicella immune. Qnatal testing low risk. S/p anatomy ultrasound. Will order CBC, type and screen, syphilis screen, and one hour glucose test to be completed at 28 weeks. Tdap vaccine at 27 to 36 weeks. GBS culture at 36 weeks. RSV vaccine at 32 to 36 weeks. Completed influenza vaccine. Constipation during , antepartum 2023 Rh negative, antepartum 10/12/2023 Overview (10/16/2023): Rhogam given on 10/11/2023. Needs Rhogam injection at 28 weeks or if patient has any vaginal bleeding in . BMI 39.0-39.9,adult 10/12/2023 Overview (11/14/2023): Pre-gravid BMI [...] as of this encounter (statuses as of 02/16/2024) Resolved Problems Problem Noted Date Diagnosed Date Resolved Date Migraine 12/23/2022 documented as of this encounter (statuses as of 02/16/2024) Immunizations Name Administration Dates Next Due COVID-19 mRNA, LNP-s, No Pre serve, 2-Dose Series ([employer]) 11/21/2020,10/31/2020 HEPATITIS B VACCINE, RECOMB, 20 MCG/ML, ADULT (HEPLISAV-B) 04/08/2023,03/04/2023 Pneumococcal Conjugate Vacci ne, 20-valent ([id number]) 12/23/2022 Seasonal Influenza Vac, Quad , Cell [...] money to get more. 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 on file Not on file documented as of this encounter Plan of Treatment Upcoming Encounters Date Type Department Care Team (Late st Contact Info) Description 02/24/2024 10:30 AM EST Imaging Radiology, [place] [address] [place] [address] 03/01/2024 1:45 PM EST Office Visit Gynecology/Obstetics [place] [address] [place] [address] Sasha Lima PA-C [address] [place] [address] 03/16/2024 3:00 PM EST Office Visit Gynecology/Obstetics [place] [address] [place] [phone] Sasha Lima PA-C [address] [place] [address] 03/29/2024 1:45 PM EST Office Visit Gynecology/Obstetics [place] [address] [place] [phone] Sasha Lima PA-C [address] [place] [address] 04/12/2024 1:45 PM EST Office Visit Gynecology/Obstetics [place] [address] [place] [address] Sasha Lima PA-C [address] [place] [address] 04/19/2024 1:45 PM EST Office Visit Gynecology/Obstetics [place] [address] [place] [address] Sasha Lima PA-C [address] [place] [address] 04/26/2024 1:45 PM EST Office Visit Gynecology/Obstetics [place] [address] [place] [phone] Sasha Lima PA-C [address] [place] [address] 05/03/2024 1:45 PM EST Office Visit Gynecology/Obstetics [place] [address] [place] [phone] Sasha Lima PA-C [address] [place] [address] 05/10/2024 1:45 PM EST Office Visit Gynecology/Obstetics [place] [address] [place] [phone] Sasha Lima PA-C [address] [place] [address] 05/17/2024 1:45 PM EST Office Visit Gynecology/Obstetics [place] [address] [place] [address] Sasha Lima PA-C [address] [place] [address] Pending Results Name Type Priority Associated Diagnoses Date /Time CBC WITH WBC DIFFERENTIAL AND ANEMIA REFLEX WORKUP Lab Routine Supervision of high-risk , second trimester 02/16/2024 2:31 PM EST 50-G GESTATIONAL GLUCOSE, 1 HOUR Lab Routine Supervision of high-risk , second trimester 02/16/2024 2:31 PM EST TYPE AND SCREEN Lab Routine Supervision of high-risk , second trimester 02/16/2024 2:31 PM EST SYPHILIS ANTIBODY SCREEN WITH REFLEX TO RPR Lab Routine Supervision of high-risk , second trimester 02/16/2024 2:31 PM EST ANEMIA CBC Lab Routine Supervision of high-risk , second trimester 02/16/2024 2:31 PM EST DIFFERENTIAL, AUTOMATED Lab Routine Supervision of high-risk , second trimester 02/16/2024 2:31 PM EST ANEMIA REFLEX CHEMISTRY HOLD Lab Routine Supervision of high-risk , second trimester 02/16/2024 2:31 PM EST SYPHILIS ANTIBODY SCREEN Lab Routine Supervision of high-risk , second trimester 02/16/2024 2:31 PM EST Health Maintenance Due Date Last Done Comments [...] Visit Diagnoses Diagnosis Supervision of high-risk , second trimester documented in this encounter Care Teams Truck Jumper Relationship Specialty Start Date End Date Sheila Hinton CRNP [address] [address] PCP - General Nurse Practitioner 12/23/22 documented as of this encounter
--- OUTSIDE RECORDS SUMMARY | 2024-05-09 03:51 | External Medical Summary | Summary of Care ---
Author Name Unknown Organization [facility] Address [address] [place] [address] Phone [phone] Care Team Providers Care Drywall Taper Name Role Phone Sheila Hinton DEBRA Primary Care Provider [phone] Reason for Visit * Reason Comments Outpatient Testing Encounter Details Date Type Department Care Team (Late st Contact Info) Description 02/23/2024 8:30 AM [facility] Laboratory [facility] [phone] [place], [facility] [address] [place] [phone] Abnormal glucose tolerance in mother complicating Allergies No known active allergiesdocumented as of this encounter (statuses as of 02/23/2024) Medications ALBUTEROL 90 MCG/ACT IN AERS 2 [...] as of this encounter (statuses as of 02/23/2024) Active Problems Problem Noted Date Diagnosed Date [...] as of this encounter (statuses as of 02/23/2024) Resolved Problems Problem Noted Date Diagnosed Date Resolved Date Migraine 12/23/2022 documented as of this encounter (statuses as of 02/23/2024) Immunizations Name Administration Dates Next Due COVID-19 mRNA, LNP-s, No Pre serve, 2-Dose Series ([employer]) 11/21/2020,10/31/2020 HEPATITIS B VACCINE, RECOMB, 20 MCG/ML, ADULT (HEPLISAV-B) 04/08/2023,03/04/2023 Pneumococcal Conjugate Vacci ne, 20-valent ([email or web address]) 12/23/2022 Seasonal Influenza Vac, Quad , Cell [...] money to get more. 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 Not on file Not on file documented as of this encounter Plan of Treatment Upcoming Encounters Date Type Department Care Team (Late st Contact Info) Description 02/24/2024 10:30 AM EST Imaging Radiology, [place] [address] [place] [address] 03/01/2024 1:45 PM EST Office Visit Gynecology/Obstetics [place] [address] [place] [phone] Sasha Lima PA-C [address] [place] [address] 03/16/2024 3:00 PM EST Office Visit Gynecology/Obstetics [place] [address] [place] [phone] Sasha Lima PA-C [address] [place] [address] 03/29/2024 1:45 PM EST Office Visit Gynecology/Obstetics [place] [address] [place] [phone] Sasha Lima PA-C [address] [place] [address] 04/12/2024 1:45 PM EST Office Visit Gynecology/Obstetics [place] [address] [place] [phone] Sasha Lima PA-C [address] [place] [address] 04/19/2024 1:45 PM EST Office Visit Gynecology/Obstetics [place] [address] [place] [address] Sasha Lima PA-C [address] [place] [address] 04/26/2024 1:45 PM EST Office Visit Gynecology/Obstetics [place] [address] [place] [phone] Sasha Lima PA-C [address] [place] [address] 05/03/2024 1:45 PM EST Office Visit Gynecology/Obstetics [place] [address] [place] [phone] Sasha Lima PA-C [address] [place] [address] 05/10/2024 1:45 PM EST Office Visit Gynecology/Obstetics [place] [address] [place] [phone] Sasha Lima PA-C [address] [place] [address] 05/17/2024 1:45 PM EST Office Visit Gynecology/Obstetics [place] [address] [place] [phone] Sasha Lima PA-C [address] [place] [address] Pending Results Name Type Priority Associated Diagnoses Date /Time GESTATIONAL GLUCOSE TOLERANCE, 3 HOUR Lab Routine Abnormal glucose tolerance in mother complicating 02/23/2024 8:45 AM EST 100-G GESTATIONAL GLUCOSE, FASTING Lab Routine Abnormal glucose tolerance in mother complicating 02/23/2024 8:45 AM EST 100-G GESTATIONAL GLUCOSE, 1 HOUR Lab Routine Abnormal glucose tolerance in mother complicating 02/23/2024 9:46 AM EST 100-G GESTATIONAL GLUCOSE, 2 HOUR Lab Routine Abnormal glucose tolerance in mother complicating 02/23/2024 10:46 AM EST 100-G GESTATIONAL GLUCOSE, 3 HOUR Lab Routine Abnormal glucose tolerance in mother complicating 02/23/2024 11:44 AM EST Health Maintenance Due Date Last Done [...] as of this encounter Visit Diagnoses Diagnosis Abnormal glucose tolerance in mother complicating Abnormal maternal glucose tolerance, complicating , childbirth, or the puerperium, unspecified as to episode of care documented in this encounter Care Teams Drywall Taper Relationship Specialty Start Date End Date Sheila Hinton CRNP [address] [address] PCP - General Nurse Practitioner 12/23/22 documented as of this encounter
--- OUTSIDE RECORDS SUMMARY | 2024-05-09 03:51 | External Medical Summary ---
Author Name Unknown Address Unknown Organization K01:LABORATORY [facility] [place] - [address] [place] [address] Laboratory Report Ordering Provider Test Date Status JUAN SAM 02/23/2024 08:45:58 Final Based on ACOG guideline, ges tational diabetes mellitus is diagnosed when any of the following is met:
Fasting is greater than or equal to 95 mg/dL
1 hour is greater than or equal to 180 mg/dL
2 hour is greater than or equal to 155 mg/dL
3 hour is greater than or equal to 140 mg/dL Observation Date Value Abnormality Reference (Units ) Status Glucose, fasting 02/23/2024 08:45:58 96 Above high no rmal 70-94 (mg/dL) Final Performing Location LABORATORY [facility] [place] [place] - [address] [place] [address]
--- OUTSIDE RECORDS SUMMARY | 2024-05-09 03:51 | External Medical Summary | Summary of Care ---
Author Name Unknown Organization [facility] Address [address] [place] [address] Phone [phone] Care Team Providers Care Inorganic Chemistry Teacher Name Role Phone Sheila Hinton DEBRA Primary Care Provider [phone] Encounter Details Date Type Department Care Team (Late st Contact Info) Description 02/17/2024 Orders Only Gynecology/Obstetics [place] [address] [place] [phone] Sasha Lima PA-C [address] [place] [address] Abnormal glucose tolerance in mother complicating * Allergies No known active allergiesdocumented as of this encounter (statuses as of 02/17/2024) Medications ALBUTEROL 90 MCG/ACT IN AERS 2 [...] as of this encounter (statuses as of 02/17/2024) Active Problems Problem Noted Date Diagnosed Date [...] as of this encounter (statuses as of 02/17/2024) Resolved Problems Problem Noted Date Diagnosed Date Resolved Date Migraine 12/23/2022 documented as of this encounter (statuses as of 02/17/2024) Immunizations Name Administration Dates Next Due COVID-19 mRNA, LNP-s, No Pre serve, 2-Dose Series ([email or web address]) 11/21/2020,10/31/2020 HEPATITIS B VACCINE, RECOMB, 20 MCG/ML, ADULT (HEPLISAV-B) 04/08/2023,03/04/2023 Pneumococcal Conjugate Vacci ne, 20-valent ([email or web address]) 12/23/2022 Seasonal Influenza Vac, Quad , Cell [...] money to get more. 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 on file Not on file documented as of this encounter Plan of Treatment Upcoming Encounters Date Type Department Care Team (Late st Contact Info) Description 02/24/2024 10:30 AM EST Imaging Radiology, [place] [address] [place] [address] 03/01/2024 1:45 PM EST Office Visit Gynecology/Obstetics [place] [address] [place] [address] Sasha Lima PA-C [address] [place] [address] 03/16/2024 3:00 PM EST Office Visit Gynecology/Obstetics [place] [address] [place] [phone] Sasha Lima PA-C [address] [place] [address] 03/29/2024 1:45 PM EST Office Visit Gynecology/Obstetics [place] [address] [place] [address] Sasha Lima PA-C [address] [place] [address] 04/12/2024 1:45 PM EST Office Visit Gynecology/Obstetics [place] [address] [place] [address] Sasha Lima PA-C [address] [place] [address] 04/19/2024 1:45 PM EST Office Visit Gynecology/Obstetics [place] [address] [place] [address] Sasha Lima PA-C [address] [place] [address] 04/26/2024 1:45 PM EST Office Visit Gynecology/Obstetics [place] [address] [place] [address] Sasha Lima PA-C [address] [place] [address] 05/03/2024 1:45 PM EST Office Visit Gynecology/Obstetics [place] [address] [place] [phone] Sasha Lima PA-C [address] [place] [address] 05/10/2024 1:45 PM EST Office Visit Gynecology/Obstetics [place] [address] [place] [phone] Sasha Lima PA-C [address] [place] [address] 05/17/2024 1:45 PM EST Office Visit Gynecology/Obstetics [place] [address] [place] [phone] Sasha Lima PA-C [address] [place] [address] Scheduled Orders Name Type Priority Associated Diagnoses Orde r Schedule GESTATIONAL GLUCOSE TOLERANCE, 3 HOUR Lab Routine Abnormal glucose tolerance in mother complicating Expected: 02/17/2024, Expires: 02/16/2025 Health Maintenance Due Date Last Done Comments [...] Diagnosis Abnormal glucose tolerance in mother complicating - Primary Abnormal maternal glucose tolerance, complicating , childbirth, or the puerperium, unspecified as to episode of care documented in this encounter Care Teams Inorganic Chemistry Teacher Relationship Specialty Start Date End Date Sheila Hinton CRNP [address] [address] PCP - General Nurse Practitioner 12/23/22 documented as of this encounter
--- OUTSIDE RECORDS SUMMARY | 2024-05-09 03:51 | External Medical Summary ---
Author Name Unknown Address Unknown Organization K01:LABORATORY [facility] [place] [facility] - [address] [address] Laboratory Report Ordering Provider Test Date Status JUAN SAM 02/16/2024 14:31:26 Final Observation Date Value Abnormality Reference (Units ) Status ABO 02/16/2024 14:31:26 O Final RH 02/16/2024 14:31:26 Negative Final RED BLOOD CELL ANTIBODY SCREEN 02/16/2024 14:31:26 Negative Final SPECIMEN EXPIRATION DATE 02/16/2024 14:31:26 02/19/2024 23:59 Final Performing Location LAB[facility]ATORY [facility] - [address] [address]
--- OUTSIDE RECORDS SUMMARY | 2024-05-09 03:51 | External Medical Summary | Summary of Care ---
Author Name Unknown Organization [facility] Address [address] [place] [address] Phone [phone] Care Team Providers Care Pulmonary Function Technologist Name Role Phone Sheila Hinton DEBRA Primary Care Provider [phone] Reason for Visit * Reason Comments Return Visit Encounter Details Date Type Department Care Team (Late st Contact Info) Description 02/16/2024 1:45 PM EST Office Visit Gynecology/Obstetics [place] [address] [place] [phone] Sasha Lima PA-C [address] [place] [address] Supervision of high-risk , second trimester*; Rh negative, antepartum; Constipation during , antepartum; BMI 39.0-39.9,adult; Low-lying placenta; Need for prophylactic vaccination with combined lwtvfgphey-ybvncfp-gy rtussis (DTP) vaccine Allergies No known active allergiesdocumented as of this encounter (statuses as of 02/18/2024) Medications ALBUTEROL 90 MCG/ACT IN AERS 2 [...] as of this encounter (statuses as of 02/18/2024) Active Problems Problem Noted Date Diagnosed Date [...] as of this encounter (statuses as of 02/18/2024) Resolved Problems Problem Noted Date Diagnosed Date Resolved Date Migraine 12/23/2022 documented as of this encounter (statuses as of 02/18/2024) Immunizations Name Administration Dates Next Due COVID-19 mRNA, LNP-s, No Pre serve, 2-Dose Series ([employer]) 11/21/2020,10/31/2020 HEPATITIS B VACCINE, RECOMB, 20 MCG/ML, ADULT (HEPLISAV-B) 04/08/2023,03/04/2023 Pneumococcal Conjugate Vacci ne, 20-valent ([email or web address]) 12/23/2022 Seasonal Influenza Vac, Quad , Cell [...] money to get more. 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 BP 114/62 | Wt 116.2 kg (256 lb 3.2 oz) | LMP 08/05/2023 (Exact Date) | BMI 42.69 kg/m | BSA 2.31m Doing well. Denies vaginal bleeding, leaking of fluid, vaginal pressure, contractions, abdominal pain, or abnormal vaginal discharge. Denies headaches, blurry vision, or right upper quadrant pain. Patient states she feels good movement. Patient reports that she has some tenderness of the bottom of her feet if not wearing her compression stockings. Patient reports she is feeling well if wearing her compression stockings. Patient has some constipation even with taking Colace. Patient reports that abdomen feels tight after eating. Patient denies contractions. Physical Exam General: alert and oriented, no acute distress Pulmonary: normal respiratory effort, no accessory muscle use. Abdomen: gravid, soft, non-tender heart rate: 140's bpm [facility] Problems (from 09/24/23 to present) Problem Noted Diagnosed Resolved Supervision of high-risk , second trimester 12/28/2023 by Sasha Lima PA-C No Estimated Date of Delivery: 05/11/24 Continue vitamin. O negative - Rhogam given on 02/16/2024. Rubella and varicella immune. Qnatal testing low risk. S/p anatomy ultrasound. Doing lab work on 02/16/2024: CBC, type and screen, syphilis screen, and one hour glucose test. Tdap vaccine completed. GBS culture at 36 [...] 39 weeks. Patient declines MATERNAL MEDICINE referral. Plan: -Advised patient to continue wearing compression stockings. -May continue Colace and use Miralax as needed. -Advised small frequent meals. Suspect feeling full due to . Patient is not having contractions. Patient aware of labor symptoms to monitor for. -Growth ultrasounds every 4 weeks. -Low lying placenta: Has follow up ultrasound scheduled. Pelvic rest precautions. -Rhogam given today. Tdap given today. -Completed 28 week lab work today. Counseled patient to call triage/go to labor [...] Nursing Notes * Elana Esparza RN - 02/16/2024 2:39 PM EST Pre-Administration Time Out Procedure Performed: Yes Patient Identified (Ask Name/Date of ): Yes Does the patient have a fever greater than 101 degrees today? No Patient allergic to latex? No Has the patient ever fainted after receiving an injection? No VFC Stock: No Immunization(s) verified: Yes, Immunization Name: Tdap (Adacel) Injection(s) verified: Yes, Injection Name: Rhogam Verified Side and Site: Yes Verified Shot(s) with Parent(s)/Patient: Yes Patient tolerated injections well and denies any concerns following injections. * Leora Monroy LPN - 02/16/2024 1:39 PM EST Pain on the bottoms of her feet, improved with compression stockings. Notes tightening in her abdomen when eating. Patient also having some concerns with constipation documented in this encounter Plan of Treatment Upcoming Encounters Date Type Department Care Team (Late st Contact Info) Description 02/24/2024 10:30 AM EST Imaging Radiology, [address] [phone] 03/01/2024 1:45 PM EST Office Visit Gynecology/Obstetics [address] [phone] Sasha Lima PA-C [address] [place] [address] 03/16/2024 3:00 PM EST Office Visit Gynecology/Obstetics [facility] [address] [place] [address] Sasha Lima PA-C [address] [place] [address] 03/29/2024 1:45 PM EST Office Visit Gynecology/Obstetics [facility] [address] [place] [address] Sasha Lima PA-C [address] [place] [address] 04/12/2024 1:45 PM EST Office Visit Gynecology/Obstetics [facility] [address] [place] [address] Sasha Lima PA-C [address] [place] [address] 04/19/2024 1:45 PM EST Office Visit Gynecology/Obstetics [facility] [address] [place] [address] Sasha Lima PA-C [address] [place] [address] 04/26/2024 1:45 PM EST Office Visit Gynecology/Obstetics [facility] [address] [place] [address] Sasha Lima PA-C [address] [place] [address] 05/03/2024 1:45 PM EST Office Visit Gynecology/Obstetics [facility] [address] [place] [address] Sasha Lima PA-C [address] [place] [address] 05/10/2024 1:45 PM EST Office Visit Gynecology/Obstetics [facility] [address] [place] [phone] Sasha Lima PA-C [address] [place] [address] 05/17/2024 1:45 PM EST Office Visit Gynecology/Obstetics [facility] [address] [place] [phone] Sasha Lima PA-C [address] [place] [address] Health Maintenance Due Date Last Done Comments [...] Diagnoses Diagnosis Supervision of high-risk , second trimester- Primary Rh negative, antepartum Rhesus isoimmunization affecting management of mother, antepartum condition Constipation during , antepartum BMI 39.0-39.9,adult Body Mass Index 39.0-39.9, adult Low-lying placenta Hemorrhage from placenta previa, unspecified as to episode of care Need for prophylactic vaccination with combined adzwwkvykg-jqlmxxw-fyekzjpst (DTP) vaccine documented in this encounter Administered Medications Inactive Administered Medications - up to 3 most recent administrations Medication Order MAR Action Action Date Dose Rate Site Rho D Immune Globulin (Rhophylac) inj 300 mcg 300 mcg, Intramuscular, ONCE, On Wed02/16/24 at 1445, For 1 dose, Do not administer until type and screen has been collected! 1 MCG = 5 INTERNATIONAL UNITSIndications:Rh negative, antepartum Given 02/16/2024 2:43 PM EST 300 mcg Dorsogluteal Right documented in this encounter Care Teams Pulmonary Function Technologist Relationship Specialty Start Date End Date Sheila Hinton CRNP [address] [place] [address] PCP - General Nurse Practitioner 12/23/22 documented as of this encounter"
--- OUTSIDE RECORDS SUMMARY | 2024-05-09 03:51 | External Medical Summary ---
Author Name Unknown Address Unknown Organization K01:LABORATORY [facility] [place] - [address] [place] [address] Laboratory Report Ordering Provider Test Date Status JUAN SAM 02/23/2024 09:46:19 Final Observation Date Value Abnormality Reference (Units ) Status Glucose [Mass/volume] in Serum or Plasma --1 hour post dose glucose 02/23/2024 09:46:19 180 Above high normal 70-179 (mg/dL) Final Performing Location LABORATORY [facility] [place] - [address] [place] [address]
--- OUTSIDE RECORDS SUMMARY | 2024-05-09 03:51 | External Medical Summary ---
Author Name Unknown Address Unknown Organization K01:[facility] [place] [facility] [address] [facility] [address] Laboratory Report Ordering Provider Test Date Status JUAN SAM 02/16/2024 14:31:26 Final Observation Date Value Abnormality Reference (Units ) Status Glucose [Moles/volume] in Serum or Plasma --1 hour post 50 g glucose PO 02/16/2024 14:31:26 139 Above high normal 70-129 (mg/dL) Final Performing Location [facility] [place] [address] [place] [address]
--- OUTSIDE RECORDS SUMMARY | 2024-05-09 03:51 | External Medical Summary | Summary of Care ---
Author Name Unknown Organization [facility] Address [address] [place] [address] Phone [phone] Care Team Providers Care Glass Grinder Name Role Phone Sheila Hinton DEBRA Primary Care Provider [phone] Reason for Visit * Reason Onset Date Comments Appointment 01/29/2024 Encounter Details Date Type Department Care Team ([facility] st Contact Info) Description 01/29/2024 Telephone Gynecology/[facility]stetics [facility] [address] [place] [phone] Sasha Lima PA-C [address] [place] [address] Appointment Allergies No known active allergiesdocumented as of this encounter (statuses as of 01/31/2024) Medications ALBUTEROL 90 MCG/ACT IN AERS 2 [...] as of this encounter (statuses as of 01/31/2024) Active Problems Problem Noted Date Diagnosed Date [...] as of this encounter (statuses as of 01/31/2024) Resolved Problems Problem Noted Date Diagnosed Date Resolved Date Migraine 12/23/2022 documented as of this encounter (statuses as of 01/31/2024) Immunizations Name Administration Dates Next Due COVID-19 mRNA, LNP-s, No Pre serve, 2-Dose Series ([employer]) 11/21/2020,10/31/2020 HEPATITIS B VACCINE, RECOMB, 20 MCG/ML, ADULT (HEPLISAV-B) 04/08/2023,03/04/2023 Pneumococcal Conjugate Vacci ne, 20-valent ([id number]) 12/23/2022 Seasonal Influenza Vac, Quad , Cell culture, with Preserve, 6 mon and above, (Flucelvax) 02/06/2019,01/31/2018,12/17/2016 Seasonal Influenza Virus Vac cine, Unspecified Formulation 01/31/2018,12/17/2016 Seasonal Influenza, PF, 6 M & above, IM , (FluLaval or Fluzone) 12/23/2022 Seasonal Influenza, Trivalen t, (IIV3), PF, (Fluzone) 12/22/2023 TDAP, Age 7 and older, IM (Adacel) 08/31/2018, documented as of this encounter Social History [...] money to get more. 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 Thank you. documented in this encounter Plan of Treatment Upcoming Encounters Date Type Department Care Team (Late st Contact Info) Description 02/16/2024 1:20 PM EST Laboratory [facility], [address] [phone] [facility] [address] [place] [address] 02/16/2024 1:45 PM EST Office Visit Gynecology/[facility]st[facility] [address] [place] [phone] Sasha Lima PA-C [address] [place] [address] 03/01/2024 1:45 PM EST Office Visit Gynecology/Obst[facility] [address] [place] [address] Sasha Lima PA-C [address] [place] [address] 03/16/2024 3:00 PM EST Office Visit Gynecology/Obstetics [facility] [address] [place] [address] Sasha Lima PA-C [address] [place] [address] 03/29/2024 1:45 PM EST Office Visit Gynecology/Obstetics [facility] [address] [place] [phone] Sasha Lima PA-C [address] [place] [address] 04/12/2024 1:45 PM EST Office Visit Gynecology/Obstetics [facility] [address] [place] [phone] Sasha Lima PA-C [address] [place] [address] 04/19/2024 1:45 PM EST Office Visit Gynecology/Obstetics [facility] [address] [place] [phone] Sasha Lima PA-C [address] [place] [address] 04/26/2024 1:45 PM EST Office Visit Gynecology/[facility]stetics [facility] [address] [place] [phone] Sasha Lima PA-C [address] [place] [address] 05/03/2024 1:45 PM EST Office Visit Gynecology/[facility]stetics [facility] [address] [place] [phone] Sasha Lima PA-C [address] [place] [address] 05/10/2024 1:45 PM EST Office Visit Gynecology/Obstetics [facility] [address] [place] [phone] Sasha Lima PA-C [address] [place] [address] 05/17/2024 1:45 PM EST Office Visit Gynecology/Obstetics [facility] [address] [place] [phone] Sasha Lima PA-C [address] [place] [address] Scheduled Orders Name Type Priority Associated Diagnoses Orde r Schedule US PREG FOLLOW-UP EACH FETUS Medical Imaging Routine Obesity during Low-lying placenta related conditions, unspecified, second trimester Expected: 02/24/2024 (Approximate), Expires: 07/28/2024 Health Maintenance Due Date Last Done Comments HPV/Co-Test 09/20/2023 COVID-19 Vaccine ( season) 2023 11/21/2020, 10/31/2020 Depression Screening 12/24/2023 12/23/2022 Cervical Cancer Screening 01/20/2026 Pap Smear 01/20/2026 01/20/2023 DTap/Tdap Vaccines (3 - Td or Tdap) 08/31/2028 08/31/2018, 2004 Pneumococcal Vaccine: Pediatrics (0 to [...] as of this encounter Visit Diagnoses Diagnosis Obesity during - Primary Low-lying placenta Hemorrhage from placenta previa, unspecified as to episode of care related conditions, unspecified, second trimester documented in this encounter Care Teams Glass Grinder Relationship Specialty Start Date End Date Sheila Hinton CRNP [address] [facility] [place] [address] PCP - General Nurse Practitioner 12/23/22 documented as of this encounter
--- OUTSIDE RECORDS SUMMARY | 2024-05-09 03:51 | External Medical Summary | Summary of Care ---
Author Name Unknown Organization [facility] Address [address] [place] [address] Phone [phone] Care Team Providers Care Log Sorter Name Role Phone Sheila Hinton DEBRA Primary Care Provider [phone] Reason for Visit * Reason Comments Outpatient Testing Encounter Details Date Type Department Care Team (Late st Contact Info) Description 02/23/2024 8:30 AM [facility] [phone] [place], [facility] [address] [place] [address] Abnormal glucose tolerance in mother complicating Allergies [...] mRNA, LNP-s, No Pre serve, 2-Dose Series ([employer]) 11/21/2020,10/31/2020 HEPATITIS B VACCINE, RECOMB, 20 MCG/ML, ADULT (HEPLISAV-B) 04/08/2023,03/04/2023 Pneumococcal Conjugate Vacci ne, 20-valent ([id number]) 12/23/2022 Seasonal Influenza Vac, Quad , Cell [...] money to get more. 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 file Not on file documented as of this encounter Plan of Treatment Upcoming Encounters Date Type Department Care Team (Late st Contact Info) Description 02/24/2024 10:30 AM EST Imaging Radiology, [facility] [address] [place] [phone] 03/01/2024 1:45 PM EST Office Visit Gynecology/Obstetics [place] [address] [place] [phone] Sasha Lima PA-C [address] [place] [address] 03/16/2024 3:00 PM EST Office Visit Gynecology/Obstetics [place] [address] [place] [phone] Sasha Lima PA-C [address] [place] [address] 03/29/2024 1:45 PM EST Office Visit Gynecology/Obstetics [place] [address] [place] [phone] Sasha Lima PA-C [address] [place] [address] 04/12/2024 1:45 PM EST Office Visit Gynecology/Obstetics [place] [address] [place] [phone] Sasha Lima PA-C [address] [place] [address] 04/19/2024 1:45 PM EST Office Visit Gynecology/Obstetics [place] [address] [place] [address] Sasha Lima PA-C [address] [place] [address] 04/26/2024 1:45 PM EST Office Visit Gynecology/Obstetics [place] [address] [place] [phone] Sasha Lima PA-C [address] [place] [address] 05/03/2024 1:45 PM EST Office Visit Gynecology/Obstetics [place] [address] [place] [phone] Sasha Lima PA-C [address] [place] [address] 05/10/2024 1:45 PM EST Office Visit Gynecology/Obstetics [place] [address] [place] [phone] Sasha Lima PA-C [address] [facility] [place] [address] 05/17/2024 1:45 PM EST Office Visit Gynecology/Obstetics [place] [address] [place] [phone] Sasha Lima PA-C [address] [place] [address] Health Maintenance Due Date Last Done Comments [...] GLUCOSE, 3 HOUR (02/23/2024 11:44 AM EST) [facility] 100-g Gestational Glucose, 3 Hour 51(L) 70 - 139 mg/dL 02/23/2024 8:40 PM EST LABORATORY C Blood Venous blood specimen / Unknown Venipuncture / Unknown 02/23/2024 11:44 AM EST 02/23/2024 11:44 AM EST Sasha DURAN-Darlene LAB BLOOD ORDERAB LES Final Result Performing Organization Address City/[facility]/ZIP Co de Phone Number [facility] [address] [place] [address] * 100-G GESTATIONAL GLUCOSE, 2 HOUR (02/23/2024 10:46 AM EST) 100-g Gestational Glucose, 2 Hour 133 70 - 154 mg/dL 02/23/2024 8:21 PM EST LABORATORY [facility] Blood Venous blood specimen / Unknown Venipuncture / Unknown 02/23/2024 10:46 AM EST 02/23/2024 10:46 AM EST Sasha DURAN-C LAB BLOOD ORDERAB LES Final Result Performing Organization Address [facility] Co de Phone Number [facility] [address] [place] [address] * (ABNORMAL) 100-G GESTATIONAL GLUCOSE, 1 HOUR (02/23/2024 9:46 AM EST) 100-g Gestational Glucose, 1 Hour 180(H) 70 - 179 mg/dL 02/23/2024 5:48 PM EST LABORATORY [facility] Blood Venous blood specimen / Unknown Venipuncture / Unknown 02/23/2024 9:46 AM EST 02/23/2024 9:46 AM EST Sasha DURAN-C LAB BLOOD ORDERAB LES Final Result Performing Organization Address City/[facility]/ZIP Co de Phone Number [facility] [address] [place] [address] * (ABNORMAL) 100-G GESTATIONAL GLUCOSE, FASTING (02/23/2024 8:45 AM EST) 100-g Gestational Glucose, Fasting 96(H) 70 - 94 mg/dL 02/23/2024 8:24 PM EST LABORATORY [facility] Blood Venous blood specimen / Unknown Venipuncture / Unknown 02/23/2024 8:45 AM EST 02/23/2024 8:45 AM EST Narrative [facility] - 02/23/2024 8:24 PM EST Based on ACOG guideline, gestational diabetes mellitus is diagnosed when any of the following is met: Fasting is greater than or equal to 95 mg/dL 1 hour is greater than or equal to 180 mg/dL 2 hour is greater than or equal to 155 mg/dL 3 hour is greater than or equal to 140 mg/dL us Sasha Bosch PA-C LAB BLOOD ORDERAB LES Final Result [facility] [address] [facility] [place] [phone] documented in this encounter Visit Diagnoses Diagnosis Abnormal glucose tolerance in mother complicating Abnormal maternal glucose tolerance, complicating , childbirth, or the puerperium, unspecified as to episode of care documented in this encounter Care Teams Log Sorter Relationship Specialty Start Date End Date Sheila Hinton CRNP [address] [facility] [place] [address] PCP - General Nurse Practitioner 12/23/22 documented as of this encounter
--- OUTSIDE RECORDS SUMMARY | 2024-05-09 03:51 | External Medical Summary ---
Author Name Unknown Address Unknown Organization K01:[facility]ORY [facility] [facility] [address] Laboratory Report Ordering Provider Test Date Status JUAN SAM 02/16/2024 14:31:26 Final Observation Date Value Abnormality Reference (Units ) Status WBC, Total 02/16/2024 14:31:26 11.82 Above high normal 4 .00-10.80 (K/uL) Final RBC 02/16/2024 14:31:26 3.93 3.85-5.15 (M/uL) Final Hemoglobin 02/16/2024 14:31:26 12.0 12.0-15.3 (g/dL) Final Anemia reflex testing trigge rs on a HGB < 12.0 for Females and HGB < 13.0 for Males in accordance with the WHO Anemia Guidelines
Anemia reflex testing triggers on a HGB < 12.0 for Females and HGB < 13.0 for Males in accordance with the WHO Anemia Guidelines HCT 02/16/2024 14:31:26 37.5 36.0-45.2 (%) Final MCV 02/16/2024 14:31:26 95.4 81.5-97.5 (fL) Final MCH 02/16/2024 14:31:26 30.5 27.0-34.0 (pg) Final MCHC 02/16/2024 14:31:26 32.0 32.0-36.0 (g/dL) Final RDW 02/16/2024 14:31:26 13.2 11.5-15.5 (%) Final Platelets 02/16/2024 14:31:26 203 140-400 (K /uL) Final MPV 02/16/2024 14:31:26 10.7 6.6-11.1 ( fL) Final Nucleated erythrocytes/100 leukocytes [Ratio] in Blood by Automated count 02/16/2024 14:31:26 0 <=0 (/100 WBCs) [facility] Performing Location LABORATORY [facility] - [address] [facility] [address]
--- OUTSIDE RECORDS SUMMARY | 2024-05-09 03:51 | External Medical Summary | Summary of Care ---
Author Name Unknown Organization [facility] Address [address] [place] [address] Phone [phone] Care Team Providers Care Finance Business Manager Name Role Phone Sheila Hinton DEBRA Primary Care Provider [phone] Reason for Visit * Reason Comments Return Visit Encounter Details Date Type Department Care Team (Late st Contact Info) Description 01/19/2024 1:45 PM EDT Office Visit Gynecology/Obstetics [facility] [address] [place] [phone] Sasha Lima PA-C [address] [place], [place] [phone] Supervision of high-risk , second trimester*; Rh negative, antepartum; BMI 39.0-39.9,adult; Constipation during , antepartum; Pain of left calf Allergies No known active allergiesdocumented as of this encounter (statuses as of 01/23/2024) Medications Medication Sig Dispensed Refills Start Date End Date Status ALBUTEROL 90 MCG/ACT IN AERS 2 puffs every 4 hrs. as needed for cough, wheeze, chest tightness or shortness of breath and prior exercise 1 6 10/06/2005 Active 27-0.8 MG Oral Tablet Take 1 Tablet by mouth daily at noon. Active Vitamin B-6 25 MG Oral TabletIndications:N ausea and vomiting during Take 1 Tablet by mouth every 6 hours as needed for Nausea. 120 Tablet 1 10/12/2023 Active Docusate Sodium 100 MG Oral Capsule (Colace)Indications :Constipation during , antepartum Take 1 Capsule by mouth daily as needed for Constipation. 30 Capsule 2 10/12/2023 Active Triamcinolone Acetonide 0.1 % External Ointment (Aristocort) Apply topically to affected area 2 times a day. To affected area. 15 g 1 10/12/2023 Active Doxylamine Succinate (Sleep) 25 MG Oral Tablet (Unisom)Indications :Nausea and vomiting during Take 0.5 Tablets by mouth at bedtime as needed for Nausea. 30 Tablet 1 10/14/2023 Active Aspirin 81 MG Oral Tablet ChewableIndications :Supervision of high-risk , second trimester Take 1 Tablet by mouth daily. 90 Tablet 2 12/22/2023 Active documented as of this encounter (statuses as of 01/23/2024) Active Problems Problem Noted Date Diagnosed Date Supervision of high-risk , second trime ster 12/28/2023 Overview: Estimated Date of Delivery: 05/11/24 Continue vitamin. [...] , antepartum 2023 Rh negative, antepartum 10/12/2023 Overview: Rhogam given on 10/11/2023. Needs Rhogam injection at 28 weeks or if patient has any vaginal bleeding in . BMI 39.0-39.9,adult 10/12/2023 Overview: Pre-gravid BMI 39.15. 11 to 20 lbs [...] as of this encounter (statuses as of 01/23/2024) Resolved Problems Problem Noted Date Diagnosed Date Resolved Date Migraine 12/23/2022 documented as of this encounter (statuses as of 01/23/2024) Immunizations Name Administration Dates Next Due COVID-19 mRNA, LNP-s, No Pre serve, 2-Dose Series ([employer]) 11/21/2020,10/31/2020 HEPATITIS B VACCINE, RECOMB, 20 MCG/ML, ADULT (HEPLISAV-B) 04/08/2023,03/04/2023 Pneumococcal Conjugate Vacci ne, 20-valent ([id number]) 12/23/2022 Seasonal Influenza Vac, Quad , Cell [...] money to get more. Never true 12/09/2023 [place] Depression Scale Answer Date Recorded [place] Depression Scale Total 5 10/12/2023 The thought [...] Assigned at Female 12/18/2022 11:41 AM EDT Gender Identity Female 12/18/2022 11:41 AM EDT Sexual Orientation Straight 12/18/2022 11 :41 AM EDT Job Start Date Occupation Industry Not on file Not on file Not on file documented as of this encounter Last Filed Vital Signs Vital Sign Reading Time Taken Comments Blood Pressure 116/64 01/19/2024 1:52 PM EDT Pulse - - Temperature - - Respiratory Rate - - Oxygen Saturation - - Inhaled Oxygen Concentration - - Weight 112.8 kg (248 lb 9.6 oz) 01/19/2024 1:52 PM EDT Height - - Body Mass Index 41.42 12/23/2022 9:07 AM EDT documented in this encounter Progress Notes * Sasha Lima PA-C - 01/19/2024 1:51 PM EDT Sharee Whitfield presents for visit at 23w6d. BP 116/64 | Wt 112.8 kg (248 lb 9.6 oz) | LMP 08/05/2023 (Exact Date) | BMI 41.42 kg/m | BSA 2.27m Doing well. Denies vaginal bleeding, leaking of fluid, vaginal pressure, contractions, abdominal pain, or abnormal vaginal discharge. Denies headaches, blurry vision, or right upper quadrant pain. Patient states she feels good movement. Patient denies concerns with nausea - mostly resolved. Patient is taking medication as needed for constipation. Physical Exam General: alert and oriented, no acute distress Pulmonary: normal respiratory effort, no accessory muscle use. Abdomen: gravid, soft, non-tender heart rate: 150's bpm Extremities: Negative Steffen's sign bilaterall. Left calf pain. [facility] Problems (from 09/24/23 to present) Problem Noted Resolved Supervision of high-risk , second trimester [...] 32 to 36 weeks. Completed influenza vaccine. Rh negative, antepartum 10/12/2023 by Sasha Lima PA-C No Rhogam given on 10/11/2023. Needs Rhogam injection at 28 weeks or if patient has any vaginal bleeding in . BMI 39.0-39.9,adult 10/12/2023 by Sasha Lima PA-C No Pre-gravid BMI 39.15. 11 to 20 lbs weight gain during . Baseline pre-eclampsia lab work completed. Passed early one hour glucose test. Growth ultrasound every 4 weeks. NST's weekly at 34 weeks. Delivery at 39 weeks. Patient declines MATERNAL MEDICINE referral. Plan: -Ordered lab work to be completed at 28 weeks. -Taking aspirin 81 mg daily. -Following with MATERNAL MEDICINE regarding low lying placenta - has appointment scheduled. -Needs Rhogam injection at 28 weeks. -Lower extremity pain: Advised urgent venous duplex. Patient agrees. Order placed. Counseled patient to call triage/go to labor and delivery if she has any vaginal bleeding, leaking of fluid, vaginal pressure, four or more painful contractions in an hour, abdominal pain, decreased movements, headaches, blurry vision, or right upper quadrant pain. Patient verbalized understanding. RTO in 4 weeks for a return appointment or sooner if any concerns. Sasha Larson PA-C documented in this encounter Nursing Notes * Leora Monroy LPN - 01/19/2024 1:52 PM EDT Routine OB check. Denies questions or complaints. documented in this encounter Plan of Treatment Upcoming Encounters Date Type Department Care Team (Late st Contact Info) Description 01/27/2024 9:45 AM EST Imaging Radiology, [address] [phone] 02/16/2024 1:20 PM EST Laboratory Laboratory Patient [facility] [place], [address] [phone] [place], [facility] [address] [place] [address] 02/16/2024 1:45 PM EST Office Visit Gynecology/Obstetics [facility] [address] [place] [phone] Sasha Lima PA-C [address] [place] [address] 03/01/2024 1:45 PM EST Office Visit Gynecology/Obstetics [facility] [address] [place] [phone] Sasha Lima PA-C [address] [place] [address] 03/16/2024 3:00 PM EST Office Visit Gynecology/Obstetics [facility] [address] [place] [phone] Sasha Lima PA-C [address] [place] [address] 03/29/2024 1:45 PM EST Office Visit Gynecology/Obstetics [facility] [address] [place] [phone] Sasha Lima PA-C [address] [place] [address] 04/12/2024 1:45 PM EST Office Visit Gynecology/Obstetics [facility] [address] [place] [phone] Sasha Lima PA-C [address] [place] [address] 04/19/2024 1:45 PM EST Office Visit Gynecology/Obstetics [facility] [address] [place] [phone] Sasha Lima PA-C [address] [place] [address] 04/26/2024 1:45 PM EST Office Visit Gynecology/Obstetics [facility] [address] [place] [phone] Sasha Lima PA-C [address] [place] [address] 05/03/2024 1:45 PM EST Office Visit Gynecology/Obstetics [facility] [address] [place] [phone] Sasha Lima PA-C [address] [facility] [place] [address] 05/10/2024 1:45 PM EST Office Visit Gynecology/Obstetics [place] [address] [place] [phone] Sasha Lima PA-C [address] [place] [address] 05/17/2024 1:45 PM EST Office Visit Gynecology/Obstetics [facility] [address] [place] [phone] Sasha Lima PA-C [address] [place] [address] Scheduled Orders Name Type Priority Associated Diagnoses Orde r Schedule CBC WITH WBC DIFFERENTIAL AND ANEMIA REFLEX WORKUP Lab Routine Supervision of high-risk , second trimester Expected: 02/16/2024 (Approximate), Expires: 07/19/2024 50-G GESTATIONAL GLUCOSE, 1 HOUR Lab Routine Supervision of high-risk , second trimester Expected: 02/16/2024 (Approximate), Expires: 07/19/2024 TYPE AND SCREEN Lab Routine Supervision of high-risk , second trimester Expected: 02/16/2024 (Approximate), Expires: 07/19/2024 SYPHILIS ANTIBODY SCREEN WITH REFLEX TO RPR Lab Routine Supervision of high-risk , second trimester Expected: 02/16/2024 (Approximate), Expires: 07/19/2024 Health Maintenance Due Date Last Done Comments [...] Not on filedocumented as of this encounter Results * VASC DUPLEX VENOUS LE UNILAT (01/21/2024 1:21 PM EDT) Anatomical Region Laterality Modality Lower Extremity, Vascular Ultras ound 01/21/2024 1:42 PM EDT Impressions 01/21/2024 1:40 PM EDT IMPRESSION Normal venous duplex ultrasound of the left leg. Narrative 01/21/2024 1:40 PM EDT EXAM Left leg - VASC DUPLEX VENOUS LE UNILAT-01/21/2024 1:21 pm HISTORY Pain and cramping left calf, 24 weeks COMPARISON NONE. TECHNIQUE Duplex ultrasound with color doppler and waveform analysis FINDINGS Duplicated femoral vein a normal variant. Venous flow, compression, augmentation and no internal echoes in the common femoral, deep femoral, femoral and popliteal veins. Venous flow, compression and no internal echoes in the greater saphenous vein and in the lower leg in the posterior tibial and peroneal veins. Procedure Note Aron Desir MD - 01/21/2024 EXAM Left leg - VASC DUPLEX VENOUS LE UNILAT-01/21/2024 1:21 pm HISTORY Pain and cramping left calf, 24 weeks COMPARISON NONE. TECHNIQUE Duplex ultrasound with color doppler and waveform analysis FINDINGS Duplicated femoral vein a normal variant. Venous flow, compression,augmentation and no internal echoes in the common femoral, deep femoral,femoral and popliteal veins. Venous flow, compression and no internalechoes in the greater saphenous vein and in the lower leg in the posteriortibial and peroneal veins. IMPRESSION IMPRESSION Normal venous duplex ultrasound of the left leg. Sasha CROUCH documented in this encounter Visit Diagnoses Diagnosis Supervision of high-risk , second trimester- Primary Rh negative, antepartum Rhesus isoimmunization affecting management of mother, antepartum condition BMI 39.0-39.9,adult Body Mass Index 39.0-39.9, adult Constipation during , antepartum Pain of left calf Pain in limb Pain of left calf Pain in limb documented in this encounter Care Teams Finance Business Manager Relationship Specialty Start Date End Date Sheila Hinton CRNP [address] [facility] [place] [address] PCP - General Nurse Practitioner 12/23/22 documented as of this encounter"
--- OUTSIDE RECORDS SUMMARY | 2024-05-09 03:51 | External Medical Summary ---
Author Name Unknown Address Unknown Organization K01:LABORATORY [facility] [place] - [address] [place] [address] Laboratory Report Ordering Provider Test Date Status JUAN SAM 02/16/2024 14:31:26 Final Observation Date Value Abnormality Reference (Units ) Status Treponema pallidum Ab [Presence] in Serum by Immunoassay 02/16/2024 14:31:26 Nonreactive Nonreactive Final No serologic evidence of syp hilis. No additional testing clinicially indicated at this time. Consider repeat testing in 2-4 weeks if acute or primary syphilis is suspected. Performing Location LABORATORY [facility] - [address] [place] [address]
--- OUTSIDE RECORDS SUMMARY | 2024-05-09 03:51 | External Medical Summary | Summary of Care ---
Author Name Unknown Organization [facility] Address [address] [place] [address] Phone [phone] Care Team Providers Care Electric Fork Operator Name Role Phone Sheila Hinton DEBRA Primary Care Provider [phone] Reason for Visit * Reason Onset Date Comments Appointment 01/29/2024 Encounter Details Date Type Department Care Team ([facility] st Contact Info) Description 01/29/2024 Telephone Gynecology/Obstetics [place] [address] [place] [address] Sasha Lima PA-C [address] [place] [address] Appointment Allergies No known active allergiesdocumented as of this encounter (statuses as of 01/29/2024) Medications ALBUTEROL 90 MCG/ACT IN AERS 2 [...] as of this encounter (statuses as of 01/29/2024) Active Problems Problem Noted Date Diagnosed Date [...] as of this encounter (statuses as of 01/29/2024) Resolved Problems Problem Noted Date Diagnosed Date Resolved Date Migraine 12/23/2022 documented as of this encounter (statuses as of 01/29/2024) Immunizations Name Administration Dates Next Due COVID-19 mRNA, LNP-s, No Pre serve, 2-Dose Series ([employer]) 11/21/2020,10/31/2020 HEPATITIS B VACCINE, RECOMB, 20 MCG/ML, ADULT (HEPLISAV-B) 04/08/2023,03/04/2023 Pneumococcal Conjugate Vacci ne, 20-valent ([id number]) 12/23/2022 Seasonal Influenza Vac, Quad , Cell [...] money to get more. 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 Not on file Not [...] 1:20 PM EST Laboratory Laboratory Patient Service [place], [address] [phone] [facility] [address] [place] [address] 02/16/2024 1:45 PM EST Office Visit Gynecology/Obstetics [place] [address] [place] [phone] Sasha Lima PA-C [address] [place] [address] 03/01/2024 1:45 PM EST Office Visit Gynecology/Obstetics [place] [address] [place] [address] Sasha Lima PA-C [address] [place] [address] 03/16/2024 3:00 PM EST Office Visit Gynecology/Obstetics [place] [address] [place] [phone] Sasha Lima PA-C [address] [place] [address] 03/29/2024 1:45 PM EST Office Visit Gynecology/Obstetics [place] [address] [place] [phone] Sasha Lima PA-C [address] [place] [address] 04/12/2024 1:45 PM EST Office Visit Gynecology/Obstetics [place] [address] [place] [phone] Sasha Lima PA-C [address] [place] [address] 04/19/2024 1:45 PM EST Office Visit Gynecology/Obstetics [place] [address] [place] [phone] Sasha Lima PA-C [address] [place] [address] 04/26/2024 1:45 PM EST Office Visit Gynecology/Obstetics [place] [address] [place] [phone] Sasha Lima PA-C [address] [place] [address] 05/03/2024 1:45 PM EST Office Visit Gynecology/Obstetics [place] [address] [place] [phone] Sasha Lima PA-C [address] [place] [address] 05/10/2024 1:45 PM EST Office Visit Gynecology/Obstetics [place] [address] [place] [phone] Sasha Lima PA-C [address] [place] [address] 05/17/2024 1:45 PM EST Office Visit Gynecology/Obstetics [place] [address] [facility] [place] [phone] Sasha Lima PA-C 68 [facility] [address] Scheduled Orders Name Type Priority Associated Diagnoses [...] trimester documented in this encounter Care Teams Electric Fork Operator Relationship Specialty Start Date End Date Sheila Hinton CRNP [address] [place] [address] PCP - General Nurse Practitioner 12/23/22 documented as of this encounter
--- OUTSIDE RECORDS SUMMARY | 2024-05-09 03:51 | External Medical Summary ---
Author Name Unknown Address Unknown Organization K01:[facility] [address] [place] [address] Laboratory Report Ordering Provider Test Date Status JUAN SAM 02/23/2024 11:44:55 Final Observation Date Value Abnormality Reference (Units ) Status Glucose [Mass/volume] in Serum or Plasma --3 hours post dose glucose 02/23/2024 11:44:55 51 Below low normal 70-139 (mg/dL) Final Performing Location [facility] [address] [place] [address]
--- OUTSIDE RECORDS SUMMARY | 2024-05-09 03:51 | External Medical Summary ---
Author Name Unknown Address Unknown Organization K01:LABORATORY [facility] - [address] [facility] [address] Laboratory Report Ordering Provider Test Date Status JUAN SAM 02/16/2024 14:31:26 Final Observation Date Value Abnormality Reference (Units ) Status SYNC LEUKOCYTES IN BLOOD BY AUTOMATED COUNT 02/16/2024 14:31:26 11.82 Above high normal 4.00-10.80 (K/uL) Final Segs 02/16/2024 14:31:26 80.9 Above high normal 40.0-75.0 (%) Final Lymphs % 02/16/2024 14:31:26 12.9 Below low normal 18.0-42.0 (%) Final Monos 02/16/2024 14:31:26 4.7 1.0-11.0 (%) Final Eosinophils 02/16/2024 14:31:26 0.6 0.0-6.0 (%) Final Basos 02/16/2024 14:31:26 0.3 0.0-2.0 (%) Final Immature Granulocyte, Percent 02/16/2024 14:31:26 0.6 0.0-2.0 (%) Final Absolute Segs 02/16/2024 14:31:26 9.55 Above high normal 1.80-7.70 (K/uL) Final Lymphs, absolute 02/16/2024 14:31:26 1.53 1.00-4.80 (K/ul) Final Monos, Abs 02/16/2024 14:31:26 0.56 0.00-1.10 (K/uL) Final Eos, Abs 02/16/2024 14:31:26 0.07 0.00-0.70 (K/uL) Final Basos, Abs 02/16/2024 14:31:26 0.04 0.00-0.20 (K/uL) Final Immature Granulocytes, Number 02/16/2024 14:31:26 0.07 0.00-0.20 (K/uL) Final Performing Location LABORATORY [facility] - [facility] [address] [place] [address]
--- OUTSIDE RECORDS SUMMARY | 2024-05-09 03:51 | External Medical Summary | Summary of Care ---
Author Name Unknown Organization [facility] Address [address] [place] [address] Phone [phone] Care Team Providers Care Physician Support Coordinator Name Role Phone Sheila Hinton DEBRA Primary Care Provider [phone] Reason for Visit * Reason Comments Return Visit Encounter Details Date Type Department Care Team (Late st Contact Info) Description 01/19/2024 1:45 PM EDT Office Visit Gynecology/Obstetics [place] [address] [place] [phone] Sasha Lima PA-C [address] [place], [place] [phone] Supervision of high-risk , second trimester*; Rh [...] mRNA, LNP-s, No Pre serve, 2-Dose Series ([employer]) 11/21/2020,10/31/2020 HEPATITIS B VACCINE, RECOMB, 20 MCG/ML, ADULT (HEPLISAV-B) 04/08/2023,03/04/2023 Pneumococcal Conjugate Vacci ne, 20-valent ([id number]) 12/23/2022 Seasonal Influenza Vac, Quad , Cell [...] money to get more. Never true 12/09/2023 [place] Depression Scale Answer Date Recorded [place] Depression Scale Total 5 10/12/2023 The thought [...] Steffen's sign bilaterall. Left calf pain. OB [place] Problems (from 09/24/23 to present) Problem Noted [...] 01/27/2024 9:45 AM EST Imaging Radiology, [address] [phone] 02/16/2024 1:20 PM EST Laboratory Laboratory Patient Service [place], [address] [phone] [place], [facility] [address] [place] [address] 02/16/2024 1:45 PM EST Office Visit Gynecology/Obstetics [place] [address] [place] [phone] Sasha Lima PA-C [address] [place] [address] 03/01/2024 1:45 PM EST Office Visit Gynecology/Obstetics [place] [address] [place] [phone] Sasha Lima PA-C [address] [place] [address] 03/16/2024 3:00 PM EST Office Visit Gynecology/Obstetics [place] [address] [place] [phone] Sasha Lima PA-C [address] [place] [address] 03/29/2024 1:45 PM EST Office Visit Gynecology/Obstetics [place] [address] [place] [phone] Sasha Lima PA-C [address] [place] [address] 04/12/2024 1:45 PM EST Office Visit Gynecology/Obstetics [place] [address] [place] [phone] Sasha Lima PA-C [address] [place] [address] 04/19/2024 1:45 PM EST Office Visit Gynecology/Obstetics [place] [address] [place] [phone] Sasha Lima PA-C 68 [place] [address] 04/26/2024 1:45 PM EST Office Visit Gynecology/Obstetics [place] 68 [facility] [place] [phone] Sasha Lima PA-C [address] [place] [address] 05/03/2024 1:45 PM EST Office Visit Gynecology/Obstetics [place] 68 [facility] [place] [phone] Sasha Lima PA-C 68 [place] [address] 05/10/2024 1:45 PM EST Office Visit Gynecology/Obstetics [place] 68 [facility] [place] [phone] Sasha Lima PA-C [address] [place] [address] 05/17/2024 1:45 PM EST Office Visit Gynecology/Obstetics [place] 68 [facility] [place] [phone] Sasha Lima PA-C [address] [place] [address] Scheduled Orders Name Type Priority Associated Diagnoses [...] limb documented in this encounter Care Teams Physician Support Coordinator Relationship Specialty Start Date End Date Sheila Hinton CRNP [address] [facility] [place] [address] PCP - General Nurse Practitioner 12/23/22 documented as of this encounter"
--- OUTSIDE RECORDS SUMMARY | 2024-05-09 03:51 | External Medical Summary ---
Author Name Unknown Address Unknown Organization K01:[facility] - [address] [facility] [address] Laboratory Report Ordering Provider Test Date Status JUAN SAM 02/23/2024 10:46:24 Final Observation Date Value Abnormality Reference (Units ) Status Glucose, 2-hr post glucose challenge 02/23/2024 10:46:24 133 70-154 (mg/dL) Final Performing Location [facility] - [address] [facility] [address]
--- OUTSIDE RECORDS SUMMARY | 2024-05-09 03:52 | External Medical Summary | Summary of Care ---
Author Name Unknown Organization [facility] Address [address] [place] [address] Phone [phone] Care Team Providers Care Credit Union Field Examiner Name Role Phone Sheila Hinton DEBRA Primary Care Provider [phone] Encounter Details Date Type Department Care Team (Late st Contact Info) Description 12/31/2023 Telephone Gynecology/Obstetics [place] [address] [place] [address] Sasha Lima PA-C [address] [place] [address] Allergies No known active allergiesdocumented as of this encounter (statuses as of 12/31/2023) Medications Medication Sig Dispensed Refills Start Date [...] as of this encounter (statuses as of 12/31/2023) Active Problems Problem Noted Date Diagnosed Date Supervision of high-risk , second trime ster 12/28/2023 Constipation during , antepartum 2023 Supervision of high-risk , first trimes ter 10/12/2023 Overview: Estimated Date of Delivery: 05/11/24 Continue vitamin. O negative - needs Rhogam injection at 28 weeks and if patient has vaginal bleeding in . Rubella and varicella immune. Qnatal testing low risk. Anatomy ultrasound at 20 weeks. Rh negative, antepartum 10/12/2023 Overview: Rhogam given [...] as of this encounter (statuses as of 12/31/2023) Resolved Problems Problem Noted Date Diagnosed Date Resolved Date Migraine 12/23/2022 documented as of this encounter (statuses as of 12/31/2023) Immunizations Name Administration Dates Next Due COVID-19 mRNA, LNP-s, No Pre serve, 2-Dose Series ([employer]) 11/21/2020,10/31/2020 HEPATITIS B VACCINE, RECOMB, 20 MCG/ML, ADULT (HEPLISAV-B) 04/08/2023,03/04/2023 Pneumococcal Conjugate Vacci ne, 20-valent ([id number]) 12/23/2022 Seasonal Influenza Vac, Quad , Cell [...] money to get more. Never true 12/09/2023 [place] Depression Scale Answer Date Recorded [place] Depression Scale Total 5 10/12/2023 The thought [...] * Telephone Encounter - Rd Seth - 12/31/2023 9:11 AM EDT Spoke to patient, appointment scheduled * Telephone Encounter - Sasha Lima PA-C - 12/31/2023 8:54 AM EDT Please get patient scheduled for repeat ultrasound in 4 weeks. Thank you. * Telephone Encounter - Sasha Lima PA-C - 12/31/2023 8:48 AM EDT Spoke with patient. Patient notified that anatomy ultrasound is normal. Patient notified that placenta is low lying. Explained what this means. Advised no lifting more than 20 lbs and no sexual intercourse. Advised no weight lifting. Patient agrees. Discussed MATERNAL MEDICINE referral versus repeat ultrasound locally in 4 weeks. Patient opted for repeat ultrasound in 4 weeks - order placed. Answered patient's questions. documented in this encounter Plan of Treatment Upcoming Encounters Date Type Department Care Team (Late st Contact Info) Description 01/19/2024 1:45 PM EDT Office Visit Gynecology/Obstetics [place] [address] [place] [address] Sasha Lima PA-C [address] [place] [address] 01/27/2024 9:45 AM EST Imaging Radiology, [place] [address] [place] [address] 02/16/2024 1:45 PM EST Office Visit Gynecology/Obstetics [place] [address] [place] [address] Sasha Lima PA-C [address] [place] [address] 03/01/2024 1:45 PM EST Office Visit Gynecology/Obstetics [place] [address] [place] [address] ZozoSasha Hargrove PA-C [address] [place] [address] 03/16/2024 3:00 PM EST Office Visit Gynecology/Obstetics [place] [address] [place] [phone] Sasha Lima PA-C [address] [place] [address] 03/29/2024 1:45 PM EST Office Visit Gynecology/Obstetics [place] [address] [place] [phone] Sasha Lima PA-C [address] [place] [address] 04/12/2024 1:45 PM EST Office Visit Gynecology/Obstetics [place] [address] [place] [phone] Sasha Lima PA-C [address] [place] [address] 04/19/2024 1:45 PM EST Office Visit Gynecology/Obstetics [place] [address] [place] [phone] Sasha Lima PA-C [address] [place] [address] 04/26/2024 1:45 PM EST Office Visit Gynecology/Obstetics [place] [address] [place] [phone] Sasha Lima PA-C [address] [place] [address] 05/03/2024 1:45 PM EST Office Visit Gynecology/Obstetics [place] [address] [place] [phone] Sasha Lima PA-C 68 [place] [address] 05/10/2024 1:45 PM EST Office Visit Gynecology/Obstetics [place] 68 [facility] [place] [phone] Sasha Lima PA-C 68 [place] [address] 05/17/2024 1:45 PM EST Office Visit Gynecology/Obstetics [place] 68 [facility] [place] [phone] Sasha Lima PA-C [address] [place] [address] Scheduled Orders Name Type Priority Associated Diagnoses Orde r Schedule US PREG FOLLOW-UP EACH FETUS Medical Imaging Routine Low-lying placenta Obesity during Abnormal ultrasonic finding on screening of mother Expected: 01/26/2024 (Approximate), Expires: 01/30/2025 Health Maintenance Due Date Last Done Comments [...] as of this encounter Visit Diagnoses Diagnosis Low-lying placenta- Primary Hemorrhage from placenta previa, unspecified as to episode of care Obesity during Abnormal ultrasonic finding on screening of mother Abnormal findings on screening documented in this encounter Care Teams Credit Union Field Examiner Relationship Specialty Start Date End Date Sheila Hinton CRNP [address] [place] [address] PCP - General Nurse Practitioner 12/23/22 documented as of this encounter
--- OUTSIDE RECORDS SUMMARY | 2024-05-09 03:52 | External Medical Summary | Summary of Care ---
Author Name Unknown Organization [facility] Address [address] [place] [address] Phone [phone] Care Team Providers Care Diamond Blender Name Role Phone Sheila Hinton DEBRA Primary Care Provider [phone] Reason for Visit * Reason Onset Date Comments Return Visit Medication Administration 12/22/2023 Flu an d/or Pneumo Inj Encounter Details Date Type Department Care Team (Late st Contact Info) Description 12/22/2023 1:45 PM EDT Office Visit Gynecology/Obstetics [place] [address] [place] [address] Sasha Lima PA-C [address] [place] [address] Supervision of high-risk , second trimester*; Rh negative, antepartum; Back pain affecting in second trimester; BMI 39.0-39.9,adult; Constipation during , antepartum; Need for prophylactic vaccination and inoculation against influenza Allergies No known active allergiesdocumented as of this encounter (statuses as of 12/29/2023) Medications Medication Sig Dispensed Refills Start Date [...] 10/14/2023 Active Aspirin 81 MG Oral Tablet ChewableIndicati ons:Supervision of high-risk , second trimester Take 1 Tablet by mouth daily. 90 Tablet 2 12/22/2023 Active Aspirin 81 MG Oral Tablet ChewableIndicati ons:Supervision of high-risk , second trimester Take 1 Tablet by mouth daily. 90 Tablet 2 11/12/2023 12/22/2023 Discontinued (Refill) documented as of this encounter (statuses as of 12/29/2023) Active Problems Problem Noted Date Diagnosed Date [...] as of this encounter (statuses as of 12/29/2023) Resolved Problems Problem Noted Date Diagnosed Date Resolved Date Migraine 12/23/2022 documented as of this encounter (statuses as of 12/29/2023) Immunizations Name Administration Dates Next Due COVID-19 mRNA, LNP-s, No Pre serve, 2-Dose Series ([employer]) 11/21/2020,10/31/2020 HEPATITIS B VACCINE, RECOMB, 20 MCG/ML, ADULT (HEPLISAV-B) 04/08/2023,03/04/2023 Pneumococcal Conjugate Vacci ne, 20-valent ([id number]) 12/23/2022 Seasonal Influenza Vac, Quad , Cell [...] money to get more. Never true 12/09/2023 [place] Depression Scale Answer Date Recorded [place] Depression Scale Total 5 10/12/2023 The thought [...] Reading Time Taken Comments Blood Pressure 114/62 12/22/2023 1:47 PM EDT Pulse - - Temperature - - Respiratory Rate - - Oxygen Saturation - - Inhaled Oxygen Concentration - - Weight 110.2 kg (242 lb 14.4 oz) 12/22/2023 1:47 PM EDT Height - - Body Mass Index 40.47 12/23/2022 9:07 AM EDT documented in this encounter Progress Notes * Leora Monroy LPN - 12/22/2023 2:12 PM EDT PRE - ADMINISTRATION DOCUMENTATION Are you experiencing any cold symptoms or fever? No Have you had Guillain-Monterey Syndrome (an illness that causes paralysis) within the last 6 weeks? No Have you had the flu shot in the past? YES Have you ever had a reaction to the flu shot? No Leora Monroy LPN, 12/22/2023 2:12 PM Immunization Administration Documentation Time Out Procedure Performed: Yes Patient Identified (Ask Name/Date of ): Yes Does the patient have a fever greater than 101 degrees today? No Patient allergic to latex? No VFC Stock: No Immunization(s) verified: Yes, Immunization Name: Flu, VIS Sheet(s) given: Yes Verified Side and Site: Yes Verified Shot(s) with Parent(s)/Patient: Yes * Sasha Lima PA-C - 12/22/2023 1:50 PM EDT Sharee Whitfield presents for visit at 19w6d. BP 114/62 | Wt 110.2 kg (242 lb 14.4 oz) | LMP 08/05/2023 (Exact Date) | BMI 40.47 kg/m | BSA 2.25 m Doing well. Denies vaginal bleeding, leaking of fluid, vaginal pressure, contractions, abdominal pain, or abnormal vaginal discharge. Denies headaches, blurry vision, or right upper quadrant pain. Patient states she feels flutters of movement. Patient reports some food aversions (vomited a few times since last appointment). Patient has some right sided lower back pain, but it resolved. Patient reports denies concerns with nausea. Patient denies concerns with constipation. Physical Exam General: alert and oriented, no acute distress Pulmonary: normal respiratory effort, no accessory muscle use. Abdomen: gravid, soft, non-tender heart rate: 150's bpm OB [place] Problems (from 09/24/23 to present) Problem Noted Resolved Constipation during , antepartum 10/16/2023 by Sasha Lima PA-C No Supervision of high-risk , first trimester 10/12/2023 by Sasha Lima PA-C No Estimated Date of Delivery: 05/11/24 Continue vitamin. O negative - needs Rhogam injection at 28 weeks and if patient has vaginal bleeding in . Rubella and varicella immune. Qnatal testing low risk. Anatomy ultrasound at 20 weeks. Rh negative, antepartum 10/12/2023 by Sasha Lima [...] weeks. Patient declines MATERNAL MEDICINE referral. Plan: -Patient desires influenza vaccine today. -Prescription sent for aspirin 81 mg daily. -Backache: Urine culture ordered. Symptoms are intermittent. -Anatomy ultrasound scheduled. Counseled patient to call triage/go to labor [...] Nursing Notes * Leora Monroy LPN - 12/22/2023 1:46 PM EDT Routine OB check. Denies questions or complaints. documented in this encounter Plan of Treatment Upcoming Encounters Date Type Department Care Team (Late st Contact Info) Description 12/29/2023 10:30 AM EDT Imaging Radiology, [place] [address] [place] [address] 01/19/2024 1:45 PM EDT Office Visit Gynecology/Obstetics [place] [address] [place] [address] Sasha Lima PA-C [address] [place] [address] 02/16/2024 1:45 PM EST Office Visit Gynecology/Obstetics [place] [address] [place] [address] Sasha Lima PA-C [address] [place] [address] 03/01/2024 1:45 PM EST Office Visit Gynecology/Obstetics [place] [address] [place] [address] Sasha Lima PA-C [address] [place] [address] 03/16/2024 3:00 PM EST Office Visit Gynecology/Obstetics [place] [address] [place] [address] Sasha Lima PA-C [address] [place] [address] 03/29/2024 1:45 PM EST Office Visit Gynecology/Obstetics [place] 68 [place] [phone] Sasha Lima PA-C [address] [place] [address] 04/12/2024 1:45 PM EST Office Visit Gynecology/Obstetics [place] [address] [place] [phone] Sasha Lima PA-C [address] [place] [address] 04/19/2024 1:45 PM EST Office Visit Gynecology/Obstetics [place] [address] [place] [phone] Sasha Lima PA-C [address] [place] [address] 04/26/2024 1:45 PM EST Office Visit Gynecology/Obstetics [place] [address] [place] [address] Sasha Lima PA-C [address] [place] [address] 05/03/2024 1:45 PM EST Office Visit Gynecology/Obstetics [place] [address] [place] [phone] Sasha Lima PA-C [address] [place] [address] 05/10/2024 1:45 PM EST Office Visit Gynecology/Obstetics [place] 68 [facility] [place] [phone] Sasha Lima PA-C [address] [place] [address] 05/17/2024 1:45 PM EST Office Visit Gynecology/Obstetics [place] [address] [place] [address] Sasha Lima PA-C [address] [place] [address] Health Maintenance Due Date Last Done Comments [...] Procedure Name Priority Date/Time Associated Diagnosis Comments CULTURE, URINE, QUANTITATIVE Routine 12/22/2023 2:36 PM EDT Back pain affecting in second trimester documented in this encounter Results * CULTURE, URINE, QUANTITATIVE (12/22/2023 2:36 PM EDT) Culture Growth No significant growth 12/23/2023 4:19 PM EDT LABORATORY [facility] Urine Urine specimen obtained by clean catch procedure / Unknown Non-blood Collection / Unknown 12/22/2023 2:36 PM EDT 12/22/2023 2:36 PM EDT Sasha Bosch PA-C LAB MICRO - GENERAL ORDERABLES LABORATORY [facility] [address] [place] [address] documented in this encounter Visit Diagnoses Diagnosis Supervision of high-risk , second trimester- Primary Rh negative, antepartum Rhesus isoimmunization affecting management of mother, antepartum condition Back pain affecting in second trimester BMI 39.0-39.9,adult Body Mass Index 39.0-39.9, adult Constipation during , antepartum Need for prophylactic vaccination and inoculation against influenza documented in this encounter Care Teams Diamond Blender Relationship Specialty Start Date End Date Sheila Hinton CRNP [address] [facility] [place] [address] PCP - General Nurse Practitioner 12/23/22 documented as of this encounter"
--- OUTSIDE RECORDS SUMMARY | 2024-05-09 03:52 | External Medical Summary | Summary of Care ---
Author Name Unknown Organization [facility] Address [address] [place] [address] Phone [phone] Care Team Providers Care Senior Electronics Technician Name Role Phone Sheila HintonNP Primary Care Provider [phone] Reason for Visit * Reason Comments Return Visit Encounter Details Date Type Department Care Team (Late st Contact Info) Description 11/12/2023 10:45 AM EDT Office Visit Gynecology/Obstetics [place] [address] [place] [phone] Sasha Lima PA-C [address], [place] [phone] Supervision of high-risk , second trimester*; Rh negative, antepartum; BMI 39.0-39.9,adult; Constipation during , antepartum; Encounter for supervision of normal in second trimester, unspecified Allergies No known active allergiesdocumented as of this encounter (statuses as of 11/14/2023) Medications Medication Sig Dispensed Refills Start Date [...] by mouth daily. 90 Tablet 2 11/12/2023 Active documented as of this encounter (statuses as of 11/14/2023) Active Problems Problem Noted Date Diagnosed Date Constipation during , antepartum 2023 Supervision of high-risk , first brett trujillo 10/12/2023 Overview: Estimated Date of Delivery: 05/11/24 [...] as of this encounter (statuses as of 11/14/2023) Resolved Problems Problem Noted Date Diagnosed Date Resolved Date Migraine 12/23/2022 documented as of this encounter (statuses as of 11/14/2023) Immunizations Name Administration Dates Next Due COVID-19 mRNA, LNP-s, No Pre serve, 2-Dose Series (Pfizer) 11/21/2020,10/31/2020 Hepatitis B Vaccine, Recombi nant, Adjuvanted, 20 mcg/mL (Heplisav-B) 04/08/2023,03/04/2023 Pneumococcal Conjugate Vacci ne, 20-valent ([id number]) 12/23/2022 Seasonal Influenza Vac, Quad , Cell culture, with Preserve, 6 mon and above, (Flucelvax) 02/06/2019,01/31/2018,12/17/2016 Seasonal Influenza Virus Vac cine, Unspecified Formulation 01/31/2018,12/17/2016 Seasonal Influenza, PF, 6 M & above, IM , (FluLaval or Fluzone) 12/23/2022 TDAP, Age 7 and older, IM (Adacel) [...] the money to buy more. Never true 12/19/19 23 Within the past 12 months, t he food you bought just didn't last and you didn't have money to get more. Never true 12/18/2022 [place] Depression Scale Answer Date Recorded [place] Depression Scale Total 5 10/12/2023 The thought of harming myself has occurred to me . Never 10/12/2023 Childcare Answer Date Recorded Do you feel overwhelmed with taking care of a child, family member or friend? No 12/18/2022 Does your family need help f inding childcare? (Household - for ages 0-17 years) Not on file 12/18/2022 Clothing Answer Date Recorded Have you been unable to get clothing when it was really needed? No 12/18/2022 Is your family able to get c lothes or diapers when needed? (Household - for ages 0-17 years) Not on file 12/18/2022 Personal Safety Answer Date Recorded Do you feel unsafe or have concerns for your saf ety? No 12/18/2022 Do you have concerns for you r family's safety? (Household - for ages 0-17 years) Not on file 12/18/2022 Utilities Answer Date Recorded Do you have trouble paying y our heating, water, or electric bill? No 12/18/2022 Is your family able to pay t he heat, water, or electric bill? (Household - for ages 0-17 years) Not on file 12/18/2022 Does your family have access to good internet? (Household - for ages 0-17 years) Not on file 12/18/2022 Employment Status Answer Date Recorded Are you unemployed or without regular income? No 12/18/2022 Does the household have a [facility] source [facility] income? (Household - for ages 0-17 years) Not on file 12/18/2022 Social Connections Answer Date Recorded How often do you feel lonely or isolated from th ose around you? Never 12/18/2022 Financial Resource Strain Answer Date R ecorded Do you have any trouble payi ng for your medications, or do you think you might in the future? No 12/18/2022 Does your family have troubl e paying for medicine? (Household - for ages 0-17 years) Not on file 12/18/2022 Transportation Needs Answer Date Record ed READ ONLY Do you have troubl e getting a ride to medical visits or work? Never True 12/18/2022 Does your family have a hard time getting a ride to doctors visits? (Household - for ages 0-17 years) Not on file 12/18/2022 Has lack of transportation k ept you from medical appointments, meetings, work, or from getting things needed for daily living? Check all that apply. (Adult - for ages 18 years and over) Not on file 12/18/2022 Do you (or your family) have trouble finding or paying for a ride (transportation)? (Household - for ages 0-17 years) Not on file 12/18/2022 Housing Stability Answer Date Recorded Do you currently live in a s helter or have no steady place to sleep at night? No 12/18/2022 READ ONLY Do you think you a re at risk of becoming homeless? No 12/18/2022 Does your family worry about paying for your home or becoming homeless? (Household - for ages 0-17 years) Not on file 0 12/18/2022 Are you homeless or worried that you might be in the future? (Adult - for ages 18 years and over) Not on file Are you (or your family) rogelio eless or worried that you might be in the future? (Household - for ages 0-17 years) Not on file Food Insecurity Answer Date Recorded Do you need food for this week? No 12/18/2022 Are you able to get enough f ood for your family? (Household - for ages 0-17 years) Not on file 12/18/2022 Does your family need food t his week? (Household - for ages 0-17 years) Not on file 12/18/2022 Do you always have enough fo od for your family? (Household - for ages 0-17 years) Not on file 12/18/2022 Estimated Date of Delivery Comme nts Yes [...] Sign Reading Time Taken Comments Blood Pressure 110/62 11/12/2023 10:54 AM EDT Pulse - - Temperature - - Respiratory Rate - - Oxygen Saturation - - Inhaled Oxygen Concentration - - Weight 108.7 kg (239 lb 9.6 oz) 024 10:54 AM EDT Height - - Body Mass Index 39.92 12/23/2022 9:07 AM EDT documented in this encounter Progress Notes * Sasha Lima PA-C - 11/12/2023 11:01 AM EDT Sharee Whitfield presents for visit at 14w1d. BP 110/62 | Wt 108.7 kg (239 lb 9.6 oz) | LMP 08/05/2023 (Exact Date) | BMI 39.92 kg/m | BSA 2.23m Doing well. Denies vaginal bleeding, leaking of fluid, vaginal pressure, contractions, abdominal pain, or abnormal vaginal discharge. Denies blurry vision or right upper quadrant pain. Patient reports that nausea is much improved. Patient is constipation is improved with Colace. Patient has some pulling/tugging with change in position - round ligament pain. Patient has some intermittent headaches that resolve on their own. Physical Exam General: alert and oriented, no acute distress Pulmonary: normal respiratory effort, no accessory muscle use. Abdomen: gravid, soft, non-tender [facility] [place] Problems (from 09/24/23 to present) Problem Noted Resolved Supervision of high-risk , second trimester 10/12/2023 by Sasha Lima PA-C No [...] Patient declines MATERNAL MEDICINE referral. Plan: -Patient is going to start the aspirin 81 mg daily now. Prescription sent to pharmacy. -Qnatal testing low risk. -Anatomy ultrasound ordered. -Constipation is improved. Counseled patient to call triage/go to labor [...] Nursing Notes * Leora Monroy LPN - 11/12/2023 10:54 AM EDT Routine OB check. Denies questions or complaints. documented in this encounter Plan of Treatment Upcoming Encounters Date Type Department Care Team (Late st Contact Info) Description 12/22/2023 1:45 PM EDT Office Visit Gynecology/Obstetics [place] [address] [place] [phone] Sasha Lima PA-C [address] [place] [address] 12/29/2023 10:30 AM EDT Imaging Radiology, [place] [address] [place] [address] 01/19/2024 1:45 PM EDT Office Visit Gynecology/Obstetics [place] [address] [place] [phone] Sasha Lima PA-C [address] [place] [address] 02/16/2024 1:45 PM EST Office Visit Gynecology/Obstetics [place] [address] [place] [phone] Sasha Lima PA-C [address] [place] [address] 03/01/2024 1:45 PM EST Office Visit Gynecology/Obstetics [place] [address] [place] [phone] Sasha Lima PA-C [address] [place] [address] 03/16/2024 3:00 PM EST Office Visit Gynecology/Obstetics [place] [address] [place] [phone] Sasha Lima PA-C [address] [place] [address] 03/29/2024 1:45 PM EST Office Visit Gynecology/Obstetics [place] [address] [place] [phone] Sasha Lima PA-C [address] [place] [address] 04/12/2024 1:45 PM EST Office Visit Gynecology/Obstetics [place] [address] [place] [address] Sasha Lima PA-C [address] [place] [address] 04/19/2024 1:45 PM EST Office Visit Gynecology/Obstetics [place] [address] [place] [address] Sasha Lima PA-C [address] [place] [address] 04/26/2024 1:45 PM EST Office Visit Gynecology/Obstetics [place] [address] [facility] [place] [address] Sasha Lima PA-C [address] [place] [address] 05/03/2024 1:45 PM EST Office Visit Gynecology/Obstetics [place] [address] [facility] [place] [phone] Sasha Lima PA-C [address] [place] [address] 05/10/2024 1:45 PM EST Office Visit Gynecology/Obstetics [place] [address] [facility] [place] [phone] Sasha Lima PA-C [address] [place] [address] 05/17/2024 1:45 PM EST Office Visit Gynecology/Obstetics [place] [address] [facility] [place] [phone] Sasha Lima PA-C [address] [place] [address] Scheduled Orders Name Type Priority Associated Diagnoses Orde r Schedule US PREG SINGLE/1ST GEST, 14 WEEKS OR LATER Medical Imaging Routine Supervision of high-risk , second trimester Encounter for supervision of normal in second trimester, unspecified Expected: 12/23/2023 (Approximate), Expires: 05/14/2024 Health Maintenance Due Date Last Done Comments COVID-19 Vaccine ( season) 2022 11/21/2020, 10/31/2020 HPV/Co-Test 09/20/2023 Influenza Vaccine (FLU shot) (#1) 2023 12/23/2022, 02/06/2019, 01/31/2018, Additional history exists Depression Screening 12/24/2023 12/23/2022 Cervical Cancer Screening 01/20/2026 Pap Smear 01/20/2026 01/20/2023 DTaP,Tdap,and Td Vaccines (3 - Td or Tdap) 08/31/2028 08/31/2018, 2004 Pneumococcal Vaccine: Pediatrics (0 to 5 Years) and At-Risk Patients (6 to 64 Years) Completed 12/23/2022 Hepatitis B Vaccine Completed 04/08/2023, HPV (Gardasil) Vaccine Aged Out No lo [...] Index 39.0-39.9, adult Constipation during , antepartum Encounter for supervision of normal in second trimester, unspecified documented in this encounter Care Teams Senior Electronics Technician Relationship Specialty Start Date End Date Sheila Hinton CRNP [address] [place] [id number] PCP - General Nurse Practitioner 12/23/22 documented as of this encounter"
--- OUTSIDE RECORDS SUMMARY | 2024-05-09 03:52 | External Medical Summary ---
Author Name Unknown Address Unknown Organization [id number]:[facility] - [address] [place] [address] Laboratory Report Ordering Provider Test Date Status JUAN SAM 12/22/2023 14:36:26 Final Observation Date Value Abnormality Reference (Units) Status Bacteria identified in Specimen by Culture 12/22/2023 14:36:26 No significant growth Final Test: Culture, Urine, Quanti tative
Specimen Source: Urine, Clean Catch
Specimen Type: Urine
Specimen Date: 12/22/2023 1436
Result Date: 12/23/2023 1619
Result Status: Final result
Resulting Lab: [facility]
[address]
[facility] [address]

CULTURE

No significant growth

null Performing Location [facility] - [address] [place] [phone]
--- NOTE | 2024-05-09 06:28 | History & Physical Report ---
Date of Service May 09, 2024 Assessment & Plan Admission and Anticipated Discharge Date Admission Date: May 08, 2024 History of Present Illness Chief Complaint: onset of labor Primary Care Provider: Claudette Cam 28 F P0000 at 39 weeeks with onset of labor with leakage of fluid. GBS is negat [place]. Allergies Allergy/AdvReac Type Severity Reaction Status Date / Time No Known Allergies Allergy Unverified 02/27/19 08:46 Patient History Medical History Encounter for pre-operative examination No pertinent past medical history Surgical History No pertinent past surgical history Social History (Reviewed 05/09/24 @ 06: by Geovanni Pro MD) Smoking Status: Never smoker Second Hand Exposure: No; Do You Dip or Chew Tobacco: No; Tobacco Cessation Education Requested by Patient: No Hx Alcohol Use: No Hx Substance Use: No Preferred Language: [place]rugu[place] Communication Ability: Effective Security Patrol Officer Required: No Beliefs That Will Affect Care: None marital status: Current Living Situation: Spouse current occupational status: employed Other Information That Helps Us Care for You: No Feels Safe at Home: Yes Safety Concerns: Feels Safe At This Time Assistive Devices: Contacts and Glasses OB History primip CARTRIDGE GAUGER History neg Review of Systems All systems reviewed & are unremarkable except as noted in HPI & below Physical Exam Constitutional: WD/WN, vitals as above Eyes: PERRL, conjunctivae normal, anicteric sclerae Respiratory: normal respiratory effort, lungs clear to auscultation Cardiovascular: Rate/Rhythm: regular rate and regular rhythm Gastrointestinal (Abdomen): Inspection/Auscultation: abdomen normal to inspection Musculoskeletal: Extremities: extremities normal to inspection Skin: no rashes, warm and dry Neurologic: patellar DTR's 2+ bilat, sensation intact Psychiatric: A+Ox3, euthymic affect Genitourinary: Manual OB Exam: + cervical dilation 9 cm, + cervical effacement 100%, + station 0 and + amniotic fluid clear OB Exam Monitor Tracing: + external FHT monitor used, + external uterine monitor used, + category I and + normal FHT variability AROM forebag with Amni-hook clear fluid Results & Data Vital Signs (Past 12 Hours) Vital Signs Temp Pulse Resp BP Pulse Ox 05/09/24 06:23 60 98 05/09/24 06:18 62 98 05/09/24 06:13 62 112/70 97 05/09/24 06:08 57 L 96 05/09/24 06:03 60 97 05/09/24 06:00 18 05/09/24 06:00 18 05/09/24 05:58 81 96 05/09/24 05:57 56 L 109/64 05/09/24 05:54 52 L 94 05/09/24 05:53 55 L 95 05/09/24 05:49 57 L 94 05/09/24 05:48 57 L 95 05/09/24 05:43 56 L 96 05/09/24 05:42 53 L 116/67 05/09/24 05:39 62 94 05/09/24 05:38 55 L 96 05/09/24 05:33 61 97 05/09/24 05:30 18 05/09/24 05:30 18 05/09/24 05:28 58 L 97 05/09/24 05:27 55 L 114/70 05/09/24 05:23 55 L 97 05/09/24 05:18 57 L 96 05/09/24 05:16 53 L 94 05/09/24 05:13 56 L 96 05/09/24 05:11 55 L 107/66 05/09/24 05:08 56 L 96 05/09/24 05:03 58 L 95 05/09/24 05:00 18 05/09/24 05:00 18 05/09/24 04:58 59 L 97 05/09/24 04:56 64 117/74 05/09/24 04:53 73 96 05/09/24 04:48 61 97 05/09/24 04:43 62 96 05/09/24 04:42 64 117/68 05/09/24 04:38 65 97 05/09/24 04:36 86 93 05/09/24 04:33 59 L 96 05/09/24 04:30 18 05/09/24 04:30 36.4 C L 18 05/09/24 04:28 67 96 05/09/24 04:26 59 L 119/72 05/09/24 04:23 62 96 05/09/24 04:18 62 96 05/09/24 04:13 60 97 05/09/24 04:11 57 L 115/72 05/09/24 04:08 72 96 05/09/24 04:03 71 95 05/09/24 03:58 94 05/09/24 03:58 60 05/09/24 03:58 62 105/62 94 05/09/24 03:53 58 L 93 05/09/24 03:48 55 L 94 05/09/24 03:47 55 L 94 05/09/24 03:43 55 L 94 05/09/24 03:42 55 L 101/59 L 94 05/09/24 03:38 56 L 93 05/09/24 03:33 55 L 93 05/09/24 03:29 54 L 93 05/09/24 03:28 56 L 94 05/09/24 03:26 57 L 95/54 L 05/09/24 03:23 53 L 92 05/09/24 03:19 59 L 94 05/09/24 03:18 81 94 05/09/24 03:13 55 L 93 05/09/24 03:12 55 L 100/55 L 05/09/24 03:08 54 L 93 05/09/24 03:03 56 L 93 05/09/24 03:00 18 05/09/24 03:00 18 05/09/24 02:58 93 05/09/24 02:58 56 L 05/09/24 02:58 55 L 104/55 L 05/09/24 02:57 57 L 94 05/09/24 02:53 57 L 93 05/09/24 02:48 56 L 93 05/09/24 02:47 57 L 94 05/09/24 02:43 57 L 94 05/09/24 02:42 57 L 100/59 L 05/09/24 02:40 56 L 94 05/09/24 02:38 57 L 96 05/09/24 02:33 59 L 96 05/09/24 02:30 18 05/09/24 02:30 18 05/09/24 02:28 58 L 96 05/09/24 02:27 56 L 110/65 05/09/24 02:23 59 L 99 05/09/24 02:18 66 96 05/09/24 02:13 68 96 02/18/25 02:12 60 125/74 0218/25 02:08 66 95 05/09/24 02:06 74 94 05/09/24 02:03 78 94 05/09/24 02:00 18 05/09/24 02:00 36.6 C 18 05/09/24 01:59 75 94 05/09/24 01:58 67 94 05/09/24 01:57 59 L 118/71 05/09/24 01:54 59 L 94 05/09/24 01:53 59 L 94 05/09/24 01:48 63 97 05/09/24 01:44 66 93 05/09/24 01:43 59 L 96 05/09/24 01:41 68 121/78 05/09/24 01:38 64 96 05/09/24 01:33 66 99 05/09/24 01:28 66 97 05/09/24 01:26 67 129/79 05/09/24 01:23 74 97 05/09/24 01:18 70 97 05/09/24 01:13 73 97 05/09/24 01:09 69 130/80 05/09/24 01:08 64 99 05/09/24 01:06 65 125/77 05/09/24 01:03 65 125/74 95 05/09/24 01:00 71 128/75 05/09/24 00:58 72 99 05/09/24 00:53 79 97 05/09/24 00:49 67 153/84 H 05/09/24 00:48 66 99 05/09/24 00:43 67 100 05/09/24 00:09 36.8 C 18 05/08/24 23:23 71 138/86 05/08/24 23:19 18 05/08/24 23:19 36.8 C 18 Code Status & VTE Plan VTE Prophylaxis Plan VTE Prophylaxis will be ordered: No Monitoring External Monitor Cat 1
[2024-05-09] MEDS: OXYTOCIN 30 UNITS/NSS 30 UNITS/500 ML BAG IV PRN ×2 (08:07→09:03)
[2024-05-09] MEDS: fentANYL 2 MCG/ML BUPIVacaine 0.125%-NSS 100ML BAG EPI PRN (08:35)
[2024-05-09 15:10] LABS: Appearance Urine Clear (Clear); Bacteria Urine Automated None Seen (None Seen); Bilirubin Urine Negative (Negative); Blood Urine 2+ (Negative); Cast Urine Automated 0-2 /lpf (0-2); Color Urine Yellow; Epithelial Cell Urine Auto 0-2 /hpf (0-2); Glucose Urine UA Negative (Negative); Ketones Urine 1+ (Negative); Leukocyte Esterase Urine 2+ (Negative); Nitrite Urine Negative (Negative); Protein Urine Trace (Negative); RBC Urine Automated >20 /hpf (0-2); Specific Gravity Urine 1.018 (1.000-1.030); Urobilinogen Urine Negative (Negative)
[2024-05-09] MEDS: miSOPROStoL 200 MCG TAB PR ONE (15:20)
[2024-05-09] MEDS ORDERED: OXYTOCIN 30 UNITS/NSS 30 UNITS/500 ML BAG IV PRN (15:23)
[2024-05-09] MEDS ORDERED: oxyCODONE/ACETAMINOPHEN 5mg/325mg TAB PO PRN (15:23)
[2024-05-09] MEDS ORDERED: DIPHTHER/TETAN/PERTUS Vaccine (Tdap, Adol/Adult) 0.5mL IM ONE (15:23)
[2024-05-09] MEDS ORDERED: HYDROCORTISONE ACETATE 25 MG SUPP PR PRN (15:23)
[2024-05-09] MEDS ORDERED: bisacodyL 10 MG SUPP PR PRN (15:23)
[2024-05-09] MEDS ORDERED: ACETAMINOPHEN W/CODEINE #3 1 TAB PO PRN (15:24)
--- NOTE | 2024-05-09 15:29 | Delivery Summary ---
Vaginal Delivery Summary Date of Service May 09, 2024 Vaginal Delivery Summary Patient is a 1 para 1 had spontaneous rupture of membranes at 39 weeks and 5 days gestation. Was brought in for induction. Eventually she had an epidural for pain control. She was started on IV Pitocin. She made slow but steady progress. She had some tachycardia towards the end of her labor. But she also had good [id number] variability. And also had excessive accelerations. Pushed out a live via direct occiput anterior position over an intact perineum. was suctioned through the mouth and the nose. Shoulders were delivered without difficulty. was somewhat depressed at . Cord blood was stripped. Cord was clamped and was attended to by the nurses. Section of the perineum revealed a first-degree laceration at 5:00. This was repaired with a 2-0 Vicryl suture. Quantitative blood loss was 50 mL. Patient tolerated procedure well. Patient was also given 800 mics of rectal Cytotec.
--- NOTE | 2024-05-09 15:51 | Anesthesia Procedure Note ---
Date of Service May 09, 2024 Anesthesia Post Epidural Note Vital Signs Vital Signs: Temp Pulse Resp BP Pulse Ox 37 C 76 20 122/65 89 L 05/09/24 13:20 05/09/24 15:41 05/09/24 13:20 05/09/24 15:41 05/09/24 15:32 Pain Intensity Abdomen: Pain Intensity: 4 Notes Mental Status: alert / awake / arousable and participated in evaluation Nausea / Vomiting: adequately controlled Pain: adequately controlled Airway Patency, RR, SpO2: stable & adequate BP & HR: stable & adequate Hydration State: stable & adequate Neuraxial Anesthesia: was administered and sensory block is resolving Anesthetic Complications: no major complications apparent Epidural: Removed without complications and With tip intact
[2024-05-09] MEDS: IBUPROFEN 600 MG TAB PO PRN (16:02)
[2024-05-09] MEDS ORDERED: miSOPROStoL 200 MCG TAB ONE (18:27)
[2024-05-09] MEDS: DOCUSATE SODIUM 100 MG CAP PO SCH (19:31)
[2024-05-09] MEDS: BENZOCAINE 20% SPRY 85 APPLN/85 GM CAN EXT PRN (19:42)
[2024-05-10 06:59] LABS: Hematocrit (blood only) 33.7 % (37.0-47.0); Hemoglobin 11.4 g/dl (12.0-16.0); Mean Corpuscular Hemoglobin 29.8 pg (25.0-34.0); Mean Corpuscular Hgb Conc 33.8 g/dL (32.0-36.0); Mean Corpuscular Volume 88.2 fL (80.0-100.0); Platelet Count 180 K/uL (130-400); RDW Coefficient of Variation 13.2 % (11.5-14.5); RDW Standard Deviation 42.8 fL (36.4-46.3); Red Blood Count 3.82 M/uL (4.20-5.40); White Blood Count 14.19 K/ul (4.8-10.8)
[2024-05-10] MEDS: ACETAMINOPHEN 325 MG TAB PO PRN (08:29)
[2024-05-10] MEDS: PRENATAL VITAMIN 1 TAB PO SCH (08:29)
[2024-05-10 09:46] VITALS: RESP 18
--- NOTE | 2024-05-10 10:04 | Obstetrical Progress Note ---
Date of Service May 10, 2024 Assessment & Plan Admission and Anticipated Discharge Date Admission Date: May 08, 2024 Subjective Patient is seen and examined. She feels well, no complaints. Ambulating without dizziness Voiding without difficulty Tolerating regular diet with out N&V Bleeding is minimal No fever/ chills/ CP/ SOB/ N&V/ Leg pain Breast feeding without problems Vital Signs Temp Pulse Pulse Resp BP BP Pulse Ox 05/10/24 10:02 36.8 C 64 18 112/60 96 05/10/24 08:10 36.8 C 67 18 101/67 05/10/24 03:10 36.5 C 62 16 105/70 96 05/09/24 23:45 36.3 C L 67 16 111/71 96 O2 Del Method 05/10/24 10:02 05/10/24 08:10 Room Air 05/10/24 03:10 Room Air 05/09/24 23:45 Room Air Lab Results 05/09/24 05/09/24 05/09/24 Range/Units 00:00 00:05 14:45 WBC 13.92 H (4.8-10.8) K/ul RBC 4.18 L (4.20-5.40) M/uL Hgb 12.1 (12.0-16.0) g/dl Hct 36.6 L (37.0-47.0) % MCV 87.6 (80.0-100.0) fL MCH 28.9 (25.0-34.0) pg MCHC 33.1 (32.0-36.0) g/dL RDW Std Deviation 41.2 (36.4-46.3) fL RDW Coeff of Christiano 13.1 (11.5-14.5) % Plt Count 194 (130-400) K/uL MPV 10.7 (9.4-12.4) fL Glucose 88 (70-99(Fasting)) mg/dl POC Glucose 84 (70-99) mg/dl Urine Color Yellow Urine Appearance Clear (Clear) Urine pH 7.0 (4.5-7.5) Ur Specific [place] 1.018 (1.000-1.030) Urine Protein Trace H (Negative) Urine Glucose (UA) Negative (Negative) Urine Ketones 1+ H (Negative) Urine Blood 2+ H (Negative) Urine Nitrite Negative (Negative) Urine Bilirubin Negative (Negative) Urine Urobilinogen Negative (Negative) Ur Leukocyte Esterase 2+ H (Negative) Urine WBC (Auto) 11-20 H (0-5) /hpf Urine RBC (Auto) >20 H (0-2) /hpf U Hyaline Cast (Auto) 0-2 (0-2) /lpf U Epithel Cells (Auto) 0-2 (0-2) /hpf Urine Bacteria (Auto) None Seen (None Seen) Treponema pallidum Ab Negative (Negative) Blood Type Antibody Screen Screen (Negative) 05/10/24 Range/Units 06:34 WBC 14.19 H (4.8-10.8) K/ul RBC 3.82 L (4.20-5.40) M/uL Hgb 11.4 L (12.0-16.0) g/dl Hct 33.7 L (37.0-47.0) % MCV 88.2 (80.0-100.0) fL MCH 29.8 (25.0-34.0) pg MCHC 33.8 (32.0-36.0) g/dL RDW Std Deviation 42.8 (36.4-46.3) fL RDW Coeff of Christiano 13.2 (11.5-14.5) % Plt Count 180 (130-400) K/uL MPV 11.0 (9.4-12.4) fL Glucose (70-99(Fasting)) mg/dl POC Glucose (70-99) mg/dl Urine Color Urine Appearance (Clear) Urine pH (4.5-7.5) Ur Specific [place] (1.000-1.030) Urine Protein (Negative) Urine Glucose (UA) (Negative) Urine Ketones (Negative) Urine Blood (Negative) Urine Nitrite (Negative) Urine Bilirubin (Negative) Urine Urobilinogen (Negative) Ur Leukocyte Esterase (Negative) Urine WBC (Auto) (0-5) /hpf Urine RBC (Auto) (0-2) /hpf U Hyaline Cast (Auto) (0-2) /lpf U Epithel Cells (Auto) (0-2) /hpf Urine Bacteria (Auto) (None Seen) Treponema pallidum Ab (Negative) Blood Type O Negative Antibody Screen NEGATIVE Screen Negative (Negative) PE: General: Alert, orientedx3, NAD Abd: soft, NT, fundus firm, below Umbilicus Perineum intact, Lochia rubra minimal Ext; NT, no edema AP: 28 yo s/p , ppd# 1 VSS Afebrile doing well Continue routine care All questions were answered D/C home tomorrow Results & Data Vital Signs (Past 12 Hours) Vital Signs Temp Pulse Pulse Resp BP BP Pulse Ox 05/10/24 10:02 36.8 C 64 18 112/60 96 05/10/24 08:10 36.8 C 67 18 101/67 05/10/24 03:10 36.5 C 62 16 105/70 96 05/09/24 23:45 36.3 C L 67 16 111/71 96 O2 Del Method 05/10/24 10:02 05/10/24 08:10 Room Air 05/10/24 03:10 Room Air 05/09/24 23:45 Room Air
[2024-05-10 19:34] VITALS: O2SAT 95
[2024-05-10] MEDS: bisacodyL 5 MG TABEC PO SCH (20:32)
[2024-05-11 06:30] LABS: Hematocrit (blood only) 36.4 % (37.0-47.0); Hemoglobin 12.1 g/dl (12.0-16.0)
[2024-05-11 11:01] VITALS: BP 123/83; PULSE 76; TEMP 98.1
== END 2024-05-11 15:15 | disposition home or self-care (01) | DRG 807 ==
LOC: OPB 23:03 → 4S1 23:07 → 4E2 05-09 18:30